=== PATIENT | female | born 1935 | race Caucasian/White ===

== ENCOUNTER → 2016-06-10 | Outpatient (CLI) | payer OTHER ==
[~2016-06-10] MED LIST: ACET-1256 PO; GLYB5TAB8 PO; IBUP-103 PO; LPR25 PO; METF750T PO; SIMV40TA2 PO; SITA100T3 PO; SULF800T23 PO
[2016-06-10 12:32] LABS: ESTIMATED AVERAGE GLUCOSE 154 mg/dl; HA1C FLAG Normal (Normal)
[2016-06-10 12:34] LABS: ALT/SGPT 39 U/L (12-78); BLOOD UREA NITROGEN 10 mg/dl (7-18); BUN/CREATININE RATIO 15.5 (10-20); CALCIUM 9.3 mg/dl (8.5-10.1); CARBON DIOXIDE 27 mmol/L (21-32); CHLORIDE 107 mmol/L (98-107); CHOLESTEROL 152 mg/dl (0-200); CREATININE 0.62 mg/dl (0.60-1.20); GLUCOSE 131 mg/dl (70-99); POTASSIUM 3.9 mmol/L (3.5-5.1); SODIUM 143 mmol/L (136-145)
[2016-06-10 12:37] LABS: ALB/GLOB RATIO 0.9 (0.9-2); ALKALINE PHOSPHATASE 131 U/L (45-117); AST/SGOT 46 U/L (15-37); HDL CHOLESTEROL 51 mg/dl; LDL CHOLESTEROL CALCULATED 71 mg/dl; TRIGLYCERIDES 150 mg/dl (0-150); VERY LOW DENSITY LIPOPROT CALC 30 mg/dl
== END | disposition home or self-care (01) ==
LOC: C.LABPVFM 10:14
PROVIDERS: ATTEND Family Medicine
DX: E11.9 Type 2 diabetes mellitus without complications (principal); E78.5 Hyperlipidemia, unspecified; I48.92 Unspecified atrial flutter; Z79.01 Long term (current) use of anticoagulants

== ENCOUNTER → 2016-06-12 | Outpatient (CLI) | payer OTHER ==
[2016-06-12 19:07] LABS: RATIO 12.3 mcg/mg (0-30.0)
== END | disposition home or self-care (01) ==
LOC: C.LABPVFM 11:45
PROVIDERS: ATTEND Family Medicine
DX: E11.9 Type 2 diabetes mellitus without complications (principal); E78.5 Hyperlipidemia, unspecified; I48.92 Unspecified atrial flutter; Z79.01 Long term (current) use of anticoagulants

== ENCOUNTER 2016-10-27 20:54 | Emergency (ER) | payer OTHER ==
[~2016-10-27] VITALS: Ht 162.6 cm; Wt 83.9 kg
[~2016-10-27 20:54] MED LIST changes: -SULF800T23 PO
[2016-10-27 21:02] VITALS: Ht 162.6 cm; Wt 83.9 kg
--- NOTE | 2016-10-27 21:47 | EMERGENCY ROOM VISIT NOTE ---
History Report prepared by Keshawn: Jean Jj Under the Supervision of: Dr. Daren Bui D.O. First contact with patient: 21:31 Chief Complaint: URINARY SYMPTOMS Stated Complaint: POOSIBLE UTI - FREQUENT URGE TO PEE & SOME PAIN History of Present Illness The patient is an 80 year old female who presents to the Emergency Room with complaints of persistent "burning" with urination that began this morning, several hours prior to arrival. The patient states that she has also been experiencing increased frequency today as well. She noted that after going voiding today she immediately felt the need to urinate again. She denies any associated back pain, fever, or hematuria. Source of History: patient Onset: Several hours EMERGENCY MEDICAL DISPATCHER Position: other (Genitourinary) Quality: burning (with urination) Timing: other (Persistent) Associated Symptoms: No back pain, No fevers Review of Systems See HPI for pertinent positives and negatives. A total of ten systems were reviewed and were otherwise negative. Past Medical & Surgical Medical Problems: (1) Atrial Fibrillation (2) Hyperlipidemia Nec/Nos (3) Hypertension Nos (4) Obesity, Nos Family History Diabetes mellitus FH: heart disease Social History Smoking Status: Never Smoker Marital Status: Housing Status: lives with family Occupation Status: retired Current/Historical Medications Scheduled Glyburide (Micronase), 5 MG PO BID Metformin Hcl (Glucophage Er), 750 MG PO BID Metoprolol Tartrate (Lopressor), 25 MG PO BID Simvastatin (Zocor), 40 MG PO QPM Sitagliptin Phosphate (Januvia), 100 MG PO DAILY Scheduled PRN Acetaminophen (Tylenol), 500 MG PO Q8 PRN Ibuprofen Tab (Advil), 200 MG PO Q8 PRN Allergies Uncoded Allergies: BEE STINGS (Allergy, Severe, TONGUE SWELLED, 02/10/13) Physical Exam Vital Signs Date Time Temp Pulse Resp B/P Pulse Ox O2 Delivery O2 Flow Rate FiO2 10/27/16 21:02 36.5 60 16 122/63 93 Room Air Physical Exam GENERAL: Awake, alert, well-appearing, in no distress HENT: Normocephalic, atraumatic. Oropharynx unremarkable. EYES: Normal conjunctiva. Sclera non-icteric. NECK: Supple. No nuchal rigidity. FROM. No JVD. RESPIRATORY: Clear to auscultation. CARDIAC: Regular rate, normal rhythm. Extremities warm and well perfused. Pulses equal. ABDOMEN: Soft, non-distended. No tenderness to palpation. No rebound or guarding. No masses. RECTAL: Deferred. MUSCULOSKELETAL: Chest examination reveals no tenderness. The back is symmetrical on inspection without obvious abnormality. There is no CVA tenderness to palpation. No joint edema. LOWER EXTREMITIES: Calves are equal size bilaterally and non-tender. No edema. No discoloration. NEURO: Normal sensorium. No sensory or motor deficits noted. SKIN: No rash or jaundice noted. Medical Decision & Procedures Laboratory Results Test 10/27/16 21:30 Urine Color DK YELLOW Urine Appearance CLEAR (CLEAR) Urine pH 5.0 (4.5-7.5) Urine Specific Mcgrady 1.033 (1.000-1.030) Urine Protein NEG (NEG) Urine Glucose (UA) NEG (NEG) Urine Ketones TRACE (NEG) Urine Occult Blood NEG (NEG) Urine Nitrite NEG (NEG) Urine Bilirubin NEG (NEG) Urine Urobilinogen NEG (NEG) Urine Leukocyte Esterase NEG (NEG) Laboratory results reviewed by me Medications Administered Medications (Trade) Dose Ordered Sig/Edison Route Start Time Stop Time Status Last Admin Dose Admin Trimethoprim/ Sulfamethoxazole (Septra Ds 800/ 160MG Tab) 1 tab NOW STAT PO 10/27/16 22:16 10/27/16 22:17 DC 10/27/16 22:16 1 TAB ED Course 2133: The patient was evaluated in room C5. A complete history and physical exam was performed. 2216: Ordered Trimethoprim 1 tablet PO 9: I reevaluated the patient. She is in no distress on reexamination. I discussed results and discharge instructions: She verbalized understanding and agreement. The patient is ready for discharge. Medical Decision Differential Diagnosis include: Urinary tract infection, Cystitis Impression Primary Impression: Acute cystitis Scribe Attestation The scribe's documentation has been prepared under my direction and personally reviewed by me in its entirety. I confirm that the note above accurately reflects all work, treatment, procedures, and medical decision making performed by me. Departure Information Dispostion Home / Self-Care Prescriptions Sulfa/Trimethoprim (Bactrim Ds 800MG/160MG) Tab 1 TAB PO BID, #6 TAB Prov: Daren Bui, DO 10/27/16 Referrals No Doctor, Assigned (PCP) Patient Instructions ED UTI Cystitis Female, My [facility] [facility] Problem Qualifiers Primary Impression: Acute cystitis Hematuria presence: without hematuria Qualified Codes: N30.00 - Acute cystitis without hematuria
[2016-10-27 22:08] LABS: URINE APPEARANCE CLEAR (CLEAR); URINE BILIRUBIN NEG (NEG); URINE COLOR DK YELLOW; URINE NITRITE NEG (NEG); URINE SPECIFIC GRAVITY 1.033 (1.000-1.030); UROBILINOGEN NEG (NEG)
[2016-10-27 22:12] LABS: MANUAL MICROSCOPIC REQUIRED? NO; REVIEW REQ? NO
[2016-10-27] MEDS ORDERED: SULFAMETHOXAZOLE/TRIMETHOPRIM DS 800/160MG TAB PO STA (22:16)
[2016-10-27] MEDS ORDERED: SULF800T23 PO (22:25)
[2016-10-27 22:36] VITALS: BP 144/78; PULSE 55; TEMP 36.5; O2SAT 95
== END 2016-10-27 22:37 | disposition home or self-care (01) ==
LOC: C.EDB 20:56 → C.EDC 22:37
DX: N30.00 Acute cystitis without hematuria (principal); I48.91 Unspecified atrial fibrillation; E78.5 Hyperlipidemia, unspecified; I10 Essential (primary) hypertension; E66.9 Obesity, unspecified; Z83.3 Family history of diabetes mellitus; Z82.49 Family history of ischemic heart disease and other diseases of the circulatory system; Z79.899 Other long term (current) drug therapy

== ENCOUNTER → 2017-01-09 | Outpatient (CLI) | payer OTHER ==
[~2017-01-09] MED LIST changes: +SULF800T23 PO
[2017-01-09 12:34] LABS: HEMATOCRIT 38.7 % (37-47); MEAN CELL VOLUME 92.6 fL (80-100); MEAN CORPUSCULAR HEMOGLOBIN 29.2 pg (25-34); MEAN CORPUSCULAR HGB CONC 31.5 g/dl (32-36); MEAN PLATELET VOLUME 10.2 fL (7.4-10.4); PLATELET COUNT 228 K/uL (130-400); RED BLOOD COUNT 4.18 M/uL (4.2-5.4); WHITE BLOOD COUNT 5.37 K/uL (4.8-10.8)
[2017-01-09 12:58] LABS: ALT/SGPT 33 U/L (12-78); AST/SGOT 40 U/L (15-37); BLOOD UREA NITROGEN 15 mg/dl (7-18); BUN/CREATININE RATIO 24.2 (10-20); CALCIUM 9.3 mg/dl (8.5-10.1); CARBON DIOXIDE 30 mmol/L (21-32); CHLORIDE 106 mmol/L (98-107); CHOLESTEROL 152 mg/dl (0-200); CREATININE 0.62 mg/dl (0.60-1.20); GLUCOSE 103 mg/dl (70-99); POTASSIUM 3.8 mmol/L (3.5-5.1); SODIUM 141 mmol/L (136-145); TRIGLYCERIDES 118 mg/dl (0-150); VERY LOW DENSITY LIPOPROT CALC 24 mg/dl
[2017-01-09 13:01] LABS: ALKALINE PHOSPHATASE 104 U/L (45-117); CHOLESTEROL/HDL RATIO 3.1; HDL CHOLESTEROL 49 mg/dl; LDL CHOLESTEROL CALCULATED 79 mg/dl
[2017-01-09 13:12] LABS: ESTIMATED AVERAGE GLUCOSE 137 mg/dl; HA1C FLAG Normal (Normal)
== END | disposition home or self-care (01) ==
LOC: C.LABPVFM 08:31
PROVIDERS: ATTEND Family Medicine
DX: Z51.81 Encounter for therapeutic drug level monitoring (principal); Z79.01 Long term (current) use of anticoagulants; I48.92 Unspecified atrial flutter; E11.9 Type 2 diabetes mellitus without complications; E78.5 Hyperlipidemia, unspecified; R42 Dizziness and giddiness; L71.9 Rosacea, unspecified

== ENCOUNTER → 2017-08-28 | Outpatient (CLI) | payer OTHER ==
[~2017-08-28] MED LIST changes: -SULF800T23 PO
[2017-08-28 13:37] LABS: HEMOGLOBIN A1C 6.5 % (4.5-5.6)
[2017-08-28 13:57] LABS: ALBUMIN 3.6 gm/dl (3.4-5.0); ALT/SGPT 26 U/L (12-78); BLOOD UREA NITROGEN 12 mg/dl (7-18); CALCIUM 9.4 mg/dl (8.5-10.1); CARBON DIOXIDE 31 mmol/L (21-32); CHOLESTEROL 137 mg/dl (0-200); CREATININE 0.56 mg/dl (0.60-1.20); GLUCOSE 107 mg/dl (70-99); POTASSIUM 3.9 mmol/L (3.5-5.1); SODIUM 141 mmol/L (136-145)
[2017-08-28 13:59] LABS: ALKALINE PHOSPHATASE 103 U/L (45-117); AST/SGOT 32 U/L (15-37); LDL CHOLESTEROL CALCULATED 58 mg/dl; TOTAL PROTEIN 7.4 gm/dl (6.4-8.2)
== END | disposition home or self-care (01) ==
LOC: C.LABPVFM 09:48
PROVIDERS: ATTEND Family Medicine
DX: E11.9 Type 2 diabetes mellitus without complications (principal); E78.5 Hyperlipidemia, unspecified; R74.8 Abnormal levels of other serum enzymes

== ENCOUNTER → 2017-10-02 | Outpatient (CLI) | payer OTHER ==
--- NOTE | 2017-10-02 16:54 | DIAGNOSTIC IMAGING REPORT ---
R WRIST MIN 3 VIEWS ROUTINE CLINICAL HISTORY: SWELLING OF RT THUMB, RT WRIST PAIN pain. Edema. COMPARISON: None. DISCUSSION: Generalized degenerative change throughout all major structures of the hand and wrist. Osteopenia. Degenerative change of the interphalangeal joints throughout. No evidence for fracture or dislocation. There is no evidence for soft tissue swelling. IMPRESSION: Significant degenerative change throughout all major osseous structures. No acute process. The above report was generated using voice recognition software. It may contain grammatical, syntax or spelling errors. Electronically signed by: Joaquin Clay M.D. 10/02/2017 4:52 PM Dictated Date/Time: 10/02/2017 4:52 PM
--- NOTE | 2017-10-02 16:55 | DIAGNOSTIC IMAGING REPORT ---
R FINGER(S) MIN 2 VIEWS ROUTINE CLINICAL HISTORY: SWELLING OF RT THUMB, RT WRIST PAIN pain. Edema. COMPARISON: None DISCUSSION: Considerable degenerative change of the first carpometacarpal joint. Moderate degenerative change of the metacarpal phalangeal and interphalangeal joint. Osteopenia. No acute bony abnormality. No evidence for fracture or dislocation. There is no evidence for soft tissue swelling. IMPRESSION: Generalized degenerative change. Osteopenia. No acute bony abnormality The above report was generated using voice recognition software. It may contain grammatical, syntax or spelling errors. Electronically signed by: Joaquin Clay M.D. 10/02/2017 4:53 PM Dictated Date/Time: 10/02/2017 4:53 PM
== END | disposition home or self-care (01) ==
LOC: C.RADPV 16:16
PROVIDERS: ATTEND Family Medicine
DX: R22.31 Localized swelling, mass and lump, right upper limb (principal); M25.531 Pain in right wrist

== ENCOUNTER 2020-01-19 07:27 | Observation (INO) ==
--- NOTE | 2020-01-10 10:20 | PAT Medication Instructions ---
Medication Instructions Date of Service January 10, 2020 Home Medications Medication Instructions Recorded apixaban 5 mg tablet 5 mg PO BID #180 tab 11/18/19 blood sugar diagnostic See Rx Instructions .ROUTE 11/18/19 .COMPLEX #150 strip metformin 750 mg tablet,extended 750 mg PO BID #180 tab 11/18/19 release 24 hr metoprolol tartrate 25 mg tablet 25 mg PO BID #180 tab 11/18/19 diclofenac sodium 1 % topical gel See Rx Instructions TOP ONCE vitamins A,C,S-gdix-oaospa 1 tab PO BID ferrous sulfate 1 dose PO QAM apixaban 5 mg tablet 5 mg PO BID metformin 750 mg tablet,extended release 24 hr 750 mg PO BID metoprolol tartrate 25 mg tablet 25 mg PO BID mirabegron [Myrbetriq] 25 mg PO QAM simvastatin 40 mg PO QPM sitagliptin 50 mg PO QAM ASK your prescriber and surgeon apixaban 5 mg tablet 5 mg PO BID (in order for spinal anesthesia, Apixaban/Eliquis needs to be stopped 72 hours/3 days before surgery. Please check if okay with doctor that prescribes this to you) STOP taking 2 weeks before surgery (or as soon as possible if surgery is within 2 weeks) vitamins A,C,Z-bnpn-xvtkpo 1 tab PO BID STOP taking 24 hours before surgery diclofenac sodium 1 % topical gel See Rx Instructions TOP ONCE DO NOT take the morning of surgery ferrous sulfate 1 dose PO QAM metformin 750 mg tablet,extended release 24 hr 750 mg PO BID mirabegron [Myrbetriq] 25 mg PO QAM sitagliptin 50 mg PO QAM Take morning of surgery With a small sip of water, OTHERWISE NOTHING TO EAT OR DRINK AFTER MIDNIGHT: metoprolol tartrate 25 mg tablet 25 mg PO BID Take evening before surgery metformin 750 mg tablet,extended release 24 hr 750 mg PO BID metoprolol tartrate 25 mg tablet 25 mg PO BID simvastatin 40 mg PO QPM Other Notes If you have any questions please call us at [phone] or [phone] or [phone] or [phone]
--- NOTE | 2020-01-11 08:14 | Anesthesiology Consultation ---
Date of Service January 11, 2020 Assessment & Plan (1) Encounter for pre-operative examination: - Awaiting surgeon-ordered PCP clearance scheduled 01/11 ([facility]). - Awaiting tracings from 01/06 EKG (done at [facility] cardiology office visit). - Cardiology office visit: 01/07/20: "Based on her functional status without limiting cardiopulmonary symptoms, normal EKG tracing, and that her cardiac risk factors are very well controlled -- patient is an acceptable surgical risk to proceed with bilateral mastectomy as scheduled - provided she take her usual dose of Lopressor 25 mg the morning of surgery with sips of water. Patient was advised to hold Eliquis x 48 hours leading up to surgery. There is no need for further cardiac workup at this time. Resume Eliquis postoperatively when hemostasis allows" *Per PAT assessment on 01/10: Travel screen negative. No known COVID-19 positive contacts. No current COVID-19 related symptoms. Surgeon arranging preop COVID testing 01/13 ([place]). Awaiting results. - Eliquis instructions per surgeon/prescriber. - Check [facility] AM DOS Chart Review Chart Review: Patient seen in Pre Admission Testing Teaching & Discussion Pre-Anesthesia Teaching/Discussion Notes: Instructed NPO after midnight before surgery,except medications with 15 cc of water. Medication instructions provided according to the PAT guidelines. History Surgery Operation Date: 01/19/20 09:40 Proposed Procedures p Bilateral Breast Mastectomy with Right [place] Lymph Node Biopsy - Daren Limon DO, FACS Height/Weight Height: 5 ft 4 in Weight: 65.7 kg Allergies Allergy/AdvReac Type Severity Reaction Status Date / Time BEE STINGS Allergy Severe TONGUE Uncoded 01/10/20 10:13 SWELLING Medications Home Medications Medication Instructions Recorded Confirmed Last Taken diclofenac sodium 1 % topical gel See Rx Instructions TOP ONCE gm 12/28/18 01/07/20 Unknown vitamins A,C,Z-vfjz-bthwtd 1 tab PO BID 12/28/18 01/07/20 Unknown ferrous sulfate 1 dose PO QAM 01/07/19 01/07/20 Unknown lancets 28 gauge #25 ea 01/14/19 01/07/20 Unknown apixaban 5 mg tablet 5 mg PO BID #180 tab 11/18/19 01/07/20 Unknown blood sugar diagnostic See Rx Instructions .ROUTE 11/18/19 01/07/20 Unknown .COMPLEX #150 strip metformin 750 mg tablet,extended 750 mg PO BID #180 tab 11/18/19 01/07/20 Unknown release 24 hr metoprolol tartrate 25 mg tablet 25 mg PO BID #180 tab 11/18/19 01/07/20 Unknown mirabegron [Myrbetriq] 25 mg PO QAM 01/07/20 01/07/20 Unknown simvastatin 40 mg PO QPM 01/07/20 01/07/20 Unknown sitagliptin 50 mg PO QAM 01/07/20 01/07/20 Unknown Past Medical History Medical History (Updated 01/11/20 @ 10:56 by Estfeania Barroso) Anemia chronic, baseline hgb 10-11 range per chart review Atrial fibrillation dx 2012 - w/ kelsey - on eliquis Atypical ductal hyperplasia of left breast Bilateral breast cancer DM type 2 (diabetes mellitus, type 2) NIDDM CIRCLE (hard of hearing) Hyperlipidemia Osteoarthritis Paroxysmal atrial flutter Rosacea Vertigo Exercise / Class Metabolic Activity III < 4 Walking/Shop/Light housework Past Family History Family History Sister Cancer Other No family history of adverse response to anesthesia Denies family history of Ovarian cancer Prostate cancer Myocardial infarction Breast cancer Lung cancer Colorectal cancer Past Surgical History Surgical History History of appendectomy History of breast biopsy History of cataract surgery History of hysterectomy Past Anesthesia History No Hx of Anesthesia Complications and No Family Hx of Anesthesia Complications History of PONV No Hx of PONV and Hx of Motion Sickness (occasional) Social History Smoking Status: Never smoker Do You Dip or Chew Tobacco: No Hx Alcohol Use: No Hx Substance Use: No Review of Systems Patient denies chest pain, shortness of breath, fever, chills, cough, wheezing, palpitations. Physical Exam Vital Signs VITALS BP 102/52 P 58 TEMP 98.2 SP02 95%RA RESP 18 PHYSICAL Full neck and c-spine range of motion. Full TMJ range of motion. TMD 2.5 finger breaths Mallampati Score 2 Dentition: upper partial Lungs: clear throughout to auscultation Cardiac: regular rate and rhythm, no murmurs noted Spine: normal Carotid arteries: negative bruit Extremities: no edema Testing Laboratory Results 01/11/20 08:26 01/11/20 08:26 11/11/19 HGBA1C 6.0% Electrocardiogram Date: 01/07/20 "Sinus bradycardia at 57 bpm, normal electrical intervals, normal R wave progression" per 01/07/20 [facility] cardiology office visit note. Attempting to obtain official tracings. Chest X-Ray Date: 01/11/20 Findings: + NAD
--- NOTE | 2020-01-11 08:58 | XRay Report ---
XR chest Pre-admission PA/Lat CLINICAL HISTORY: pat preoperative COMPARISON STUDY: 02/08/2016 FINDINGS: The bones soft tissues and hemidiaphragms are normal. The cardiomediastinal silhouette is n ormal. The lungs are clear. The pulmonary vasculature is normal. IMPRESSION: Negative chest. ACT 112: Negative or not required by law. The above report was generated using voice recognition software. It may contain grammatical, syntax or spelling errors. Electronically signed by: Joaquin Clay M.D. 01/11/2020 8:56 AM
[2020-01-11 10:10] LABS: Basophils # (auto) 0.02 K/uL (0-0.2); Basophils % (auto) 0.4 %; Eosinophils # (auto) 0.21 K/uL (0-0.5); Eosinophils % (auto) 4.4 %; Hematocrit (blood only) 32.7 % (37-47); Hemoglobin 10.2 g/dL (12.0-16.0); Lymphocytes # (auto) 0.84 K/uL (1.2-3.4); Lymphocytes % (auto) 17.5 %; Mean Corpuscular Hemoglobin 29.1 pg (25-34); Mean Corpuscular Hgb Conc 31.2 g/dL (32-36); Mean Corpuscular Volume 93.4 fL (80-100); Monocytes # (auto) 0.51 K/uL (0.11-0.59); Monocytes % (auto) 10.6 %; Neutrophils # (auto) 3.21 K/uL (1.4-6.5); Neutrophils % (auto) 67.1 %; Platelet Count 277 K/uL (130-400); RDW Coefficient of Variation 15.5 % (11.5-14.5); RDW Standard Deviation 52.5 fL (36.4-46.3); White Blood Count 4.79 K/uL (4.8-10.8)
[2020-01-11 10:21] LABS: Albumin Level 3.2 gm/dl (3.4-5.0); BUN Creatinine Ratio 23.8 (10-20); Bilirubin Direct 0.2 mg/dl (0-0.2); Est GFR (African American) 96.3; Est GFR (Non-African American) 83.1; Potassium 3.8 mmol/L (3.5-5.1)
[2020-01-11 10:24] LABS: Bilirubin,Total 0.7 mg/dl (0.2-1); Total Protein 6.7 gm/dl (6.4-8.2)
[~2020-01-19 07:27] MED LIST changes: -ACET-1256 PO; +CEFAZOLIN 2000MG 2,000 MG/15 ML SYR IV SCH; -GLYB5TAB8 PO; -IBUP-103 PO; -LPR25 PO; +LR 15ML/HR IV SCH; -METF750T PO; -SIMV40TA2 PO; -SITA100T3 PO
--- NOTE | 2020-01-19 09:58 | Nuclear Medicine Report ---
LYMPHOSCINTIGRAPHY HISTORY: Right breast cancer. RADIOTRACER: 0.5-5 mCi of lymphoseek. Study/Images: static anterior and lateral. PROCEDURE: Using standard sterile technique, four intradermal and one deep injections of radiotracer were placed in the right periareolar breast. The patient tolerated the procedure well without any complications. FINDINGS: Tracer localization was demonstrated at the injection site. In addition, focal tracer uptake in the r ight axilla was demonstrated and marked cutaneously. IMPRESSION: Lymphoscintigraphy was performed and a right axillary sentinel lymph node localized and marked for bi opsy. ACT 112: Negative or not required by law. Electronically signed by: Hermelindo Nguyen M.D. 01/19/2020 9:57 AM
--- NOTE | 2020-01-19 11:24 | History & Physical Bridge Note ---
Date of Service January 19, 2020 History & Physical Bridge Note I have examined the patient, reviewed the History & Physical and in the interval since the performance of the History & Physical I have noted the following changes of clinical significance: [place] lymph node injection performed, lymphoscintigraphy confirms uptake into axilla. No other changes noted
[2020-01-19] MEDS ORDERED: ONDANSETRON INJ 2 MG/ML 2 ML VIAL IV PRN ×2 (12:06→17:15)
[2020-01-19] MEDS ORDERED: HYDROmorphone INJ 1 MG/ML SYRINGE IV PRN (12:06)
[2020-01-19] MEDS ORDERED: fentaNYL citrate 100 MCG/2 ML VIAL IV PRN (12:06)
[2020-01-19] MEDS ORDERED: ePHEDrine sulfate 50 MG/ML AMP IV PRN (12:06)
[2020-01-19] MEDS ORDERED: ATROPINE SULFATE 0.1 MG/ML 10ML SYR IV PRN (12:06)
[2020-01-19] MEDS ORDERED: BUPIVACAINE 0.5 % 5 MG/1 ML MPF 30ML VIAL ONE (12:24)
[2020-01-19] MEDS ORDERED: ISOSULFAN BLUE 10 MG/ML VIAL 5 ML ONE (12:24)
[2020-01-19] MEDS ORDERED: LIDOCAINE HCL 2% 2 ML VIAL/AMP(20MG/ML) INFIL ONE (12:25)
[2020-01-19] MEDS ORDERED: ONDANSETRON INJ 2 MG/ML 2 ML VIAL ONE (12:25)
[2020-01-19] MEDS ORDERED: PROPOFOL IV EMULSION 10 MG/ML 20 ML VIAL IV ONE (12:25)
[2020-01-19] MEDS ORDERED: ROCURONIUM BROMIDE 10 MG/ML 5 ML VIAL IV ONE (12:25)
[2020-01-19] MEDS ORDERED: fentaNYL citrate 100 MCG/2 ML VIAL ONE ×2 (12:25→13:31)
[2020-01-19] MEDS ORDERED: BUPIVACAINE LIPOSOME 1.3% 266 MG/20 ML VIAL ONE (13:04)
[2020-01-19] MEDS ORDERED: GLYCOPYRROLATE 0.2 MG/ML VIAL ONE ×2 (13:41→13:57)
[2020-01-19] MEDS ORDERED: NEOSTIGMINE METHYLSULFATE 5 MG/5 ML SYR ONE (13:56)
[2020-01-19] MEDS ORDERED: PHENYLEPHRINE 100MCG/ML 5ML SYR ONE (14:10)
[2020-01-19] MEDS ORDERED: ePHEDrine sulfate 50 MG/ML SYR ONE (14:11)
[2020-01-19] MEDS ORDERED: MoRPHine SULFATE 2 MG/ML CARP ONE (14:36)
--- NOTE | 2020-01-19 15:01 | Operative Report ---
PG Post Operative Report Pre & Post Diagnosis Operation Date: 01/19/20 11:30 Pre-Op Diagnosis: Invasive ductal carcinoma of right breast Post-Op Diagnosis: Invasive ductal carcinoma of right breast I identified the patient and participated in the time-out.: Yes Procedure Operation Date: 01/19/20 11:30 Actual Procedures p Bilateral Breast Mastectomy with Right [place] Lymph Node Biopsy(Bilateral) - Daren Limon DO, CAROL Surgeon Daren Limon DO, CAROL Polyethylene Bag Machine Operator Flakita John; Francesca Caballero Estimated Blood Loss 40 Findings Consistent with Post-Op Diagnosis Left simple mastectomy performed. Right sentinel lymph node biopsy performed, packet of 2-3 lymph nodes excised. Right simple mastectomy performed, 10 mm GARY drains placed bilaterally, Exparel mixed with Marcaine injected both sides. Specimens Left mastectomy Left excess tissue Right axillary sentinel lymph node Right mastectomy Drains 10 mm GARY drains in bilateral mastectomy beds Anesthesia Type General Complications none Disposition Accompanied Patient To Recovery: No Disposition: Recovery Room Indications 84-year-old female with invasive ductal carcinoma of the right breast and atypical ductal proliferation of the left breast. We discussed options to include left breast biopsy and right breast lumpectomy with sentinel lymph node biopsy versus mastectomies. The patient elects for bilateral mastectomies and right axillary sentinel lymph node biopsy. The risks of the procedure were discussed, all questions were answered, and the patient agreed to proceed with surgery as planned. Description of Procedure The patient had a sentinel lymph node injection performed prior to the procedure and lymphoscintigraphy showed uptake into the right axilla. The axilla was examined in the OR with a gamma probe and confirmed uptake into the axilla. The patient was properly identified, consented, and taken to the operating room where she was placed in the supine position. General endotracheal anesthesia was induced. SCDs and a safety belt were placed. Preoperative antibiotics were administered. The patient's bilateral chest was prepped and draped in the standard sterile fashion. Surgical timeout was performed and all parties were in agreement that this was the correct patient and procedure to be performed and we continued as planned. A transversely oriented elliptical incision was made that encompassed the nipple-arreolar complex on the left. Flaps were raised to the clavicle superiorly, the sternum medially, and the rectus sheath inferiorly. The breast was then taken off the chest wall including the pectoralis fascia from medial to lateral. We then continued the dissection along the lateral border of the pectoralis muscle and included the axillary tail of Lai. We completed the dissection and the specimen was removed. The specimen was oriented. The wound was irrigated and hemostasis was confirmed. A 10 mm GARY drain was placed underneath the mastectomy flap. This was secured into place with 2-0 nylon suture. The skin was closed with interrupted 3-0 Vicryl deep dermal sutures, followed by 4-0 Monocryl running subcuticular suture. We now turned our attention to the right axillary sentinel lymph node biopsy. An incision was made in the right axilla in a natural skin crease and deepened down to subcutaneous tissue with electrocautery. The gamma probe was used to localize the sentinel lymph node which read 130 ex vivo. This appeared to be a packet of 2-3 lymph nodes, the second of which measured approximately 30 with a gamma probe. The lymphovascular stalks entering and exiting this packet of lymph nodes were ligated with 3-0 silk ties. The axilla was reexamined with the gamma probe and was silent. The wound was packed and attention turned to the breast lesion. The skin was closed with interrupted 3-0 Vicryl deep dermal sutures followed by 4-0 Monocryl running subcuticular sutures. Attention was then turned to the right mastectomy. A transversely oriented elliptical incision was made that encompassed the nipple-arreolar complex on the right. Flaps were raised to the clavicle superiorly, the sternum medially, and the rectus sheath inferiorly. The breast was then taken off the chest wall including the pectoralis fascia from medial to lateral. We then continued the dissection along the lateral border of the pectoralis muscle and included the axillary tail of Lai. We completed the dissection and the specimen was re moved. The specimen was oriented. The wound was irrigated and hemostasis was confirmed. A 10 mm GARY drain was placed underneath the mastectomy flap. This was secured into place with 2-0 nylon suture. The skin was closed with interrupted 3-0 Vicryl deep dermal sutures, followed by 4-0 Monocryl running subcuticular suture. Dermabond was then placed over all the incisions. The patient was extubated in the operating room and taken to the PACU where she recovered without apparent incident. All sponge, instrument and needle counts were correct at the conclusion of the procedure. The patient tolerated the procedure well. The physician's assistants were present for the entirety of the case and were critical in positioning the patient, prepping and draping, retraction and exposure, excision of the specimens, closure of the incisions, and placement of the dressings. I attest to the content of the Intraoperative Record and any orders documented therein. Any exceptions are noted below.
--- NOTE | 2020-01-19 16:33 | Anesthesiology Progress Note ---
Date of Service January 19, 2020 Anesthesia Post Procedure Vital Signs Vital Signs: Temp Pulse Pulse Resp BP Pulse Ox 01/19/20 16:20 36.5 C 50 L 17 158/50 H 98 01/19/20 16:10 53 L 14 155/57 H 100 01/19/20 16:00 49 L 15 162/65 H 100 01/19/20 15:50 48 L 15 145/64 H 100 01/19/20 15:46 36.2 C L 53 L 16 148/64 H 100 01/19/20 10:11 36.7 C 53 L 16 141/53 H 97 Pain Intensity Right Axilla: Pain Intensity: 2 Transfer of Care Handoff Completed per policy Notes Mental Status: alert / awake / arousable and participated in evaluation Patient Amnestic to Procedure: Yes Nausea / Vomiting: adequately controlled Pain: adequately controlled Airway Patency, RR, SpO2: stable & adequate BP & HR: stable & adequate Hydration State: stable & adequate Anesthetic Complications: no major complications apparent and Pt Satisfied with anesthetic care
[2020-01-19] MEDS ORDERED: GLUCOSE 10 TABS/TUBE PO PRN (17:15)
[2020-01-19] MEDS ORDERED: GLUCOSE 40% GEL 15 GM TUBE PO PRN (17:15)
[2020-01-19] MEDS ORDERED: MoRPHine SULFATE 4 MG/ML 1 ML CARP\\VIAL IV PRN (17:15)
[2020-01-19] MEDS ORDERED: INSULIN ASPART 100 UNITS/ML 3 ML PEN SC PRN (17:15)
[2020-01-19] MEDS ORDERED: CARBOHYDRATES FOR HYPOGLYCEMIA PO PRN (17:15)
[2020-01-19] MEDS ORDERED: MoRPHine SULFATE 10 MG/ML CARP/VIAL IV PRN (17:15)
[2020-01-19] MEDS ORDERED: OXYCODONE/ACETAMINOPHEN 5mg/325mg TAB PO PRN ×2 (17:15)
[2020-01-19] MEDS ORDERED: DEXTROSE 50% 50 ML SYRINGE IV PRN (17:15)
[2020-01-19] MEDS ORDERED: GLUCAGON FOR INJ 1 MG VIAL SQ PRN (17:15)
[2020-01-19] MEDS: LACTATED RINGER'S 1,000 ML IV SCH (17:30)
[2020-01-19] MEDS: ACETAMINOPHEN 325 MG TAB PO PRN (17:56)
[2020-01-19] MEDS ORDERED: CEFAZOLIN 2000MG 2,000 MG/15 ML SYR IV ONE (20:00)
[2020-01-19] MEDS: METOPROLOL TARTRATE 25 MG TAB PO SCH (20:55)
[2020-01-19] MEDS: INSULIN ASPART 100 UNITS/ML 3 ML PEN SC SCH (20:56)
[2020-01-19] MEDS ORDERED: SIMVASTATIN 40 MG TAB PO SCH (21:00)
[2020-01-20 06:20] LABS: Hematocrit (blood only) 27.9 % (37-47); Mean Corpuscular Hemoglobin 29.2 pg (25-34); Mean Corpuscular Hgb Conc 32.3 g/dL (32-36); Mean Corpuscular Volume 90.6 fL (80-100); Mean Platelet Volume 9.8 fL (7.4-10.4); Platelet Count 203 K/uL (130-400); RDW Coefficient of Variation 15.3 % (11.5-14.5); RDW Standard Deviation 50.6 fL (36.4-46.3); Red Blood Count 3.08 M/uL (4.2-5.4); White Blood Count 6.32 K/uL (4.8-10.8)
[2020-01-20] MEDS: LACTATED RINGER'S 1,000 ML IV SCH (06:27)
[2020-01-20 06:50] LABS: BUN Creatinine Ratio 13.8 (10-20); Calcium 8.6 mg/dl (8.5-10.1); Creatinine Clr Calc Pharmacy 44.4 ml/min; Est GFR (African American) 77.9; Est GFR (Non-African American) 67.2; Potassium 3.6 mmol/L (3.5-5.1)
[2020-01-20] MEDS: METOPROLOL TARTRATE 25 MG TAB PO SCH (09:00)
[2020-01-20] MEDS ORDERED: MIRABEGRON ER 25 MG TAB PO SCH (09:00)
[2020-01-20] MEDS: INSULIN ASPART 100 UNITS/ML 3 ML PEN SC SCH ×2 (09:06→12:29)
--- NOTE | 2020-01-20 14:19 | Surgery Progress Note ---
Date of Service January 20, 2020 Assessment & Plan (1) Invasive ductal carcinoma of right breast: POD #2 bilateral mastectomy and right axillary sentinel lymph node biopsy, doing well. Five-point drop in hematocrit not unexpected. Patient could potentially be discharged this afternoon. Possible discharge this afternoon versus tomorrow Wound care instructions and activity restrictions reviewed Follow-up in general surgery clinic next week for drain removal Return precautions given, call with questions or concerns Admission and Anticipated Discharge Date Admission Date: January 19, 2020 Subjective 84-year-old female POD #1 bilateral mastectomy with right axillary lymph node biopsy. Overall doing well, minimal pain. She tolerated lunch and was up in a chair for a long time today. She has ambulated. Still feeling tired. Physical Exam Constitutional: WD/WN, vitals as above Chest (Breasts): Additional Comments: Bilateral mastectomy flaps healing well without any evidence of necrosis or infection. Incisions healing well with Dermabond in place. Some ecchymosis to right axillary incision. GARY drains with serosanguineous output. Results & Data ([facility]) Vital Signs (Past 12 Hours) Vital Signs Temp Pulse Resp BP Pulse Ox 01/20/20 13:01 103/58 L 01/20/20 12:20 36.9 C 69 16 95/55 L 97 01/20/20 09:00 59 L 104/60 01/20/20 07:46 36.8 C 57 L 14 110/57 L 98 01/20/20 03:57 36.5 C 56 L 16 98/60 L 98 Laboratory Results Laboratory Results - last 24 hr 01/19/20 01/19/20 01/19/20 15:53 17:05 20:27 WBC RBC Hgb Hct MCV MCH MCHC RDW Std Deviation RDW Coeff of [place] Plt Count MPV Sodium Potassium Chloride Carbon Dioxide Anion Gap BUN Creatinine Est Cr Clr Drug Dosing Est GFR ( Amer) Est GFR (Non-Af Amer) BUN/Creatinine Ratio Glucose POC Glucose 130 H 137 H 148 H Calcium 01/20/20 01/20/20 01/20/20 05:49 05:49 08:02 WBC 6.32 RBC 3.08 L Hgb 9.0 L Hct 27.9 L MCV 90.6 MCH 29.2 MCHC 32.3 RDW Std Deviation 50.6 H RDW Coeff of [place] 15.3 H Plt Count 203 MPV 9.8 Sodium 143 Potassium 3.6 Chloride 107 Carbon Dioxide 29 Anion Gap 7.0 BUN 11 Creatinine 0.80 Est Cr Clr Drug Dosing 44.4 Est GFR ( Amer) 77.9 Est GFR (Non-Af Amer) 67.2 BUN/Creatinine Ratio 13.8 Glucose 107 H POC Glucose 108 H Calcium 8.6 01/20/20 11:49 WBC RBC Hgb Hct MCV MCH MCHC RDW Std Deviation RDW Coeff of [place] Plt Count MPV Sodium Potassium Chloride Carbon Dioxide Anion Gap BUN Creatinine Est Cr Clr Drug Dosing Est GFR ( Amer) Est GFR (Non-Af Amer) BUN/Creatinine Ratio Glucose POC Glucose 144 H Calcium PG Care Time/CCT Total # of Minutes Spent Total Time Spent with Patient: Total time spent is greater than 50% in coordination of care (as documented) at patient's floor/unit and/or counseling patient: Coding Level of Care Code 09092 Subseq Obs Care Lvl 1 Diagnoses Invasive ductal carcinoma of right breast C50.911
[2020-01-20] MEDS: ACETAMINOPHEN 325 MG TAB PO PRN (18:50)
--- NOTE | 2020-01-24 10:38 | Discharge Summary ---
Date of Service January 24, 2020 Principal Diagnosis Invasive ductal carcinoma of right breast Discharge Exam awake Gastrointestinal (Abdomen) Inspection/Auscultation: + abdominal surgical incision (incisions healing well with dermabond over top) and + abdominal surgical drain present (GARY x2 with serosangenious drainage) Discharge Data Allergies Allergy/AdvReac Type Severity Reaction Status Date / Time BEE STINGS Allergy Severe TONGUE Uncoded 01/19/20 10:04 SWELLING Procedures Performed Operation Date: 01/19/20 11:30 Actual Procedures p Bilateral Breast Mastectomy with Right [place] Lymph Node Biopsy(Bilateral) - Daren Limon DO, FACS Hospital Course (1) Invasive ductal carcinoma of right breast: This is an 84y F with a PMH of right breast cancer who presented to the [facility] on 01/19/20 for a scheduled bilateral mastectomy with right axillary sentinel lymph node biopsy. The patient tolerated the procedure well, see op note for full details. Post operatively the patient was transferred to the med/surg floor in stable condition with a regular diet, prn pain medication, and with GARY drain x2. On POD#1 patient was tolerating a regular diet and pain remained well controlled. Her vital signs were stable and GARY drains were with serosanguineous output. Patient's surgical sites intact, with Dermabond over incisions. On POD#1 the patient felt comfortable for discharge to home with her daughter's assistance. Home health was set up as well and GARY drain teaching was performed. On 01/19 patient was discharged with instructions to follow up in surgery clinic within 1 week for a post operative check up. Total Time Total Time Spent Total Time Spent (In Minutes): 10 Discharge Plan Discharge Items Patient Disposition: Home - Self-Care Reason For Visit: Right Breast Cancer; Diabetes Discharge Diagnosis: bilateral breast mastectomy with right sentinel lymph node biopsy Activity: Per Instructions section Lifting Comment: no more than 20lbs Bathing Comment: may shower; no soaking in tubs/pools Exercise/Sports: Wait until after follow-up appointment Driving/Machine Use: 1 week off from driving, do not resume driving while taking narcotics Non-emergency contact: Surgeon Call non-emergency contact if: you have any medication questions, your symptoms worsen, your pain is not controlled, your pain is worsening, your pain is unusual for you, your pain is concerning for you, you have a fever, your temperature is above 101.5, your wound has increased redness, your wound has increased drainage and your wound pain has increased Follow-up/Referrals: Daren Limon DO, CAROL [Physician] - 01/27/20 11:45 am (Please call the office to schedule follow up in clinic within 1-2 weeks) Jose Keen DO [Primary Care Provider] - Diet: Carb Consistent or DM2 Addtl Attending Provider Instructions: Please care for your surgical GARY drains as you have been instructed to prior discharge from the hospital. Empty drain 2-3 times per day and record your output. Do not take Tylenol and Percocet concurrently for pain, they both contain Acetaminophen and you should not exceed more than 3grams of Acetaminophen within a 24 hour time period. If you do not require the narcotic for pain you may just take plain Tylenol, 650mg orally every 6 hours as needed. You may resume your Eliquis starting tomorrow, 01/21/20. Pending Studies at Discharge: Yes Studies:: surgical pathology Stand-Alone Forms: [facility], Opioid Pain Management Medications and DC Order Prescriptions: New oxycodone-acetaminophen [Percocet] 5-325 mg tablet 1 - 2 tab PO .q4-6h PRN (Reason: pain, for initial therapy, max 6 tabs per day) Qty: 15 RF: 0 Continued Eliquis 5 mg tablet 5 mg PO BID Qty: 180 RF: 1 blood sugar diagnostic [OneTouch Ultra Blue Test Strip] Strip See Rx Instructions .ROUTE .COMPLEX Qty: 150 RF: 5 metformin 750 mg tablet extended release 24 hr 750 mg PO BID Qty: 180 RF: 1 metoprolol tartrate 25 mg tablet 25 mg PO BID Qty: 180 RF: 1 vitamins A,C,W-mzfk-jwgisp 1 tab PO BID RF: 0 ferrous sulfate 1 dose PO QAM RF: 0 (DME) lancets [Lite Touch Lancets] 28 gauge misc See Dose Instructions .ROUTE .MEDSUPPLY Qty: 25 RF: 0 simvastatin 40 mg tablet 40 mg PO QPM RF: 0 sitagliptin 50 mg tablet 50 mg PO QAM RF: 0 Myrbetriq 25 mg tablet extended release 24 hr 25 mg PO QAM RF: 0 Discharge Orders: Discharge Order (Routine); Ordered 01/20/20 Ordered By: Francesca Caballero Admission Data Admit Date/Time: 01/19/20 15:57 Attending Provider: Daren Limon Admit Provider: Daren Limon Primary Care Provider: Jose Keen Other Interventions: Discharge Summary Assessment (RN) Last Done: 01/20/20 18:33 Coding Level of Care Code D/C Day Management <30 mins Diagnoses Invasive ductal carcinoma of right breast C50.911
== END 2020-01-20 20:11 | disposition home or self-care (01) ==
LOC: ASU 07:27 → 3N 15:57 → INTOOBSV 15:57

== ENCOUNTER 2022-06-21 06:40 | Inpatient (IN) ==
[2022-06-21] MEDS ORDERED: ONDANSETRON INJ 2 MG/ML 2 ML VIAL ONE ×2 (06:48→11:32)
[2022-06-21] MEDS ORDERED: SODIUM CHLORIDE 0.9% 500 ML IV STA (06:52)
[2022-06-21] MEDS ORDERED: ACETAMINOPHEN 1,000 MG/100 ML VIAL IV STA (06:52)
[2022-06-21] MEDS ORDERED: PANTOprazole 80 MG in DEXTROSE 5% 100 ML IV STA (06:56)
--- NOTE | 2022-06-21 06:56 | Emergency Department Note ---
Impression & Plan Acute cholecystitis, Hematemesis, Elevated liver enzymes, Fever, Atrial fibrillation with rapid ventricular response, Coagulopathy ED Provider Note NAME: VERO STANTON AGE: 86 SEX: F : 1935 ARRIVES VIA: Ambulance INFORMANT: [Patient][ems, nursing] ED PROVIDER(S): [Kirby Mcwilliams MD] CHIEF COMPLAINT: Abdominal pain, vomiting HISTORY OF PRESENT ILLNESS: The patient is an 86-year-old female who presents to the ER with abdominal pain that began last evening. She has been vomiting and some of the vomitus has been coffee-ground in appearance. The patient is on Eliquis. In route, she was given IV Zofran. Currently, she denies abdominal pain but of note, she is a poor historian. No further history obtainable given the mental state. Of note, a low-grade fever was detected by nursing staff upon the patient's arrival. PMHx/PSHx: See Below SOCIAL HISTORY: See Below. PHYSICAL EXAM: GENERAL: Patient is in no acute distress. Coffee-ground emesis dried on a few areas of her face. HEENT: No acute trauma, normocephalic atraumatic, mucous membranes moist, no nasal congestion. NECK: No stridor, no adenopathy, no meningismus, trachea is midline. LUNGS: Clear to auscultation bilaterally when listening anterior, no respiratory distress, no wheeze. HEART: Subtle systolic murmur, regular rate and rhythm. ABDOMEN: Soft, nontender, bowel sounds positive, no peritonitis. EXTREMITIES: No cyanosis, mild bilateral pedal edema, full range of motion of all the joints without pain or difficulty, no signs for acute trauma. NEUROLOGIC: Awake and alert, no acute motor or sensory deficits, no focal weakness. SKIN: No rash, no jaundice, no diaphoresis. DIFFERENTIAL DIAGNOSIS: Diverticulosis, AVM, coagulopathy, colitis, diverticulitis, malignancy, Flakita- Tripp tear, esophagitis, peptic ulcer disease, variceal bleed, gastritis, viral or foodborne illness, RSV, COVID-19, influenza, as well as other pathologies. EMERGENCY DEPARTMENT COURSE/PROCEDURES: Prior/Outside records reviewed: Recent surgical notes, EMS sheets, assisted documentation ECG per my interpretation: Indication was possible GI bleed. The ECG shows a normal sinus rhythm with some baseline artifact. The rate is 82. There is some T wave flattening in the lateral leads. There is some poor R wave progression. No ST elevation. The QTc is 457. No PVCs. Compared to an ECG from 28 May 2022, the T wave changes. Repeat ECG: Indication was tachycardia. As per my review, the patient appears to have a rapid A. fib with a rate of 140. There is an old septal infarct. There are inverted T waves noted in the lateral leads. There is no ST elevation. The QTc is 412. Compared to an ECG from earlier today, the A. fib is now present, the T wave inversions are now present. Continuous Cardiac Monitoring per my interpretation: An order was placed for continuous cardiac monitoring. The monitor shows a rate of 84 with normal sinus rhythm. Critical Care Note: I have personally spent 52 minutes of critical care time in the direct management of this patient. This includes bedside care, interpretation of diagnostic studies, and testing, discussion with consultants, patient, and family members, and other required patient management activities. This 52 minutes is in excess of all separately billable procedures. MEDICAL DECISION MAKING: There is no leukocytosis. The patient is anemic but her hemoglobin is baseline looking back at previous testing. There is a normal platelet count. No coagulopathy by our testing. No renal failure. Magnesium was low at 1.5. Lactic acid level was elevated at 2.7, this elevation could be from infection or dehydration. Liver enzyme testing did show elevations. The AST was over one thousand. No evidence for pancreatitis. Patient appeared to be in euthyroid state. Urinalysis does not show evidence for infection. COVID, influenza and RSV test were negative. Chest film did not show free air, pneumonia or mediastinal widening. ECG initially showed a normal sinus rhythm without obvious ST elevation. Cardiac enzyme testing x1 did not show any evidence of acute cardiac injury. Repeat ECG showed a rapid A. fib with some T wave inversions. No ST elevation. Abdominal and pelvis CT shows potential colitis as well as possibly acute cholecystitis. The patient was given 1.5 L of IV saline. She initially received IV ceftriaxone but then was given IV Zosyn when the cholecystitis was seen. She received IV Protonix for the presumed hematemesis/upper GI bleed. She was given IV Zofran for nausea, she received IV magnesium. Patient was given IV Tylenol for fever. She was ordered for an IV diltiazem bolus and placed on a diltiazem drip. The diltiazem was ordered to help control the rapid A. fib. I did speak with general surgery, they will see the patient in consult but recommended a medical admission. I did speak with case management, I spoke with the on-call hospitalist. I did speak with the patient's family at bedside, I spoke with the patient. Everyone is now aware of the findings and the reason for the hospital stay. The patient is doing well despite the findings on imaging. Her blood pressure is normal. Her pulse was initially normally until she developed a rapid A. fib, she does carry history of A. fib/a flutter. Certainly, upper GI bleeding is a concern as well, she is on Eliquis and appears to have some coffee-ground material on her face from an earlier episode of vomiting. I think the vomiting is a result of the acute cholecystitis. With the potential hematemesis, the hemoglobin will need to be followed closely. DISPOSITION: Patient's findings and presentation warrant a hospital stay. Past Med/Surg History Medical History Anemia chronic, baseline hgb 10-11 range per chart review Atypical ductal hyperplasia of left breast Bilateral breast cancer DM type 2 (diabetes mellitus, type 2) NIDDM [place] (hard of hearing) Hyperlipidemia assisted resident [facility] resident, in [place] Osteoarthritis Paroxysmal atrial flutter Recurrent UTI Rosacea Squamous cell carcinoma in situ Vertigo occasional Surgical History History of appendectomy History of bilateral mastectomy History of breast biopsy History of cataract surgery History of hysterectomy History of surgery (06/11/22) Wide Local Excision Left Upper Extremity Squamous Cell Carcinoma(Left) - Santiago Gong, Hx of bilateral mastectomy Family History Sister Cancer Other No family history of adverse response to anesthesia Denies family history of Ovarian cancer Prostate cancer Myocardial infarction Breast cancer Lung cancer Colorectal cancer Social History Smoking Status: Unknown if ever smoked Second Hand Exposure: No; Preferred Language: Togolese Communication Ability: Effective Visual Impairment: No 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 Beliefs That Will Affect Care: None marital status: / Current Living Situation: Personal Care Facility Current Living Situation Comment: [facility] current occupational status: retired How many Children do You have: 2 Feels Safe at Home: Yes Childhood Exposure to Second-Hand Smoke: Yes caffeine: No Dental Care, Regularly: Yes Physical Activity Frequency: Does not Exercise Seatbelt Use: always Sunscreen Use: No Assistive Devices: Walker Allergies Allergies Allergy/AdvReac Type Severity Reaction Status Date / Time bee venom protein (honey bee) Allergy Severe Swelling Verified 06/11/22 09:45 of Lip/Tongue/Throat Home Meds Home Medications Medication Instructions Recorded Confirmed vitamins A,C,Q-bsvm-azeomv 1 tab PO BID 12/28/18 06/11/22 [PreserVision AREDS] ferrous sulfate [Iron (ferrous 1 dose PO QAM 01/07/19 06/11/22 sulfate)] lancets 28 gauge (Lite Touch #25 ea 01/14/19 04/11/22 Lancets) anastrozole [Arimidex] See Rx Instructions PO .COMPLEX 02/29/20 06/11/22 acetaminophen 650 mg 650 mg PO Q6H PRN Pain 05/30/22 06/11/22 tablet,extended release calcium carbonate 1,000 2 tab PO DAILY PRN Acid Reflux 05/30/22 06/11/22 mg-magnesium hydroxide 200 mg chewable tablet (Antacid (calcium carb-magnesium hyd)) calcium carbonate 500 mg-vitamin 1 tab PO DAILY 05/30/22 06/11/22 D3 3.125 mcg (125 unit) tablet cranberry 500 mg capsule 500 mg PO DAILY 05/30/22 06/11/22 cyanocobalamin (vitamin B-12) 1,000 mcg IM MONTHLY 05/30/22 06/11/22 1,000 mcg/mL injection solution menthol 0.44 %-zinc oxide 20.6 % 1 applic topical DIRECTED PRN 05/30/22 06/11/22 topical ointment in packet Rash (Calmoseptine) Previous Rx's Medication Instructions Recorded sitagliptin phosphate 50 mg tablet 50 mg PO QAM #90 tabs 12/25/20 blood sugar diagnostic See Rx Instructions .Route 02/13/21 .COMPLEX #150 strips escitalopram oxalate 5 mg tablet 5 mg PO DAILY #90 tabs 03/07/21 (Lexapro) metoprolol tartrate 25 mg tablet 25 mg PO BID #180 tabs 07/11/21 metformin 750 mg tablet,extended 750 mg PO BID #180 tabs 07/26/21 release 24 hr simvastatin 40 mg tablet 40 mg PO QPM #90 tabs 08/13/21 furosemide 20 mg tablet 20 mg PO DAILY PRN edema #30 tabs 11/20/21 nitrofurantoin macrocrystal 100 mg 100 mg PO DAILY #90 caps 01/03/22 capsule Results & Data (ED) Vital Signs Vital Signs - 24 hr 06/21/22 06:51 06/21/22 08:50 06/21/22 11:46 Temperature 38.2 C H 38.8 C H 36.6 C Temperature Source Oral Rectal Oral Pulse Rate 84 Pulse Rate [Apical] Pulse Rate [Right Finger] 141 H Pulse Rhythm Regular Pulse Rhythm [Apical] Pulse Rhythm [Right Finger] Regular Pulse Strength Normal Pulse Strength [Right Finger] Normal Respiratory Rate 20 26 H Respiratory Effort / Characteristics Non-Labored Spontaneous Non-Labored Spontaneous Respiratory Depth Normal Shallow Respiratory Pattern Regular Regular Blood Pressure 137/56 L Blood Pressure [Right Arm] 93/50 L Blood Pressure Mean 83 Blood Pressure Mean [Right Arm] 64 Blood Pressure Position Sitting Blood Pressure Position [Right Arm] Sitting Pulse Oximetry 91 93 Oxygen Delivery Method Room Air Room Air Oxygen Flow Rate Sepsis Recent Fever Within 48 Hours Yes Sepsis New/Unexplained Change in Mental Status N/A Sepsis Action Taken by Nursing No Action Required 06/21/22 12:42 06/21/22 13:10 06/21/22 12:50 Temperature 36.5 C Temperature Source Temporal Artery Scan Pulse Rate Pulse Rate [Apical] 121 H 129 H 112 H Pulse Rate [Right Finger] Pulse Rhythm Pulse Rhythm [Apical] Irregular Irregular Irregular Pulse Rhythm [Right Finger] Pulse Strength Pulse Strength [Right Finger] Respiratory Rate 15 21 21 Respiratory Effort / Characteristics Non-Labored Non-Labored Non-Labored Respiratory Depth Normal Normal Normal Respiratory Pattern Blood Pressure Blood Pressure [Right Arm] 98/59 L 99/57 L 94/51 L Blood Pressure Mean Blood Pressure Mean [Right Arm] 72 71 65 Blood Pressure Position Blood Pressure Position [Right Arm] Pulse Oximetry 95 96 100 Oxygen Delivery Method Oxymask Nasal Cannula Oxymask Oxygen Flow Rate 14 2 14 Sepsis Recent Fever Within 48 Hours Sepsis New/Unexplained Change in Mental Status Sepsis Action Taken by Nursing 06/21/22 13:00 Temperature Temperature Source Pulse Rate Pulse Rate [Apical] 131 H Pulse Rate [Right Finger] Pulse Rhythm Pulse Rhythm [Apical] Irregular Pulse Rhythm [Right Finger] Pulse Strength Pulse Strength [Right Finger] Respiratory Rate 20 Respiratory Effort / Characteristics Non-Labored Respiratory Depth Normal Respiratory Pattern Blood Pressure Blood Pressure [Right Arm] 100/54 L Blood Pressure Mean Blood Pressure Mean [Right Arm] 69 Blood Pressure Position Blood Pressure Position [Right Arm] Pulse Oximetry 100 Oxygen Delivery Method Oxymask Oxygen Flow Rate 4 Sepsis Recent Fever Within 48 Hours Sepsis New/Unexplained Change in Mental Status Sepsis Action Taken by Longterm Medications Current Medication List: was personally reviewed by me Laboratory Data Attestation: I reviewed the patient's lab results. 06/21/22 06:45 06/21/22 06:45 Lab Results 06/21/22 06/21/22 06/21/22 Range/Units 06:45 06:45 06:45 WBC 5.15 (4.8-10.8) K/ul RBC 3.53 L (3.93-5.22) M/uL Hgb 10.7 L (12.0-16.0) g/dl Hct 33.7 L (34.1-44.9) % MCV 95.5 (80.0-100.0) fL MCH 30.3 (25.0-34.0) pg MCHC 31.8 L (32.0-36.0) g/dL RDW Std Deviation 49.4 H (36.4-46.3) fL RDW Coeff of [place] 14.3 (11.5-14.5) % Plt Count 176 (130-400) K/uL MPV 9.9 (9.4-12.3) fL Immature Gran % (Auto) 0.4 % Neut % (Auto) 89.9 % Lymph % (Auto) 6.2 % [place] % (Auto) 2.7 % Eos % (Auto) 0.6 % Baso % (Auto) 0.2 % Neut # (Auto) 4.63 (1.4-6.5) K/uL Lymph # (Auto) 0.32 L (1.2-3.4) K/uL [place] # (Auto) 0.14 L (0.24-0.82) K/uL Eos # (Auto) 0.03 (0-0.50) K/uL Baso # (Auto) 0.01 (0-0.2) K/uL Immature Gran # (Auto) 0.02 (0.00-0.02) K/uL PT 10.8 (9.0-12.0) Seconds INR 1.0 (0.9-1.1) APTT 22.1 (21.0-31.0) Seconds PTT Ratio 0.8 Sodium 141 (136-145) mmol/L Potassium 3.9 (3.5-5.1) mmol/L Chloride 101 (98-107) mmol/L Carbon Dioxide 31 (21-32) mmol/L Anion Gap 9 (3-11) BUN 16 (6-23) mg/dl Creatinine 0.61 (0.6-1.2) mg/dl Est Cr Clr Drug Dosing Not Reportable Est GFR ( Amer) 94.5 ml/min Est GFR (Non-Af Amer) 81.5 ml/min BUN/Creatinine Ratio 26.2 H (10-20) Glucose 157 H (70-99(Fasting)) mg/dl POC Glucose (70-99) mg/dl Lactate (0.4-2.0) mmol/L Calcium 9.9 (8.5-10.1) mg/dl Magnesium 1.5 L (1.7-2.4) mg/dl Total Bilirubin 1.3 H (0.2-1.0) mg/dl AST 1095 H (13-39) U/L ALT 462 H (7-52) U/L Alkaline Phosphatase 159 H (34-104) U/L Troponin I High Sens 7.3 (0-14) pg/ml Total Protein 7.1 (6.0-8.3) gm/dl Albumin 4.1 (3.4-5.0) gm/dl Globulin 3.0 (2.5-4.0) gm/dl Albumin/Globulin Ratio 1.4 (0.9-2) Lipase 67 (11-82) U/L TSH (0.300-4.500) uIu/ml Urine Color Urine Appearance (Clear) Urine pH (4.5-7.5) Ur Specific Rebecca (1.000-1.030) Urine Protein (Negative) Urine Glucose (UA) (Negative) Urine Ketones (Negative) Urine Blood (Negative) Urine Nitrite (Negative) Urine Bilirubin (Negative) Urine Urobilinogen (Negative) Ur Leukocyte Esterase (Negative) Urine WBC (Auto) (0-5) /hpf Urine RBC (Auto) (0-4) /hpf U Hyaline Cast (Auto) (0-5) /lpf U Epithel Cells (Auto) (0-5) /lpf Urine Bacteria (Auto) (Negative) SARS-CoV-2 (PCR) (Negative) Influenza Type A (PCR) (Neg) Influenza Type B (PCR) (Neg) RSV (RT-PCR) (Neg) Blood Type Antibody Screen 06/21/22 06/21/22 06/21/22 Range/Units 06:45 07:36 07:46 WBC (4.8-10.8) K/ul RBC (3.93-5.22) M/uL Hgb (12.0-16.0) g/dl Hct (34.1-44.9) % MCV (80.0-100.0) fL MCH (25.0-34.0) pg MCHC (32.0-36.0) g/dL RDW Std Deviation (36.4-46.3) fL RDW Coeff of [place] (11.5-14.5) % Plt Count (130-400) K/uL MPV (9.4-12.3) fL Immature Gran % (Auto) % Neut % (Auto) % Lymph % (Auto) % [place] % (Auto) % Eos % (Auto) % Baso % (Auto) % Neut # (Auto) (1.4-6.5) K/uL Lymph # (Auto) (1.2-3.4) K/uL [place] # (Auto) (0.24-0.82) K/uL Eos # (Auto) (0-0.50) K/uL Baso # (Auto) (0-0.2) K/uL Immature Gran # (Auto) (0.00-0.02) K/uL PT (9.0-12.0) Seconds INR (0.9-1.1) APTT (21.0-31.0) Seconds PTT Ratio Sodium (136-145) mmol/L Potassium (3.5-5.1) mmol/L Chloride (98-107) mmol/L Carbon Dioxide (21-32) mmol/L Anion Gap (3-11) BUN (6-23) mg/dl Creatinine (0.6-1.2) mg/dl Est Cr Clr Drug Dosing Est GFR ( Amer) ml/min Est GFR (Non-Af Amer) ml/min BUN/Creatinine Ratio (10-20) Glucose (70-99(Fasting)) mg/dl POC Glucose (70-99) mg/dl Lactate 2.7 H* (0.4-2.0) mmol/L Calcium (8.5-10.1) mg/dl Magnesium (1.7-2.4) mg/dl Total Bilirubin (0.2-1.0) mg/dl AST (13-39) U/L ALT (7-52) U/L Alkaline Phosphatase (34-104) U/L Troponin I High Sens (0-14) pg/ml Total Protein (6.0-8.3) gm/dl Albumin (3.4-5.0) gm/dl Globulin (2.5-4.0) gm/dl Albumin/Globulin Ratio (0.9-2) Lipase (11-82) U/L TSH 3.466 (0.300-4.500) uIu/ml Urine Color Urine Appearance (Clear) Urine pH (4.5-7.5) Ur Specific Rebecca (1.000-1.030) Urine Protein (Negative) Urine Glucose (UA) (Negative) Urine Ketones (Negative) Urine Blood (Negative) Urine Nitrite (Negative) Urine Bilirubin (Negative) Urine Urobilinogen (Negative) Ur Leukocyte Esterase (Negative) Urine WBC (Auto) (0-5) /hpf Urine RBC (Auto) (0-4) /hpf U Hyaline Cast (Auto) (0-5) /lpf U Epithel Cells (Auto) (0-5) /lpf Urine Bacteria (Auto) (Negative) SARS-CoV-2 (PCR) (Negative) Influenza Type A (PCR) (Neg) Influenza Type B (PCR) (Neg) RSV (RT-PCR) (Neg) Blood Type A Positive Antibody Screen NEGATIVE 06/21/22 06/21/22 06/21/22 Range/Units 08:45 08:45 10:35 WBC (4.8-10.8) K/ul RBC (3.93-5.22) M/uL Hgb (12.0-16.0) g/dl Hct (34.1-44.9) % MCV (80.0-100.0) fL MCH (25.0-34.0) pg MCHC (32.0-36.0) g/dL RDW Std Deviation (36.4-46.3) fL RDW Coeff of [place] (11.5-14.5) % Plt Count (130-400) K/uL MPV (9.4-12.3) fL Immature Gran % (Auto) % Neut % (Auto) % Lymph % (Auto) % [place] % (Auto) % Eos % (Auto) % Baso % (Auto) % Neut # (Auto) (1.4-6.5) K/uL Lymph # (Auto) (1.2-3.4) K/uL [place] # (Auto) (0.24-0.82) K/uL Eos # (Auto) (0-0.50) K/uL Baso # (Auto) (0-0.2) K/uL Immature Gran # (Auto) (0.00-0.02) K/uL PT (9.0-12.0) Seconds INR (0.9-1.1) APTT (21.0-31.0) Seconds PTT Ratio Sodium (136-145) mmol/L Potassium (3.5-5.1) mmol/L Chloride (98-107) mmol/L Carbon Dioxide (21-32) mmol/L Anion Gap (3-11) BUN (6-23) mg/dl Creatinine (0.6-1.2) mg/dl Est Cr Clr Drug Dosing Est GFR ( Amer) ml/min Est GFR (Non-Af Amer) ml/min BUN/Creatinine Ratio (10-20) Glucose (70-99(Fasting)) mg/dl POC Glucose (70-99) mg/dl Lactate 2.1 H* (0.4-2.0) mmol/L Calcium (8.5-10.1) mg/dl Magnesium (1.7-2.4) mg/dl Total Bilirubin (0.2-1.0) mg/dl AST (13-39) U/L ALT (7-52) U/L Alkaline Phosphatase (34-104) U/L Troponin I High Sens (0-14) pg/ml Total Protein (6.0-8.3) gm/dl Albumin (3.4-5.0) gm/dl Globulin (2.5-4.0) gm/dl Albumin/Globulin Ratio (0.9-2) Lipase (11-82) U/L TSH (0.300-4.500) uIu/ml Urine Color Yellow Urine Appearance Clear (Clear) Urine pH 8.5 H (4.5-7.5) Ur Specific [place] 1.024 (1.000-1.030) Urine Protein Trace H (Negative) Urine Glucose (UA) Negative (Negative) Urine Ketones Negative (Negative) Urine Blood Negative (Negative) Urine Nitrite Negative (Negative) Urine Bilirubin Negative (Negative) Urine Urobilinogen Negative (Negative) Ur Leukocyte Esterase Negative (Negative) Urine WBC (Auto) 1-5 (0-5) /hpf Urine RBC (Auto) 0-4 (0-4) /hpf U Hyaline Cast (Auto) 1-5 (0-5) /lpf U Epithel Cells (Auto) 5-10 H (0-5) /lpf Urine Bacteria (Auto) Negative (Negative) SARS-CoV-2 (PCR) NEGATIVE (Negative) Influenza Type A (PCR) Negative (Neg) Influenza Type B (PCR) Negative (Neg) RSV (RT-PCR) Negative (Neg) Blood Type Antibody Screen 06/21/22 Range/Units 11:57 WBC (4.8-10.8) K/ul RBC (3.93-5.22) M/uL Hgb (12.0-16.0) g/dl Hct (34.1-44.9) % MCV (80.0-100.0) fL MCH (25.0-34.0) pg MCHC (32.0-36.0) g/dL RDW Std Deviation (36.4-46.3) fL RDW Coeff of [place] (11.5-14.5) % Plt Count (130-400) K/uL MPV (9.4-12.3) fL Immature Gran % (Auto) % Neut % (Auto) % Lymph % (Auto) % [place] % (Auto) % Eos % (Auto) % Baso % (Auto) % Neut # (Auto) (1.4-6.5) K/uL Lymph # (Auto) (1.2-3.4) K/uL [place] # (Auto) (0.24-0.82) K/uL Eos # (Auto) (0-0.50) K/uL Baso # (Auto) (0-0.2) K/uL Immature Gran # (Auto) (0.00-0.02) K/uL PT (9.0-12.0) Seconds INR (0.9-1.1) APTT (21.0-31.0) Seconds PTT Ratio Sodium (136-145) mmol/L Potassium (3.5-5.1) mmol/L Chloride (98-107) mmol/L Carbon Dioxide (21-32) mmol/L Anion Gap (3-11) BUN (6-23) mg/dl Creatinine (0.6-1.2) mg/dl Est Cr Clr Drug Dosing Est GFR ( Amer) ml/min Est GFR (Non-Af Amer) ml/min BUN/Creatinine Ratio (10-20) Glucose (70-99(Fasting)) mg/dl POC Glucose 151 H (70-99) mg/dl Lactate (0.4-2.0) mmol/L Calcium (8.5-10.1) mg/dl Magnesium (1.7-2.4) mg/dl Total Bilirubin (0.2-1.0) mg/dl AST (13-39) U/L ALT (7-52) U/L Alkaline Phosphatase (34-104) U/L Troponin I High Sens (0-14) pg/ml Total Protein (6.0-8.3) gm/dl Albumin (3.4-5.0) gm/dl Globulin (2.5-4.0) gm/dl Albumin/Globulin Ratio (0.9-2) Lipase (11-82) U/L TSH (0.300-4.500) uIu/ml Urine Color Urine Appearance (Clear) Urine pH (4.5-7.5) Ur Specific [place] (1.000-1.030) Urine Protein (Negative) Urine Glucose (UA) (Negative) Urine Ketones (Negative) Urine Blood (Negative) Urine Nitrite (Negative) Urine Bilirubin (Negative) Urine Urobilinogen (Negative) Ur Leukocyte Esterase (Negative) Urine WBC (Auto) (0-5) /hpf Urine RBC (Auto) (0-4) /hpf U Hyaline Cast (Auto) (0-5) /lpf U Epithel Cells (Auto) (0-5) /lpf Urine Bacteria (Auto) (Negative) SARS-CoV-2 (PCR) (Negative) Influenza Type A (PCR) (Neg) Influenza Type B (PCR) (Neg) RSV (RT-PCR) (Neg) Blood Type Antibody Screen Administered Medications Diltiazem HCl 125 mg/ Dextrose 125 mls @ 5 mls/hr IV .Q24H ROSARIO; Protocol Stop: 07/21/22 08:59 Last Admin: 06/21/22 09:48 Dose: 5 mg/hr, 5 mls/hr Documented By: SHAHNAZ Co-signed By: PATTY Discontinued Medications Diltiazem HCl (Diltiazem Hcl 5 Mg/Ml 5 Ml Vial) 10 mg IV NOW STA Stop: 06/21/22 08:57 Last Admin: 06/21/22 09:48 Dose: Not Given Documented By: SHAHNAZ Sodium Chloride (Nss) 500 mls @ 999 mls/hr IV .Q31M STA Stop: 06/21/22 07:22 Last Admin: 06/21/22 08:19 Dose: 999 mls/hr Documented By: PATTY Acetaminophen (Ofirmev) 1,000 mg in 100 mls @ 400 mls/hr IV NOW STA Stop: 06/21/22 07:06 Last Infusion: 06/21/22 08:48 Dose: 0 mls/hr Documented By: Admin: 06/21/22 07:48 Dose: 400 mls/hr Documented By: SHAHNAZ Pantoprazole Sodium 80 mg/ (Dextrose) 100 mls @ 400 mls/hr IV ONE STA Stop: 06/21/22 07:10 Last Admin: 06/21/22 08:19 Dose: 400 mls/hr Documented By: PATTY Ceftriaxone Sodium (Rocephin) 2,000 mg in 70 mls @ 140 mls/hr IV NOW STA Stop: 06/21/22 07:29 Last Admin: 06/21/22 08:19 Dose: 140 mls/hr Documented By: PATTY Sodium Chloride (Nss 1000ml) 1,000 mls @ 999 mls/hr IV .Q1H1M ONE Stop: 06/21/22 09:19 Last Admin: 06/21/22 08:49 Dose: 999 mls/hr Documented By: SHAHNAZ Magnesium Sulfate/Dextrose (Magnesium Sulfate / D5w) 1 gm in 100 mls @ 100 mls/hr IV NOW STA Stop: 06/21/22 09:41 Last Admin: 06/21/22 11:32 Dose: 100 mls/hr Documented By: SHAHNAZ Piperacillin Sod/Tazobactam Sod (Zosyn) 4.5 gm in 120 mls @ 240 mls/hr IV NOW ONE Stop: 06/21/22 09:13 Last Admin: 06/21/22 09:58 Dose: 240 mls/hr Documented By: SHAHNAZ Ioversol (Optiray 350 100ml) 84 ml IV ONCE ONE Stop: 06/21/22 08:11 Last Admin: 06/21/22 08:07 Dose: 84 ml Documented By: VALDEMAR Imaging Data Radiologist's Impression: Abdomen/Pelvis CT 06/21/22 06:52 CT SCAN OF THE ABDOMEN AND PELVIS WITH IV CONTRAST CLINICAL HISTORY: GI bleeding. Vomiting. COMPARISON STUDY: Renal ultrasound dated 02/06/2022 TECHNIQUE: Following the IV administration of 84 cc of Optiray 350, CT scan of the abdomen and pelvis is performed from the lung bases to the proximal femora. Images are reviewed in the axial, sagittal, and coronal planes. IV contrast was administered without complication. A dose lowering technique was utilized adhering to the principles of ALARA. The examination is compromised by motion artifact. CT DOSE: 480.99 mGy.cm FINDINGS: Lung bases: The heart is enlarged and without pericardial effusion. The coronary arteries are densely calcified. The lung bases are clear noting bibasilar scarring/atelectasis. There is a small hiatal hernia. Liver: The contrast-enhanced liver is normal in size and heterogeneous in attenuation. There is mild nodularity of the hepatic surface contour. There is no intrahepatic biliary ductal dilatation. The hepatic veins and portal veins are patent. Gallbladder: The gallbladder is distended and contains numerous calcified gallstones. Several of these are located within the gallbladder neck. The gallbladder wall is mildly thickened and edematous. There is a prominent fold with possible adenomyomatosis in the fundal region. Spleen: Normal in size and attenuation. Pancreas: Unremarkable. Adrenal glands: A 1.0 cm low-attenuation left adrenal nodule likely represents an adenoma but cannot be definitively characterized due to the presence of IV contrast. The right adrenal gland is normal in appearance. Kidneys: The contrast enhanced kidneys demonstrate mild cortical atrophy and are without hydronephrosis. The kidneys enhance symmetrically. Bilateral renal cysts measure up to 2.5 cm. Abdominal vasculature: There is advanced atherosclerotic calcification and mild ectasia of the abdominal aorta. Bowel: There is mild colonic diverticulosis without CT evidence of acute d iverticulitis. No bowel obstruction is seen. A tiny duodenal diverticulum is incidentally noted. The appendix is not visualized. There is mild wall thickening suggested involving the left colon with faint surrounding infiltration. Peritoneum: There is no intraperitoneal free air or abdominal ascites. Lymphadenopathy: None. Pelvic viscera: The bladder is mildly distended but otherwise normal in appearance. The uterus is surgically absent. There is a 2.5 cm fat attenuation lesion containing calcifications involving the left ovary on axial image #363. Skeletal structures: The skeletal structures are osteopenic. No lytic or blastic lesions are seen. There is moderate to advanced cervical spondylosis. There are bilateral pars defects at L5 with advanced disc space narrowing and 10 mm of an terolisthesis of L5-S1. IMPRESSION: 1. Findings suggest a mild nonspecific colitis of the left colon. Clinical correlation will be required. 2. Gallstones within an abnormal appearing gallbladder as detailed above. Correlate with clinical and laboratory findings for evidence of acute cholecystitis. If warranted this could be further assessed with a right upper quadrant ultrasound. 3. The liver shows morphologic change of cirrhosis. 4. There is a 2.5 cm left ovarian dermoid. 5. Cardiomegaly. 6. Additional findings as above. ACT 112: Negative or not required by law. Electronically signed by: Kirby Oropeza M.D. 06/21/2022 8:40 AM Chest X-Ray 06/21/22 06:53 SINGLE VIEW CHEST CLINICAL HISTORY: Generalized abdominal pain FINDINGS: An AP, portable, upright chest radiograph is compared to study dated 01/11/2020. The heart is enlarged noting atherosclerotic calcification of the thoracic aorta. The pulmonary vasculature is noncongested. Chronic interstitial thickening similar to previous. There is bibasilar scarring/atelectasis. No airspace consolidation or large pleural effusion is identified. No pneumothorax is seen. The skeletal structures are osteopenic. There is chronic posttraumatic deformity of the right proximal humerus. IMPRESSION: Cardiomegaly with no active disease in the chest. ACT 112: Negative or not required by law. Electronically signed by: Kirby Oropeza M.D. 06/21/2022 7:41 AM Discharge Plan Visit Data Chief Complaint: Vomiting Stated Complaint: VOMITING/POSSIBLE UPPER GI BLEED ED Provider: Kirby Mcwilliams Discharge Problem: Acute cholecystitis, Hematemesis, Elevated liver enzymes, Fever, Atrial fibrillation with rapid ventricular response, Coagulopathy Patient Disposition: Admitted As Inpatient Condition: Fair Discharge Instructions Interventions: ED Discharge Assessment Last Done: 06/21/22 11:59 : Hematemesis Qualifiers: Nausea presence: unspecified Qualified Code(s): K92.0 - Hematemesis Fever Qualifiers: Fever type: unspecified Qualified Code(s): R50.9 - Fever, unspecified
[2022-06-21] MEDS ORDERED: cefTRIAXone SODIUM 2,000 MG/70 ML BAG IV STA (07:00)
[2022-06-21 07:05] LABS: Basophils # (auto) 0.01 K/uL (0-0.2); Basophils % (auto) 0.2 %; Eosinophils # (auto) 0.03 K/uL (0-0.50); Eosinophils % (auto) 0.6 %; Hematocrit (blood only) 33.7 % (34.1-44.9); Hemoglobin 10.7 g/dl (12.0-16.0); Immature Granulocytes # (auto) 0.02 K/uL (0.00-0.02); Immature Granulocytes % (auto) 0.4 %; Lymphocytes # (auto) 0.32 K/uL (1.2-3.4); Lymphocytes % (auto) 6.2 %; Mean Corpuscular Hemoglobin 30.3 pg (25.0-34.0); Mean Corpuscular Hgb Conc 31.8 g/dL (32.0-36.0); Mean Corpuscular Volume 95.5 fL (80.0-100.0); Mean Platelet Volume 9.9 fL (9.4-12.3); Monocytes # (auto) 0.14 K/uL (0.24-0.82); Monocytes % (auto) 2.7 %; Neutrophils # (auto) 4.63 K/uL (1.4-6.5); Neutrophils % (auto) 89.9 %; Platelet Count 176 K/uL (130-400); RDW Coefficient of Variation 14.3 % (11.5-14.5); RDW Standard Deviation 49.4 fL (36.4-46.3); Red Blood Count 3.53 M/uL (3.93-5.22); White Blood Count 5.15 K/ul (4.8-10.8)
[2022-06-21 07:28] LABS: Anion Gap 9 (3-11); BUN Creatinine Ratio 26.2 (10-20); Blood Urea Nitrogen 16 mg/dl (6-23); Calcium 9.9 mg/dl (8.5-10.1); Carbon Dioxide 31 mmol/L (21-32); Chloride 101 mmol/L (98-107); Est GFR (African American) 94.5 ml/min; Est GFR (Non-African American) 81.5 ml/min; Glucose 157 mg/dl (70-99(Fasting)); Potassium 3.9 mmol/L (3.5-5.1); Sodium 141 mmol/L (136-145)
[2022-06-21 07:29] LABS: Troponin I High Sensitivity 7.3 pg/ml (0-14)
--- NOTE | 2022-06-21 07:42 | XRay Report ---
SINGLE VIEW CHEST CLINICAL HISTORY: Generalized abdominal pain FINDINGS: An AP, portable, upright chest radiograph is compared to study dated 01/11/2020. The heart is enlarged noting atherosclerotic calcification of the thoracic aorta. The pulmonary vasculature is no ncongested. Chronic interstitial thickening similar to previous. There is bibasilar scarring/atelecta sis. No airspace consolidation or large pleural effusion is identified. No pneumothorax is seen. The skeletal structures are osteopenic. There is chronic posttraumatic deformity of the right proximal hu merus. IMPRESSION: Cardiomegaly with no active disease in the chest. ACT 112: Negative or not required by law. Electronically signed by: Kirby Oropeza M.D. 06/21/2022 7:41 AM
[2022-06-21 07:45] LABS: Partial Thromboplastin Ratio 0.8; Partial Thromboplastin Time 22.1 Seconds (21.0-31.0); Prothrombin Time 10.8 Seconds (9.0-12.0)
[2022-06-21 07:48] LABS: Alanine Aminotransferase 462 U/L (7-52); Albumin Globulin Ratio 1.4 (0.9-2); Albumin Level 4.1 gm/dl (3.4-5.0); Alkaline Phosphatase 159 U/L (34-104); Aspartate Aminotransferase 1095 U/L (13-39); Bilirubin,Total 1.3 mg/dl (0.2-1.0); Lipase 67 U/L (11-82); Magnesium 1.5 mg/dl (1.7-2.4); Total Protein 7.1 gm/dl (6.0-8.3)
[2022-06-21] MEDS ORDERED: OPTIRAY 350 100ml IV ONE (08:10)
[2022-06-21] MEDS ORDERED: SODIUM CHLORIDE 0.9% 1000ML 1,000 ML IV ONE (08:19)
--- NOTE | 2022-06-21 08:41 | CT Scan Report ---
CT SCAN OF THE ABDOMEN AND PELVIS WITH IV CONTRAST CLINICAL HISTORY: GI bleeding. Vomiting. COMPARISON STUDY: Renal ultrasound dated 02/06/2022 TECHNIQUE: Following the IV administration of 84 cc of Optiray 350, CT scan of the abdomen and pelvi s is performed from the lung bases to the proximal femora. Images are reviewed in the axial, sagittal , and coronal planes. IV contrast was administered without complication. A dose lowering technique wa s utilized adhering to the principles of ALARA. The examination is compromised by motion artifact. CT DOSE: 480.99 mGy.cm FINDINGS: Lung bases: The heart is enlarged and without pericardial effusion. The coronary arteries are densely calcified. The lung bases are clear noting bibasilar scarring/atelectasis. There is a small hiatal h ernia. Liver: The contrast-enhanced liver is normal in size and heterogeneous in attenuation. There is mild nodularity of the hepatic surface contour. There is no intrahepatic biliary ductal dilatation. The he patic veins and portal veins are patent. Gallbladder: The gallbladder is distended and contains numerous calcified gallstones. Several of thes e are located within the gallbladder neck. The gallbladder wall is mildly thickened and edematous. Th ere is a prominent fold with possible adenomyomatosis in the fundal region. Spleen: Normal in size and attenuation. Pancreas: Unremarkable. Adrenal glands: A 1.0 cm low-attenuation left adrenal nodule likely represents an adenoma but cannot be definitively characterized due to the presence of IV contrast. The right adrenal gland is normal i n appearance. Kidneys: The contrast enhanced kidneys demonstrate mild cortical atrophy and are without hydronephros is. The kidneys enhance symmetrically. Bilateral renal cysts measure up to 2.5 cm. Abdominal vasculature: There is advanced atherosclerotic calcification and mild ectasia of the abdomi nal aorta. Bowel: There is mild colonic diverticulosis without CT evidence of acute diverticulitis. No bowel obs truction is seen. A tiny duodenal diverticulum is incidentally noted. The appendix is not visualized . There is mild wall thickening suggested involving the left colon with faint surrounding infiltratio n. Peritoneum: There is no intraperitoneal free air or abdominal ascites. Lymphadenopathy: None. Pelvic viscera: The bladder is mildly distended but otherwise normal in appearance. The uterus is beth gically absent. There is a 2.5 cm fat attenuation lesion containing calcifications involving the left ovary on axial image #363. Skeletal structures: The skeletal structures are osteopenic. No lytic or blastic lesions are seen. Th ere is moderate to advanced cervical spondylosis. There are bilateral pars defects at L5 with advance d disc space narrowing and 10 mm of anterolisthesis of L5-S1. IMPRESSION: 1. Findings suggest a mild nonspecific colitis of the left colon. Clinical correlation will be requir ed. 2. Gallstones within an abnormal appearing gallbladder as detailed above. Correlate with clinical and laboratory findings for evidence of acute cholecystitis. If warranted this could be further assessed with a right upper quadrant ultrasound. 3. The liver shows morphologic change of cirrhosis. 4. There is a 2.5 cm left ovarian dermoid. 5. Cardiomegaly. 6. Additional findings as above. ACT 112: Negative or not required by law. Electronically signed by: Kirby Oropeza M.D. 06/21/2022 8:40 AM
[2022-06-21] MEDS ORDERED: MAGNESIUM SULFATE / D5W 1 GM/100 ML BAG IV STA (08:42)
[2022-06-21] MEDS ORDERED: PIPERACILLIN/TAZOBACTAM 4.5 GM/120 ML BAG IV ONE (08:44)
[2022-06-21] MEDS ORDERED: dilTIAZem HCl 5 MG/ML 5 ML VIAL IV STA (08:56)
[2022-06-21] MEDS ORDERED: STAT IV Infusion **Titration per Protocol STA ×2 (08:56→15:53)
[2022-06-21] MEDS ORDERED: dilTIAZem HCL 125 MG in DEXTROSE 5% 100 ML IV SCH (09:00)
[2022-06-21 09:09] LABS: Appearance Urine Clear (Clear); Bacteria Urine Automated Negative (Negative); Bilirubin Urine Negative (Negative); Blood Urine Negative (Negative); Color Urine Yellow; Glucose Urine UA Negative (Negative); Ketones Urine Negative (Negative); Leukocyte Esterase Urine Negative (Negative); Nitrite Urine Negative (Negative); RBC Urine Automated 0-4 /hpf (0-4); Specific Gravity Urine 1.024 (1.000-1.030); Urobilinogen Urine Negative (Negative); pH Urine 8.5 (4.5-7.5)
[2022-06-21 09:10] LABS: Protein Urine Trace (Negative)
--- NOTE | 2022-06-21 09:11 | Surgery Consultation ---
Date of Consultation June 21, 2022 Assessment & Plan (1) Abdominal pain: This is an 86y F poor historian from [facility] with a PMH of DM2, aflutter on eliquis, HLD who presents to the [facility] ED on 06/21/22 with complaints of abdominal pain associated with nausea/vomiting that started this AM. A CT a/p was performed that revealed a mild nonspecific colitis of the left colon, + gallstones within an abnormal appearing gallbladder, and a liver with morphologic change of cirrhosis. Labs in the ER show 5.1, Lactate 2.7, Cr 0.6, Tb: 1.3, AST: 1095, ALT: 462, AlkP: 155. Vitals show patient is tachycardic and febrile 38.8C. On examination patient's abdomen is soft, with non specific discomfort to palpation (reported some epigastric and L sided pain), was non tender in the RUQ on my exam. Appreciate hospitalist admit given multiple medical issues. Per ER may start dilt gtt for afib. Would hold eliquis for now for any impending procedures. Recommend GI consult for possible MRCP/ERCP given elevated liver enzymes. No plans for acute surgical intervention today. Will await further recommendations from GI and follow along her clinical course closely. (2) Elevated transaminase level: Supervising Physician Co-Signing Physician Notes Dr. Maganapatient presenting the emergency room with nausea vomiting and dehydration. She has elevated liver function studies on her labs with a normal white count. Her CT does show a distended gallbladder somewhat edematous with gallstones and stones near the neck of the gallbladder. She does have a history of atrial flutter and is on Eliquis currently held and being treated with IV medication. She is awake in her ER bed and responsive . She does have dry mucous membranes and appears to be dehydrated Her daughter Brenda is at the bedside Patient with evidence of acute inflammation of the gallbladder and my concern may be common duct obstruction with her elevated transaminases For nowhold Eliquis, IV medication for arrhythmia, IV fluids and antibiotics- likely a good idea to have GI see the patient for possible ERCP/MRCP I suspect she will require laparoscopic cholecystectomy at some point although likely not today secondary to her Eliquis I have also discussed this with the patient's granddaughter who is the nurse manager labor delivery of the endoscopic suite-Ali History of Present Illness History of Present Illness This is an 86y F poor historian from [facility] with a PMH of DM2, aflutter on eliquis, HLD who presents to the [facility] ED on 06/21/22 with complaints of abdominal pain associated with nausea/vomiting that started this AM. The home called patient's daughter to make her aware and she was brought into the ER for further evaluation. A CT a/p was performed that revealed a mild nonspecific colitis of the left colon, + gallstones within an abnormal appearing gallbladder, and a liver with morphologic change of cirrhosis. Patient denies any chest pain/SOB, change in bowel habits, or chills. Per usp it sounds like her emesis this AM was dark/gritty in nauture. Ate some chocolate yesterday, but otherwise nothing out of the ordinary. Past surgical history includes hysterectomy, appendectomy, bilateral mastectomy, and recent squamous cell excision. No alcohol or drug history. Allergies Allergy/AdvReac Type Severity Reaction Status Date / Time bee venom protein (honey bee) Allergy Severe Swelling Verified 06/11/22 09:45 of Lip/Tongue/Throat Home Medications Medication Instructions Recorded Confirmed Type vitamins A,C,W-[id number] 1 tab PO BID 12/28/18 06/11/22 History [PreserVision AREDS] ferrous sulfate [Iron (ferrous 1 dose PO QAM 01/07/19 06/11/22 History sulfate)] lancets 28 gauge (Lite Touch #25 ea 01/14/19 04/11/22 History Lancets) anastrozole [Arimidex] See Rx Instructions PO .COMPLEX 02/29/20 06/11/22 History sitagliptin phosphate 50 mg tablet 50 mg PO QAM #90 tabs 12/25/20 06/11/22 Rx blood sugar diagnostic See Rx Instructions .Route 02/13/21 06/11/22 Rx .COMPLEX #150 strips escitalopram oxalate 5 mg tablet 5 mg PO DAILY #90 tabs 03/07/21 06/11/22 Rx (Lexapro) metoprolol tartrate 25 mg tablet 25 mg PO BID #180 tabs 07/11/21 06/11/22 Rx metformin 750 mg tablet,extended 750 mg PO BID #180 tabs 07/26/21 06/11/22 Rx release 24 hr simvastatin 40 mg tablet 40 mg PO QPM #90 tabs 08/13/21 06/11/22 Rx furosemide 20 mg tablet 20 mg PO DAILY PRN edema #30 tabs 11/20/21 06/11/22 Rx nitrofurantoin macrocrystal 100 mg 100 mg PO DAILY #90 caps 01/03/22 06/11/22 Rx capsule acetaminophen 650 mg 650 mg PO Q6H PRN Pain 05/30/22 06/11/22 History tablet,extended release calcium carbonate 1,000 2 tab PO DAILY PRN Acid Reflux 05/30/22 06/11/22 History mg-magnesium hydroxide 200 mg chewable tablet (Antacid (calcium carb-magnesium hyd)) calcium carbonate 500 mg-vitamin 1 tab PO DAILY 05/30/22 06/11/22 History D3 3.125 mcg (125 unit) tablet cranberry 500 mg capsule 500 mg PO DAILY 05/30/22 06/11/22 History cyanocobalamin (vitamin B-12) 1,000 mcg IM MONTHLY 05/30/22 06/11/22 History 1,000 mcg/mL injection solution menthol 0.44 %-zinc oxide 20.6 % 1 applic topical DIRECTED PRN 05/30/22 06/11/22 History topical ointment in packet Rash (Calmoseptine) Patient History Medical History Anemia chronic, baseline hgb 10-11 range per chart review Atypical ductal hyperplasia of left breast Bilateral breast cancer DM type 2 (diabetes mellitus, type 2) NIDDM [place] (hard of hearing) Hyperlipidemia [facility], in [facility] [place] Osteoarthritis Paroxysmal atrial flutter Recurrent UTI Rosacea Squamous cell carcinoma in situ Vertigo occasional Surgical History History of appendectomy History of bilateral mastectomy History of breast biopsy History of cataract surgery History of hysterectomy History of surgery (06/11/22) Wide Local Excision Left Upper Extremity Squamous Cell Carcinoma(Left) - Santiago Gong, Hx of bilateral mastectomy Family History Sister Cancer Other No family history of adverse response to anesthesia Denies family history of Ovarian cancer Prostate cancer Myocardial infarction Breast cancer Lung cancer Colorectal cancer Social History Smoking Status: Unknown if ever smoked Second Hand Exposure: No; Preferred Language: Afghan Communication Ability: Effective Visual Impairment: No Limitations Civil Design Specialist Required: No Beliefs That Will Affect Care: None marital status: / Current Living Situation: Personal Care Facility Current Living Situation Comment: [facility] current occupational status: retired How many Children do You have: 2 Feels Safe at Home: Yes Childhood Exposure to Second-Hand Smoke: Yes caffeine: No Dental Care, Regularly: Yes Physical Activity Frequency: Does not Exercise Seatbelt Use: always Sunscreen Use: No Assistive Devices: Walker Review of Systems Constitutional: + fever and + anorexia; no chills Respiratory: no cough and no dyspnea Cardiovascular: no chest pain Gastrointestinal: + abdominal pain (non specific), + nausea, + vomiting and + coffee ground emesis; no change in bowel habits Physical Exam Physical Exam: awake, appears in no distress Respiratory: normal respiratory effort Cardiovascular: Rate/Rhythm: + tachycardic Gastrointestinal (Abdomen): Inspection/Auscultation: + abdomen distended (mild) Percussion/Palpation: + abdomen tender (discomfort across left side of abdomen and epigastric regions) and abdomen soft Results & Data ([facility]) Vital Signs (Past 12 Hours) Vital Signs Temp Pulse Resp BP Pulse Ox O2 Del Method 06/21/22 08:50 38.8 C H 06/21/22 06:51 38.2 C H 84 20 137/56 L 91 Room Air Diagnostic Findings CT SCAN OF THE ABDOMEN AND PELVIS WITH IV CONTRAST CLINICAL HISTORY: GI bleeding. Vomiting. COMPARISON STUDY: Renal ultrasound dated 02/06/2022 TECHNIQUE: Following the IV administration of 84 cc of Optiray 350, CT scan of the abdomen and pelvis is performed from the lung bases to the proximal femora. Images are reviewed in the axial, sagittal, and coronal planes. IV contrast was administered without complication. A dose lowering technique was utilized adhering to the principles of ALARA. The examination is compromised by motion artifact. CT DOSE: 480.99 mGy.cm FINDINGS: Lung bases: The heart is enlarged and without pericardial effusion. The coronary arteries are densely calcified. The lung bases are clear noting bibasilar scarring/atelectasis. There is a small hiatal hernia. Liver: The contrast-enhanced liver is normal in size and heterogeneous in attenuation. There is mild nodularity of the hepatic surface contour. There is no intrahepatic biliary ductal dilatation. The hepatic veins and portal veins are patent. Gallbladder: The gallbladder is distended and contains numerous calcified gallstones. Several of these are located within the gallbladder neck. The gallbladder wall is mildly thickened and edematous. There is a prominent fold with possible adenomyomatosis in the fundal region. Spleen: Normal in size and attenuation. Pancreas: Unremarkable. Adrenal glands: A 1.0 cm low-attenuation left adrenal nodule likely represents an adenoma but cannot be definitively characterized due to the presence of IV contrast. The right adrenal gland is normal in appearance. Kidneys: The contrast enhanced kidneys demonstrate mild cortical atrophy and are without hydronephrosis. The kidneys enhance symmetrically. Bilateral renal cysts measure up to 2.5 cm. Abdominal vasculature: There is advanced atherosclerotic calcification and mild ectasia of the abdominal aorta. Bowel: There is mild colonic diverticulosis without CT evidence of acute diverticulitis. No bowel obstruction is seen. A tiny duodenal diverticulum is incidentally noted. The appendix is not visualized. There is mild wall thickening suggested involving the left colon with faint surrounding infiltration. Peritoneum: There is no intraperitoneal free air or abdominal ascites. Lymphadenopathy: None. Pelvic viscera: The bladder is mildly distended but otherwise normal in appearance. The uterus is surgically absent. There is a 2.5 cm fat attenuation lesion containing calcifications involving the left ovary on axial image #363. Skeletal structures: The skeletal structures are osteopenic. No lytic or blastic lesions are seen. There is moderate to advanced cervical spondylosis. There are bilateral pars defects at L5 with advanced disc space narrowing and 10 mm of anterolisthesis of L5-S1. IMPRESSION: 1. Findings suggest a mild nonspecific colitis of the left colon. Clinical correlation will be required. 2. Gallstones within an abnormal appearing gallbladder as detailed above. Correlate with clinical and laboratory findings for evidence of acute cholecystitis. If warranted this could be further assessed with a right upper quadrant ultrasound. 3. The liver shows morphologic change of cirrhosis. 4. There is a 2.5 cm left ovarian dermoid. 5. Cardiomegaly. 6. Additional findings as above. ACT 112: Negative or not required by law. PG Care Time/CCT Total # of Minutes Spent Total Time Spent with Patient: Total time spent is greater than 50% in coordination of care (as documented) at patient's floor/unit and/or counseling patient: Coding Level of Care Code 94238 INT INP/OBS CARE 140MIN Diagnoses Abdominal pain R10.9 Elevated transaminase level R74.01
[2022-06-21 09:41] LABS: Influenza A virus by PCR Negative (Neg); Influenza B virus by PCR Negative (Neg); RSV by PCR Negative (Neg); SARS CoV2 RNA(COVID-19) Ceph NEGATIVE (Negative)
--- NOTE | 2022-06-21 10:48 | Gastrointestinal Consultation ---
Date of Consultation June 21, 2022 Assessment & Plan (1) Elevated liver enzymes: 86 year old female with history of afib, DM, dyslipidemia, Vit-D deficiency, breast CA, recurrent UTI presenting with pain, nausea/vomiting and report of coffee ground emesis prior to arrival. She is febrile, elevated transaminases with CT imaging concerning for cirrhosis, gallstones and question of cholecystitis. DDX with family: CBD stone, esophagitis, PUD, MWT, cholangitis etc Strict NPO Plan for EGD/EUS/ERCP today given clinical concern for cholangitis. Risks discussed including bleeding, infection, perforation, inability to cannulate, pancreatitis Hold AC Trend H&H Monitor GI output Transfuse PRN per primary team IV PPI bolus and drip Appreciate general surgery consultation Agree with IV ABX Thank you for allowing us to participate in the care of this patient. Please call with any acute changes, questions or concerns. Please see addendum below with additional recommendation from my supervising physician. (2) Fever: (3) Acute cholecystitis: Supervising Physician Co-Signing Physician Notes I saw and evaluated patient. She presented with discomfort and was found to have evidence of cholelithiasis on CT scan. The patient has a significant elevation of her liver enzymes and appears to have clinical evidence of sepsis. Based on the presentation we wonder about underlying cholangitis. Physical examination elderly appearing female, moderate distress noted Right upper quadrant tenderness noted Impression: Patient presenting with signs and symptoms most consistent with cholangitis. Given the presentation I think it would be prudent to proceed with urgent ERCP for biliary decompression. I discussed risks and benefits of the procedure with the patient's daughter to include bleeding infection perforation failed biliary cannulation and need for follow-up studies. History of Present Illness Reason for Consultation: hematemesis, gallstones, elevated LFTs Requesting Physician: hCino Attending Physician: Chino History of Present Illness 86 year old female with history of afib, DM, dyslipidemia, Vit-D deficiency, breast CA, recurrent UTI and others below admitted through the ED for evacuation of coffee ground emesis. GI was asked to evaluate for elevated, LFTs, gallstones and coffee ground emesis. Pt was seen and evaluated, chart reviewed. Daughter and granddaughter at bedside to aid in history. Notes that she was referred to the ED from her facility for evaluation of coffee ground emesis. She is a poor historian this AM. Denies abd pain. Does have some nausea, feels tired. In the ED, she is tachycardic and febrile, WBC 5, lacitc acid 2.7 PLT 176 INR 1. Tbili 1.3, AST 1095, ALT 462, ALKP 159, lipase 67. Her HGB remains close to baseline at 10.7 w/o BUN elevation. CT questions nodularity to liver, sigmoid colitis and gallstones w/ concern for acute cholecystitis. She is anticoagulated on eliquis. Last dose thought to be yesterday. CTAP 2022: Findings suggest a mild nonspecific colitis of the left colon. Clinical correlation will be required. Gallstones within an abnormal appearing gallbladder as detailed above. Correlate with clinical and laboratory findings for evidence of acute cholecystitis. If warranted this could be further assessed with a right upper quadrant ultrasound. liver shows morphologic change of cirrhosis. There is a 2.5 cm left ovarian dermoid. Cardiomegaly. Allergies Allergy/AdvReac Type Severity Reaction Status Date / Time bee venom protein (honey bee) Allergy Severe Swelling Verified 06/11/22 09:45 of Lip/Tongue/Throat Home Medications Medication Instructions Recorded Confirmed Type vitamins A,C,W-ymuj-kvgrjb 1 tab PO BID 12/28/18 06/11/22 History [PreserVision AREDS] ferrous sulfate [Iron (ferrous 1 dose PO QAM 01/07/19 06/11/22 History sulfate)] lancets 28 gauge (Lite Touch #25 ea 01/14/19 04/11/22 History Lancets) anastrozole [Arimidex] See Rx Instructions PO .COMPLEX 02/29/20 06/11/22 History sitagliptin phosphate 50 mg tablet 50 mg PO QAM #90 tabs 12/25/20 06/11/22 Rx blood sugar diagnostic See Rx Instructions .Route 02/13/21 06/11/22 Rx .COMPLEX #150 strips escitalopram oxalate 5 mg tablet 5 mg PO DAILY #90 tabs 03/07/21 06/11/22 Rx (Lexapro) metoprolol tartrate 25 mg tablet 25 mg PO BID #180 tabs 07/11/21 06/11/22 Rx metformin 750 mg tablet,extended 750 mg PO BID #180 tabs 07/26/21 06/11/22 Rx release 24 hr simvastatin 40 mg tablet 40 mg PO QPM #90 tabs 08/13/21 06/11/22 Rx furosemide 20 mg tablet 20 mg PO DAILY PRN edema #30 tabs 11/20/21 06/11/22 Rx nitrofurantoin macrocrystal 100 mg 100 mg PO DAILY #90 caps 01/03/22 06/11/22 Rx capsule acetaminophen 650 mg 650 mg PO Q6H PRN Pain 05/30/22 06/11/22 History tablet,extended release calcium carbonate 1,000 2 tab PO DAILY PRN Acid Reflux 05/30/22 06/11/22 History mg-magnesium hydroxide 200 mg chewable tablet (Antacid (calcium carb-magnesium hyd)) calcium carbonate 500 mg-vitamin 1 tab PO DAILY 05/30/22 06/11/22 History D3 3.125 mcg (125 unit) tablet cranberry 500 mg capsule 500 mg PO DAILY 05/30/22 06/11/22 History cyanocobalamin (vitamin B-12) 1,000 mcg IM MONTHLY 05/30/22 06/11/22 History 1,000 mcg/mL injection solution menthol 0.44 %-zinc oxide 20.6 % 1 applic topical DIRECTED PRN 05/30/22 06/11/22 History topical ointment in packet Rash (Calmoseptine) Patient History Medical History Anemia chronic, baseline hgb 10-11 range per chart review Atypical ductal hyperplasia of left breast Bilateral breast cancer DM type 2 (diabetes mellitus, type 2) NIDDM [place] (hard of hearing) Hyperlipidemia residential resident [facility] resident, in [place] Osteoarthritis Paroxysmal atrial flutter Recurrent UTI Rosacea Squamous cell carcinoma in situ Vertigo occasional Surgical History History of appendectomy History of bilateral mastectomy History of breast biopsy History of cataract surgery History of hysterectomy History of surgery (06/11/22) Wide Local Excision Left Upper Extremity Squamous Cell Carcinoma(Left) - Santiago Gong, Hx of bilateral mastectomy Family History Sister Cancer Other No family history of adverse response to anesthesia Denies family history of Ovarian cancer Prostate cancer Myocardial infarction Breast cancer Lung cancer Colorectal cancer Social History Smoking Status: Unknown if ever smoked Second Hand Exposure: No; Preferred Language: Cook Islander Communication Ability: Effective Visual Impairment: No Limitations Chaser Helper Required: No Beliefs That Will Affect Care: None marital status: / Current Living Situation: Personal Care Facility Current Living Situation Comment: [facility] current occupational status: retired How many Children do You have: 2 Feels Safe at Home: Yes Childhood Exposure to Second-Hand Smoke: Yes caffeine: No Dental Care, Regularly: Yes Physical Activity Frequency: Does not Exercise Seatbelt Use: always Sunscreen Use: No Assistive Devices: Walker Review of Systems Review of Systems: All systems reviewed & are unremarkable except as noted in HPI & below Physical Exam Constitutional: Elderly appearing female, acutely ill but in no distress. Family is at bedside. Eyes: PERRL Respiratory: normal respiratory effort; no respiratory distress and no labored breathing Cardiovascular: Rate/Rhythm: + tachycardic Gastrointestinal (Abdomen): Inspection/Auscultation: abdomen normal to inspection; abdomen not distended Percussion/Palpation: + abdomen tender and abdomen soft; no guarding, abdomen not rigid, no abdominal mass and no ascites Skin: no rashes, warm and dry Psychiatric: A+Ox3, euthymic affect Results & Data ([facility]) Vital Signs (Past 12 Hours) Vital Signs Temp Pulse Resp BP Pulse Ox O2 Del Method 06/21/22 08:50 38.8 C H 06/21/22 06:51 38.2 C H 84 20 137/56 L 91 Room Air Laboratory Results 06/21/22 06/21/22 06/21/22 Range/Units 08:45 08:45 07:46 WBC (4.8-10.8) K/ul RBC (3.93-5.22) M/uL Hgb (12.0-16.0) g/dl Hct (34.1-44.9) % MCV (80.0-100.0) fL MCH (25.0-34.0) pg MCHC (32.0-36.0) g/dL RDW Std Deviation (36.4-46.3) fL RDW Coeff of [place] (11.5-14.5) % Plt Count (130-400) K/uL MPV (9.4-12.3) fL Immature Gran % (Auto) % Neut % (Auto) % Lymph % (Auto) % [place] % (Auto) % Eos % (Auto) % Baso % (Auto) % Neut # (Auto) (1.4-6.5) K/uL Lymph # (Auto) (1.2-3.4) K/uL [place] # (Auto) (0.24-0.82) K/uL Eos # (Auto) (0-0.50) K/uL Baso # (Auto) (0-0.2) K/uL Immature Gran # (Auto) (0.00-0.02) K/uL PT (9.0-12.0) Seconds INR (0.9-1.1) APTT (21.0-31.0) Seconds PTT Ratio Sodium (136-145) mmol/L Potassium (3.5-5.1) mmol/L Chloride (98-107) mmol/L Carbon Dioxide (21-32) mmol/L Anion Gap (3-11) BUN (6-23) mg/dl Creatinine (0.6-1.2) mg/dl Est Cr Clr Drug Dosing Est GFR ( Amer) ml/min Est GFR (Non-Af Amer) ml/min BUN/Creatinine Ratio (10-20) Glucose (70-99(Fasting)) mg/dl Lactate 2.7 H* (0.4-2.0) mmol/L Calcium (8.5-10.1) mg/dl Magnesium (1.7-2.4) mg/dl Total Bilirubin (0.2-1.0) mg/dl AST (13-39) U/L ALT (7-52) U/L Alkaline Phosphatase (34-104) U/L Troponin I High Sens (0-14) pg/ml Total Protein (6.0-8.3) gm/dl Albumin (3.4-5.0) gm/dl Globulin (2.5-4.0) gm/dl Albumin/Globulin Ratio (0.9-2) Lipase (11-82) U/L TSH (0.300-4.500) uIu/ml Urine Color Yellow Urine Appearance Clear (Clear) Urine pH 8.5 H (4.5-7.5) Ur Specific [place] 1.024 (1.000-1.030) Urine Protein Trace H (Negative) Urine Glucose (UA) Negative (Negative) Urine Ketones Negative (Negative) Urine Blood Negative (Negative) Urine Nitrite Negative (Negative) Urine Bilirubin Negative (Negative) Urine Urobilinogen Negative (Negative) Ur Leukocyte Esterase Negative (Negative) Urine WBC (Auto) 1-5 (0-5) /hpf Urine RBC (Auto) 0-4 (0-4) /hpf U Hyaline Cast (Auto) 1-5 (0-5) /lpf U Epithel Cells (Auto) 5-10 H (0-5) /lpf Urine Bacteria (Auto) Negative (Negative) SARS-CoV-2 (PCR) NEGATIVE (Negative) Influenza Type A (PCR) Negative (Neg) Influenza Type B (PCR) Negative (Neg) RSV (RT-PCR) Negative (Neg) Blood Type Antibody Screen 06/21/22 06/21/22 06/21/22 Range/Units 07:36 06:45 06:45 WBC (4.8-10.8) K/ul RBC (3.93-5.22) M/uL Hgb (12.0-16.0) g/dl Hct (34.1-44.9) % MCV (80.0-100.0) fL MCH (25.0-34.0) pg MCHC (32.0-36.0) g/dL RDW Std Deviation (36.4-46.3) fL RDW Coeff of [place] (11.5-14.5) % Plt Count (130-400) K/uL MPV (9.4-12.3) fL Immature Gran % (Auto) % Neut % (Auto) % Lymph % (Auto) % [place] % (Auto) % Eos % (Auto) % Baso % (Auto) % Neut # (Auto) (1.4-6.5) K/uL Lymph # (Auto) (1.2-3.4) K/uL [place] # (Auto) (0.24-0.82) K/uL Eos # (Auto) (0-0.50) K/uL Baso # (Auto) (0-0.2) K/uL Immature Gran # (Auto) (0.00-0.02) K/uL PT (9.0-12.0) Seconds INR (0.9-1.1) APTT (21.0-31.0) Seconds PTT Ratio Sodium 141 (136-145) mmol/L Potassium 3.9 (3.5-5.1) mmol/L Chloride 101 (98-107) mmol/L Carbon Dioxide 31 (21-32) mmol/L Anion Gap 9 (3-11) BUN 16 (6-23) mg/dl Creatinine 0.61 (0.6-1.2) mg/dl Est Cr Clr Drug Dosing Not Reportable Est GFR ( Amer) 94.5 ml/min Est GFR (Non-Af Amer) 81.5 ml/min BUN/Creatinine Ratio 26.2 H (10-20) Glucose 157 H (70-99(Fasting)) mg/dl Lactate (0.4-2.0) mmol/L Calcium 9.9 (8.5-10.1) mg/dl Magnesium 1.5 L (1.7-2.4) mg/dl Total Bilirubin 1.3 H (0.2-1.0) mg/dl AST 1095 H (13-39) U/L ALT 462 H (7-52) U/L Alkaline Phosphatase 159 H (34-104) U/L Troponin I High Sens 7.3 (0-14) pg/ml Total Protein 7.1 (6.0-8.3) gm/dl Albumin 4.1 (3.4-5.0) gm/dl Globulin 3.0 (2.5-4.0) gm/dl Albumin/Globulin Ratio 1.4 (0.9-2) Lipase 67 (11-82) U/L TSH 3.466 (0.300-4.500) uIu/ml Urine Color Urine Appearance (Clear) Urine pH (4.5-7.5) Ur Specific [place] (1.000-1.030) Urine Protein (Negative) Urine Glucose (UA) (Negative) Urine Ketones (Negative) Urine Blood (Negative) Urine Nitrite (Negative) Urine Bilirubin (Negative) Urine Urobilinogen (Negative) Ur Leukocyte Esterase (Negative) Urine WBC (Auto) (0-5) /hpf Urine RBC (Auto) (0-4) /hpf U Hyaline Cast (Auto) (0-5) /lpf U Epithel Cells (Auto) (0-5) /lpf Urine Bacteria (Auto) (Negative) SARS-CoV-2 (PCR) (Negative) Influenza Type A (PCR) (Neg) Influenza Type B (PCR) (Neg) RSV (RT-PCR) (Neg) Blood Type A Positive Antibody Screen NEGATIVE 06/21/22 06/21/22 Range/Units 06:45 06:45 WBC 5.15 (4.8-10.8) K/ul RBC 3.53 L (3.93-5.22) M/uL Hgb 10.7 L (12.0-16.0) g/dl Hct 33.7 L (34.1-44.9) % MCV 95.5 (80.0-100.0) fL MCH 30.3 (25.0-34.0) pg MCHC 31.8 L (32.0-36.0) g/dL RDW Std Deviation 49.4 H (36.4-46.3) fL RDW Coeff of [place] 14.3 (11.5-14.5) % Plt Count 176 (130-400) K/uL MPV 9.9 (9.4-12.3) fL Immature Gran % (Auto) 0.4 % Neut % (Auto) 89.9 % Lymph % (Auto) 6.2 % [place] % (Auto) 2.7 % Eos % (Auto) 0.6 % Baso % (Auto) 0.2 % Neut # (Auto) 4.63 (1.4-6.5) K/uL Lymph # (Auto) 0.32 L (1.2-3.4) K/uL [place] # (Auto) 0.14 L (0.24-0.82) K/uL Eos # (Auto) 0.03 (0-0.50) K/uL Baso # (Auto) 0.01 (0-0.2) K/uL Immature Gran # (Auto) 0.02 (0.00-0.02) K/uL PT 10.8 (9.0-12.0) Seconds INR 1.0 (0.9-1.1) APTT 22.1 (21.0-31.0) Seconds PTT Ratio 0.8 Sodium (136-145) mmol/L Potassium (3.5-5.1) mmol/L Chloride (98-107) mmol/L Carbon Dioxide (21-32) mmol/L Anion Gap (3-11) BUN (6-23) mg/dl Creatinine (0.6-1.2) mg/dl Est Cr Clr Drug Dosing Est GFR ( Amer) ml/min Est GFR (Non-Af Amer) ml/min BUN/Creatinine Ratio (10-20) Glucose (70-99(Fasting)) mg/dl Lactate (0.4-2.0) mmol/L Calcium (8.5-10.1) mg/dl Magnesium (1.7-2.4) mg/dl Total Bilirubin (0.2-1.0) mg/dl AST (13-39) U/L ALT (7-52) U/L Alkaline Phosphatase (34-104) U/L Troponin I High Sens (0-14) pg/ml Total Protein (6.0-8.3) gm/dl Albumin (3.4-5.0) gm/dl Globulin (2.5-4.0) gm/dl Albumin/Globulin Ratio (0.9-2) Lipase (11-82) U/L TSH (0.300-4.500) uIu/ml Urine Color Urine Appearance (Clear) Urine pH (4.5-7.5) Ur Specific [place] (1.000-1.030) Urine Protein (Negative) Urine Glucose (UA) (Negative) Urine Ketones (Negative) Urine Blood (Negative) Urine Nitrite (Negative) Urine Bilirubin (Negative) Urine Urobilinogen (Negative) Ur Leukocyte Esterase (Negative) Urine WBC (Auto) (0-5) /hpf Urine RBC (Auto) (0-4) /hpf U Hyaline Cast (Auto) (0-5) /lpf U Epithel Cells (Auto) (0-5) /lpf Urine Bacteria (Auto) (Negative) SARS-CoV-2 (PCR) (Negative) Influenza Type A (PCR) (Neg) Influenza Type B (PCR) (Neg) RSV (RT-PCR) (Neg) Blood Type Antibody Screen (1) Fever Fever type: unspecified Qualified Code(s): R50.9 - Fever, unspecified
[2022-06-21] MEDS ORDERED: PANTOPRAZOLE BOLUS/DRIP 1 EACH IV STA (10:50)
[2022-06-21] MEDS ORDERED: PANTOprazole 80 MG in DEXTROSE 5% 100 ML IV ONE (10:55)
[2022-06-21] MEDS ORDERED: PANTOprazole 40 MG in DEXTROSE 5% 100 ML IV SCH (11:15)
[2022-06-21] MEDS ORDERED: DEXAMETHASONE SOD INJ 4 MG/ML VIAL ONE (11:32)
[2022-06-21] MEDS ORDERED: SUCCINYLCHOLINE CHLORIDE 20 MG/ML 10 ML VIAL IV ONE (11:32)
[2022-06-21] MEDS ORDERED: PROPOFOL IV EMULSION 10 MG/ML 20 ML VIAL IV ONE (11:32)
[2022-06-21] MEDS ORDERED: fentaNYL citrate 100 MCG/2 ML VIAL ONE ×2 (11:32→14:33)
--- NOTE | 2022-06-21 11:34 | Anesthesiology Consultation ---
Date of Service June 21, 2022 Assessment & Plan Chart Review Chart Review: Acceptable Risk for Surgery and Patient NOT seen in Pre Admission Testing Consults Requested none ASA [id number] Proposed Anesthesia Anesthesia Type: General History Surgery Operation Date: 06/21/22 08:35 Proposed Procedures p Endoscopic Retrograde Cholangiopancreatogram - Zoltan Andino DO s Endoscopic Ultrasonography Upper - Zoltan Andino DO Height/Weight Weight: 73.1 kg Allergies Allergy/AdvReac Type Severity Reaction Status Date / Time bee venom protein (honey bee) Allergy Severe Swelling Verified 06/11/22 09:45 of Lip/Tongue/Throat Medications Home Medications Medication Instructions Recorded Confirmed Last Taken vitamins A,C,Q-eadj-kchzvx 1 tab PO BID 12/28/18 06/11/22 06/10/22 16:00 [PreserVision AREDS] ferrous sulfate [Iron (ferrous 1 dose PO QAM 01/07/19 06/11/22 06/10/22 08:00 sulfate)] lancets 28 gauge (Lite Touch #25 ea 01/14/19 04/11/22 Unknown Lancets) anastrozole [Arimidex] See Rx Instructions PO .COMPLEX 02/29/20 06/11/22 06/10/22 16:00 sitagliptin phosphate 50 mg tablet 50 mg PO QAM #90 tabs 12/25/20 06/11/22 06/10/22 08:00 blood sugar diagnostic See Rx Instructions .Route 02/13/21 06/11/22 Unknown .COMPLEX #150 strips escitalopram oxalate 5 mg tablet 5 mg PO DAILY #90 tabs 03/07/21 06/11/22 06/11/22 08:00 (Lexapro) metoprolol tartrate 25 mg tablet 25 mg PO BID #180 tabs 07/11/21 06/11/22 06/11/22 08:00 metformin 750 mg tablet,extended 750 mg PO BID #180 tabs 07/26/21 06/11/22 06/07/22 release 24 hr simvastatin 40 mg tablet 40 mg PO QPM #90 tabs 08/13/21 06/11/22 06/10/22 16:00 furosemide 20 mg tablet 20 mg PO DAILY PRN edema #30 tabs 11/20/21 06/11/22 Unknown nitrofurantoin macrocrystal 100 mg 100 mg PO DAILY #90 caps 01/03/22 06/11/22 06/11/22 08:00 capsule acetaminophen 650 mg 650 mg PO Q6H PRN Pain 05/30/22 06/11/22 06/07/22 tablet,extended release calcium carbonate 1,000 2 tab PO DAILY PRN Acid Reflux 05/30/22 06/11/22 05/16/22 mg-magnesium hydroxide 200 mg chewable tablet (Antacid (calcium carb-magnesium hyd)) calcium carbonate 500 mg-vitamin 1 tab PO DAILY 05/30/22 06/11/22 06/10/22 08:00 D3 3.125 mcg (125 unit) tablet cranberry 500 mg capsule 500 mg PO DAILY 05/30/22 06/11/22 05/31/22 cyanocobalamin (vitamin B-12) 1,000 mcg IM MONTHLY 05/30/22 06/11/22 06/01/22 1,000 mcg/mL injection solution menthol 0.44 %-zinc oxide 20.6 % 1 applic topical DIRECTED PRN 05/30/22 06/11/22 Unknown topical ointment in packet Rash (Calmoseptine) Active Medications Generic Name Dose Route Start Last Admin Trade Name Freq PRN Reason Stop Dose Admin Diltiazem HCl 125 mg/ Dextrose 125 mls @ 5 mls/hr 06/21/22 09:00 06/21/22 09:48 IV 07/21/22 08:59 5 mg/hr .Q24H ROSARIO 5 mls/hr Administration Protocol 5 MG/HR Past Medical History Medical History Anemia chronic, baseline hgb 10-11 range per chart review Atypical ductal hyperplasia of left breast Bilateral breast cancer DM type 2 (diabetes mellitus, type 2) NIDDM [place] (hard of hearing) Hyperlipidemia [place] resident [place] resident, in [place] Osteoarthritis Paroxysmal atrial flutter Recurrent UTI Rosacea Squamous cell carcinoma in situ Vertigo occasional Exercise / Class Metabolic Activity III < 4 Walking/Shop/Light housework Past Family History Family History Sister Cancer Other No family history of adverse response to anesthesia Denies family history of Ovarian cancer Prostate cancer Myocardial infarction Breast cancer Lung cancer Colorectal cancer Past Surgical History Surgical History History of appendectomy History of bilateral mastectomy History of breast biopsy History of cataract surgery History of hysterectomy History of surgery (06/11/22) Wide Local Excision Left Upper Extremity Squamous Cell Carcinoma(Left) - Santiago Gong, Hx of bilateral mastectomy Past Anesthesia History No Hx of Anesthesia Complications and No Family Hx of Anesthesia Complications History of PONV No Hx of PONV and No Hx of Motion Sickness Social History Smoking Status: Unknown if ever smoked Physical Exam Vital Signs Last Vital Signs Temp 38.8 C H 06/21/22 08:50 Pulse 84 06/21/22 06:51 Resp 20 06/21/22 06:51 BP 137/56 L 06/21/22 06:51 Pulse Ox 91 06/21/22 06:51 O2 Del Method 06/21/22 06:51 Testing Laboratory Results 06/21/22 06:45 06/21/22 06:45 PT 10.8 Seconds (9.0-12.0) 06/21/22 06:45 INR 1.0 (0.9-1.1) 06/21/22 06:45 APTT 22.1 Seconds (21.0-31.0) 06/21/22 06:45 Urine Color Yellow 06/21/22 08:45 Urine Appearance Clear (Clear) 06/21/22 08:45 Urine pH 8.5 (4.5-7.5) H 06/21/22 08:45 Ur Specific [place] 1.024 (1.000-1.030) 06/21/22 08:45 Urine Protein Trace (Negative) H 06/21/22 08:45 Urine Glucose (UA) Negative (Negative) 06/21/22 08:45 Urine Ketones Negative (Negative) 06/21/22 08:45 Urine Nitrite Negative (Negative) 06/21/22 08:45 Ur Leukocyte Esterase Negative (Negative) 06/21/22 08:45 Urine WBC (Auto) 1-5 /hpf (0-5) 06/21/22 08:45 Urine RBC (Auto) 0-4 /hpf (0-4) 06/21/22 08:45 U Hyaline Cast (Auto) 1-5 /lpf (0-5) 06/21/22 08:45 U Epithel Cells (Auto) 5-10 /lpf (0-5) H 06/21/22 08:45 Urine Bacteria (Auto) Negative (Negative) 06/21/22 08:45 Blood Type A Positive 06/21/22 07:36 Antibody Screen NEGATIVE 06/21/22 07:36 Electrocardiogram Date: 06/21/22 Findings: + AFIB @ (@ 140 w/ RVR) Chest X-Ray Date: 06/21/22 Findings: + NAD and + cardiomegaly
--- NOTE | 2022-06-21 11:48 | History & Physical Report ---
Date of Service June 21, 2022 Assessment & Plan (1) Acute cholecystitis: Plan: Patient presents with abdominal pain Found to have suggestions of acute cholecystitis on CT Empirically started on IV Zosyn no immediate plans for surgery in view of patient being on anticoagulant Appreciate gen surg recs (2) Hematemesis: Plan: Complaints of coffee ground emesis Could be due to eosophageal tear and given her hx of cirrhosis, will need to r/o variceal bleed GI on consult, plan for EGD Hb currently stable On Protonix (3) Elevated liver enzymes: Plan: Likely due to gall stones and acute cholecystitis GI on consult, plan for ERCP (4) Atrial fibrillation with rapid ventricular response: Plan: Found to be in rapid ventricular rate Currently on Diltiazem drip continuee to monitor (5) Diabetes mellitus: Plan: Blood glucose under good control patient currently NPO will institute insulin sliding scale (6) Squamous cell carcinoma of left upper extremity: Plan: s/p recent resection Plan Full Code DVT SCD History of Present Illness Chief Complaint: coffee ground emesis, abdominal pain Primary Care Provider: [employer] [facility] This is an 86 YO [place] resident with a hx of Squamous cell ca of the skin, s/p resection, Afib on anticoagulant who was brought from her facilty after she had a coffee round emesis and abdominal pain. She is a poor historian and most of the history was obtained from her daughter at bedside and also from the ED Doctor. Upon further evaluation at the ED, her Liver enzymes were elevated, T cristopher, CT abdomen and pelvis also showed evidence of gall stones, colitis. Blood cultures were obtained and she was empirically started on IV Zosyn. General surgery and Gastroenterology have been consulted. She will be admitted to the hospital for further mgt Allergies Allergy/AdvReac Type Severity Reaction Status Date / Time bee venom protein (honey bee) Allergy Severe Swelling Verified 06/11/22 09:45 of Lip/Tongue/Throat Home Medications Medication Instructions Recorded Confirmed Type vitamins A,C,G-picb-vyphwx 1 tab PO BID 12/28/18 06/11/22 History [PreserVision AREDS] ferrous sulfate [Iron (ferrous 1 dose PO QAM 01/07/19 06/11/22 History sulfate)] lancets 28 gauge (Lite Touch #25 ea 01/14/19 04/11/22 History Lancets) anastrozole [Arimidex] See Rx Instructions PO .COMPLEX 02/29/20 06/11/22 History sitagliptin phosphate 50 mg tablet 50 mg PO QAM #90 tabs 12/25/20 06/11/22 Rx blood sugar diagnostic See Rx Instructions .Route 02/13/21 06/11/22 Rx .COMPLEX #150 strips escitalopram oxalate 5 mg tablet 5 mg PO DAILY #90 tabs 03/07/21 06/11/22 Rx (Lexapro) metoprolol tartrate 25 mg tablet 25 mg PO BID #180 tabs 07/11/21 06/11/22 Rx metformin 750 mg tablet,extended 750 mg PO BID #180 tabs 07/26/21 06/11/22 Rx release 24 hr simvastatin 40 mg tablet 40 mg PO QPM #90 tabs 08/13/21 06/11/22 Rx furosemide 20 mg tablet 20 mg PO DAILY PRN edema #30 tabs 11/20/21 06/11/22 Rx nitrofurantoin macrocrystal 100 mg 100 mg PO DAILY #90 caps 01/03/22 06/11/22 Rx capsule acetaminophen 650 mg 650 mg PO Q6H PRN Pain 05/30/22 06/11/22 History tablet,extended release calcium carbonate 1,000 2 tab PO DAILY PRN Acid Reflux 05/30/22 06/11/22 History mg-magnesium hydroxide 200 mg chewable tablet (Antacid (calcium carb-magnesium hyd)) calcium carbonate 500 mg-vitamin 1 tab PO DAILY 05/30/22 06/11/22 History D3 3.125 mcg (125 unit) tablet cranberry 500 mg capsule 500 mg PO DAILY 05/30/22 06/11/22 History cyanocobalamin (vitamin B-12) 1,000 mcg IM MONTHLY 05/30/22 06/11/22 History 1,000 mcg/mL injection solution menthol 0.44 %-zinc oxide 20.6 % 1 applic topical DIRECTED PRN 05/30/22 06/11/22 History topical ointment in packet Rash (Calmoseptine) Past Med/Surg History Medical History Anemia chronic, baseline hgb 10-11 range per chart review Atypical ductal hyperplasia of left breast Bilateral breast cancer DM type 2 (diabetes mellitus, type 2) NIDDM [place] (hard of hearing) Hyperlipidemia [facility] resident, in [place] Osteoarthritis Paroxysmal atrial flutter Recurrent UTI Rosacea Squamous cell carcinoma in situ Vertigo occasional Surgical History History of appendectomy History of bilateral mastectomy History of breast biopsy History of cataract surgery History of hysterectomy History of surgery (06/11/22) Wide Local Excision Left Upper Extremity Squamous Cell Carcinoma(Left) - Santiago Gong DO Hx of bilateral mastectomy Family History Sister Cancer Other No family history of adverse response to anesthesia Denies family history of Ovarian cancer Prostate cancer Myocardial infarction Breast cancer Lung cancer Colorectal cancer Social History Smoking Status: Unknown if ever smoked Second Hand Exposure: No; Preferred Language: Lao Communication Ability: Effective Visual Impairment: No Limitations Ambulance Dispatcher Required: No Beliefs That Will Affect Care: None marital status: / Current Living Situation: Personal Care Facility Current Living Situation Comment: [facility] current occupational status: retired How many Children do You have: 2 Feels Safe at Home: Yes Childhood Exposure to Second-Hand Smoke: Yes caffeine: No Dental Care, Regularly: Yes Physical Activity Frequency: Does not Exercise Seatbelt Use: always Sunscreen Use: No Assistive Devices: Walker Review of Systems Review of Systems: All systems reviewed are negative, apart from the ones contained in the history. Physical Exam Physical Exam: The patient is awake, alert and oriented 3, well developed and well nourished, normocephalic and atraumatic, lying in bed and in no acute distress. HEENT--PERRL, EOMI, mucous membranes and oropharynx mildly dry Neck--supple. No JVD. No bruits. Thyroid normal, trachea midline, no andie nopathy. Heart--normal S1 and S2. No murmurs, rubs or gallops. Lungs--clear bilaterally, no respiratory distress, no accessory muscle use. Abdomen--normal bowel sounds and soft. Mild epigastric and left sided abdominal pain Extremities--no cyanosis or clubbing. No edema. Dermatologic--normal skin turgor, normal color, no abnormal lymph nodes, no rash. Neurologic--cranial nerves II through XII grossly intact. Rheumatologic--normal range of motion. Psychiatric--normal affect. Results & Data Results & Data ([facility]) Vital Signs (Past 12 Hours) Vital Signs Temp Pulse Resp BP Pulse Ox O2 Del Method 06/21/22 08:50 101.8 F H 06/21/22 06:51 100.8 F H 84 20 137/56 L 91 Room Air PG Care Time/CCT Total # of Minutes Spent Total Time Spent with Patient: Total time spent is greater than 50% in coordination of care (as documented) at patient's floor/unit and/or counseling patient: Coding Level of Care Code 21456 INT INP/OBS CARE 375MIN Diagnoses Acute cholecystitis K81.0 Hematemesis K92.0 Nausea presence: unspecified Elevated liver enzymes R74.8 Atrial fibrillation with rapid ventricular response I48.91 Diabetes mellitus E11.9 Squamous cell carcinoma of left upper extremity C44.629 Time Spent (min) 35 (1) Hematemesis Nausea presence: unspecified Qualified Code(s): K92.0 - Hematemesis
[2022-06-21] MEDS ORDERED: METOPROLOL TARTRATE 1 MG/ML VIAL IV ONE ×2 (12:23→14:43)
[2022-06-21] MEDS ORDERED: PHENYLEPHRINE HCL 10 MG/ML VIAL ONE (12:26)
--- NOTE | 2022-06-21 12:36 | Post Operative Brief Note ---
Immediate Post Op Note v1 Date of Surgery June 21, 2022 Pre & Post Diagnosis Operation Date: 06/21/22 08:35 Pre-Op Diagnosis: VOMITING/POSSIBLE UPPER GI BLEED Post-Op Diagnosis: Cholangitis. I identified the patient and participated in the time-out.: Yes Procedure Operation Date: 06/21/22 08:35 Actual Procedures p Endoscopic Retrograde Cholangiopancreato with stent placement. - Zoltan Andino DO Surgeon Zoltan Andino DO Central Sterile Technician none Estimated Blood Loss 0 Findings Consistent with Post-Op Diagnosis
--- NOTE | 2022-06-21 12:37 | Communication Note ---
Date of Service: June 21, 2022 Patient underwent urgent ERCP today for suspected cholangitis. We identified the ampulla evidence of choledocholithiasis with pus in the duct. A short b iliary sphincterotomy was made and several stones extracted. A biliary stent was placed. Recommendations Continue IV hydration Cardiology consultation Hold anticoagulation for 5 days please Broad-spectrum antibiotics for 2 weeks Cholecystectomy per general surgery Repeat ERCP for stent removal in 8 to 12 weeks
--- NOTE | 2022-06-21 12:42 | GI REPORT ---
Patient Name: Rylee Wells Procedure Date: 06/21/2022 12:23 PM Date of : 1935 Admit Type: Emergency Department Age: 86 Gender: Female Attending MD: Zoltan Andino DO, Procedure: ERCP Providers: Zoltan Andino DO Referring MD: [employer], Jonatan Garcia Indications: Suspected ascending cholangitis Medicines: General Anesthesia Complications: No immediate complications. Estimated blood loss: Minimal. Estimated Blood Loss: Estimated blood loss was minimal. Procedure: Pre-Anesthesia Assessment: - Prior to the procedure, a History and Physical was performed, and patient medications, allergies and sensitivities were reviewed. The patient's tolerance of previous anesthesia was reviewed. - The risks and benefits of the procedure and the sedation options and risks were discussed with the patient. All questions were answered and informed consent was obtained. - Patient identification and proposed procedure were verified prior to the procedure by the physician, the nurse and the juvenile court liaison. The procedure was verified in the procedure room. - Pre-procedure physical examination revealed no contraindications to sedation. - ASA Grade Assessment: IV - A patient with severe systemic disease that is a constant threat to life. - After reviewing the risks and benefits, the patient was deemed in satisfactory condition to undergo the procedure. - The anesthesia plan was to use general anesthesia. - Immediately prior to administration of medications, the patient was re-assessed for adequacy to receive sedatives. - The heart rate, respiratory rate, oxygen saturations, blood pressure, adequacy of pulmonary ventilation, and response to care were monitored throughout the procedure. - The physical status of the patient was re-assessed after the procedure. After obtaining informed consent, the scope was passed under direct vision. Throughout the procedure, the patient's blood pressure, pulse, and oxygen saturations were monitored continuously. The Duodenoscope was introduced through the mouth, and advanced to the duodenum and used to inject contrast into the bile duct. The ERCP was accomplished without difficulty. The patient tolerated the procedure well. Findings: The genetic technologist film was normal. The esophagus was successfully intubated under direct vision without detailed examination of the pharynx, larynx, and associated structures, and upper GI tract. The upper GI tract was grossly normal. The major papilla was edematous. The major papilla was on the rim of a diverticulum. The bile duct was deeply cannulated with the short-nosed traction sphincterotome and guidewire. Contrast was injected. I personally interpreted the bile duct images. Contrast extended to the hepatic ducts. The main bile duct was moderately dilated. The largest diameter was 10 mm. The lower third of the main bile duct contained filling defect(s). Biliary sphincterotomy was made with a Fusion OMNI sphincterotome using ERBE electrocautery. There was no post-sphincterotomy bleeding. To discover objects, the biliary tree was swept with an 11.5 mm balloon starting at the bifurcation. Sludge was swept from the duct. A few stones were removed. No stones remained. Pus was swept from the duct. One 10 Fr by 9 cm biliary stent with a single external flap and a single internal flap was placed 9 cm into the common bile duct. Bile flowed through the stent. The stent was in good position. The endoscope was withdrawn from the patient. Impression: - The major papilla appeared edematous. - A filling defect was seen on the cholangiogram. - The entire main bile duct was moderately dilated. - Choledocholithiasis was found. Complete removal was accomplished by biliary sphincterotomy and balloon extraction. - A biliary sphincterotomy was performed. - The biliary tree was swept and pus was found. - One biliary stent was placed into the common bile duct. Recommendation: - Avoid aspirin and nonsteroidal anti-inflammatory medicines for 5 days. - Use broad spectrum antibiotics for 2 weeks. - Repeat ERCP in 8 weeks to remove stent. Zoltan Andino D.O. Zoltan Andino, 06/21/2022 12:42:15 PM This report has been signed electronically. Note Initiated On: 06/21/2022 12:23 PM Number of Addenda: 0 I attest to the content of the Intraoperative Record and orders documented therein, exceptions below {[id number]}
[2022-06-21] MEDS ORDERED: GLUCAGON FOR INJ 1 MG VIAL ONE (12:48)
--- NOTE | 2022-06-21 13:49 | Anesthesiology Progress Note ---
Date of Service June 21, 2022 Anesthesia Post Procedure Vital Signs Vital Signs: Temp Pulse Pulse Pulse Resp BP BP 06/21/22 13:00 131 H 20 100/54 L 06/21/22 12:50 112 H 21 94/51 L 06/21/22 13:20 112 H 18 97/55 L 06/21/22 13:10 129 H 21 99/57 L 06/21/22 12:42 36.5 C 121 H 15 98/59 L 06/21/22 11:46 36.6 C 141 H 26 H 93/50 L 06/21/22 08:50 38.8 C H 06/21/22 06:51 38.2 C H 84 20 137/56 L Pulse Ox O2 Del Method O2 Flow Rate 06/21/22 13:00 100 Oxymask 4 06/21/22 12:50 100 Oxymask 14 06/21/22 13:20 97 Nasal Cannula 2 06/21/22 13:10 96 Nasal Cannula 2 06/21/22 12:42 95 Oxymask 14 06/21/22 11:46 93 Room Air 06/21/22 08:50 06/21/22 06:51 91 Room Air Transfer of Care Handoff Completed per policy Notes Mental Status: alert / awake / arousable Patient Amnestic to Procedure: Yes Nausea / Vomiting: adequately controlled Pain: adequately controlled Airway Patency, RR, SpO2: stable & adequate BP & HR: see Notes below (Patient went into AFIB w/ RVR in ER this am;patient was started on diltiazem drip in ER;Pt started having pauses on EKG preop ,intraop and postop;Diltiazem stopped in ER;) Hydration State: stable & adequate Anesthetic Complications: no major complications apparent Notes: Dr Mayberry hospitalist notified; Cook Soup Dr Nunn notified; pt to be transferred to ICU.
--- NOTE | 2022-06-21 14:02 | Critical Care Consultation ---
Date of Consultation June 21, 2022 Assessment & Plan (1) Acute cholecystitis: (2) Elevated liver enzymes: (3) Atrial fibrillation with rapid ventricular response: (4) Anticoagulant long-term use: (5) Diabetes mellitus: (6) Septic shock: Plan Impression: 86-year-old female presenting with acute cholangitis status post ERCP with sphincterotomy and stent placement. Case is complicated by use of anticoagulants for chronic atrial fibrillation as well as what appears to be tac hybradycardia syndrome with sinus pauses. Recommendations: 1. Neurologic: Continue to follow at this point time. Pain management as needed. 2. Cardiovascular: Septic shock due to cholangitis. Lactate appears to be downtrending. We will continue to follow. Judicious fluids with Normosol at 100 cc an hour. The patient has possibility of clinical deterioration over the next 12 to 24 hours. Her case is also complicated by what appears to be tachybradycardia syndrome. Cardiology consultation will be requested. If the patient continues to have significant pauses, temporary pacing wire or permanent pacemaker might be required. Given her significant pauses, and reluctant to use any AV robert blocking agents at this point time. Will discuss with cardiology additional pharmacologic intervention such as digoxin. Amiodarone may not be a great choice given her LFT abnormalities and the fact that her atrial fibrillation appears to be chronic in nature. Hold additional anticoagulation given sphincterotomy and questionable GI bleed 3. Pulmonary: Chest x-ray was clear. Continue oxygen as needed for saturations greater than or equal to 90%. 4. Renal: No acute issues. Continue to follow urine output. Teixeira catheter will be placed. ICU electrolyte replacement protocol. 5. Endocrine: Glycemic control per protocol. 6. GI: Cholangitis. N.p.o. for now. General surgery consult reviewed and appreciated as well as GI consult. Trend LFTs. Antibiotics as noted below. Will require cholecystectomy at some point time. 7. ID: Cholangitis: Zosyn at this point time will be initiated. We will follow fever curve, white blood cell count, and procalcitonin. 8. Heme-onc: Mild anemia which is stable. Continue to trend at this point time. No indication for transfusion or additional blood products. Holding Eliquis. Should have adequate DVT prophylaxis in place from residual Eliquis for the next 12 to 24 hours then will need to readdress chemical DVT prophylaxis. SCDs will be placed. Patient's overall condition is guarded. We will see how she responds. Possible she could experience clinical worsening with need for escalation of care over the next 24 to 48 hours. She is critically ill with significant possibility of clinical decline in function. A total of 40 minutes of critical care time was spent evaluation management stabilization this patient History of Present Illness Attending Physician: Jonatan Magana MD, [facility] History of Present Illness Asked by hospitalist anesthesia and general surgery to assist in evaluation management this patient admitted with cholangitis and A. fib with RVR. History is obtained from review of electronic medical record and discussion with other providers. The patient is an 86-year-old female with a history of chronic atrial fibrillation who resides at a facility. She was brought in early this morning due to abdominal pain with questionable hematemesis. She had a evaluation in the emergency room revealing anemia which is at her baseline as well as elevated liver function tests. CT of the abdomen showed evidence of gallstones with early colitis. General surgery was consulted who recommended holding anticoagulation and obtaining GI consultation. She was taken to the OR urgently for ERCP. Pus and stones were found in the ampulla. A sphincterotomy was performed and stent was placed. The patient was having pauses as well as A. fib with RVR. Cardiology consultation has been requested. Patient was brought to the ICU postprocedure. She is currently awake and conversant. She denies abdominal pain. She states she feels "lousy". Allergies Allergy/AdvReac Type Severity Reaction Status Date / Time bee venom protein (honey bee) Allergy Severe Swelling Verified 06/11/22 09:45 of Lip/Tongue/Throat Home Medications Medication Instructions Recorded Confirmed Type vitamins A,C,F-ghxa-jonnsn 1 tab PO BID 12/28/18 06/11/22 History [PreserVision AREDS] ferrous sulfate [Iron (ferrous 1 dose PO QAM 01/07/19 06/11/22 History sulfate)] lancets 28 gauge (Lite Touch #25 ea 01/14/19 04/11/22 History Lancets) anastrozole [Arimidex] See Rx Instructions PO .COMPLEX 02/29/20 06/11/22 History sitagliptin phosphate 50 mg tablet 50 mg PO QAM #90 tabs 12/25/20 06/11/22 Rx blood sugar diagnostic See Rx Instructions .Route 02/13/21 06/11/22 Rx .COMPLEX #150 strips escitalopram oxalate 5 mg tablet 5 mg PO DAILY #90 tabs 03/07/21 06/11/22 Rx (Lexapro) metoprolol tartrate 25 mg tablet 25 mg PO BID #180 tabs 07/11/21 06/11/22 Rx metformin 750 mg tablet,extended 750 mg PO BID #180 tabs 07/26/21 06/11/22 Rx release 24 hr simvastatin 40 mg tablet 40 mg PO QPM #90 tabs 08/13/21 06/11/22 Rx furosemide 20 mg tablet 20 mg PO DAILY PRN edema #30 tabs 11/20/21 06/11/22 Rx nitrofurantoin macrocrystal 100 mg 100 mg PO DAILY #90 caps 01/03/22 06/11/22 Rx capsule acetaminophen 650 mg 650 mg PO Q6H PRN Pain 05/30/22 06/11/22 History tablet,extended release calcium carbonate 1,000 2 tab PO DAILY PRN Acid Reflux 05/30/22 06/11/22 History mg-magnesium hydroxide 200 mg chewable tablet (Antacid (calcium carb-magnesium hyd)) calcium carbonate 500 mg-vitamin 1 tab PO DAILY 05/30/22 06/11/22 History D3 3.125 mcg (125 unit) tablet cranberry 500 mg capsule 500 mg PO DAILY 05/30/22 06/11/22 History cyanocobalamin (vitamin B-12) 1,000 mcg IM MONTHLY 05/30/22 06/11/22 History 1,000 mcg/mL injection solution menthol 0.44 %-zinc oxide 20.6 % 1 applic topical DIRECTED PRN 05/30/22 06/11/22 History topical ointment in packet Rash (Calmoseptine) Patient History Medical History Anemia chronic, baseline hgb 10-11 range per chart review Atypical ductal hyperplasia of left breast Bilateral breast cancer DM type 2 (diabetes mellitus, type 2) NIDDM [place] (hard of hearing) Hyperlipidemia halfway resident [facility] resident, in [place] Osteoarthritis Paroxysmal atrial flutter Recurrent UTI Rosacea Squamous cell carcinoma in situ Vertigo occasional Surgical History History of appendectomy History of bilateral mastectomy History of breast biopsy History of cataract surgery History of hysterectomy History of surgery (06/11/22) Wide Local Excision Left Upper Extremity Squamous Cell Carcinoma(Left) - Santiago Gong DO Hx of bilateral mastectomy Family History Sister Cancer Other No family history of adverse response to anesthesia Denies family history of Ovarian cancer Prostate cancer Myocardial infarction Breast cancer Lung cancer Colorectal cancer Social History Smoking Status: Unknown if ever smoked Second Hand Exposure: No; Preferred Language: Estonian Communication Ability: Effective Visual Impairment: No Limitations Supervisor Purification Required: No Beliefs That Will Affect Care: None marital status: / Current Living Situation: Personal Care Facility Current Living Situation Comment: [facility] current occupational status: retired How many Children do You have: 2 Feels Safe at Home: Yes Childhood Exposure to Second-Hand Smoke: Yes caffeine: No Dental Care, Regularly: Yes Physical Activity Frequency: Does not Exercise Seatbelt Use: always Sunscreen Use: No Assistive Devices: Walker Review of Systems Review of Systems: Please refer to admission H&P. No additions or deletions Physical Exam Constitutional: Elderly appearing female, no acute distress Eyes: PERRL Respiratory: normal respiratory effort; no respiratory distress and no labored breathing Cardiovascular: Rate/Rhythm: + tachycardic Occasional pauses up to 3-5 seconds on the monitor Gastrointestinal (Abdomen): Inspection/Auscultation: abdomen normal to inspection; abdomen not distended Percussion/Palpation: + abdomen tender and abdomen soft; no guarding, abdomen not rigid, no abdominal mass and no ascites Skin: no rashes, warm and dry Psychiatric: A+Ox3, euthymic affect Results & Data Results & Data ([facility]) Vital Signs (Past 12 Hours) Vital Signs Temp Pulse Pulse Pulse Resp BP BP 06/21/22 13:00 131 H 20 100/54 L 06/21/22 12:50 112 H 21 94/51 L 06/21/22 13:20 112 H 18 97/55 L 06/21/22 13:10 129 H 21 99/57 L 06/21/22 12:42 36.5 C 121 H 15 98/59 L 06/21/22 11:46 36.6 C 141 H 26 H 93/50 L 06/21/22 08:50 38.8 C H 06/21/22 06:51 38.2 C H 84 20 137/56 L Pulse Ox O2 Del Method O2 Flow Rate 06/21/22 13:00 100 Oxymask 4 06/21/22 12:50 100 Oxymask 14 06/21/22 13:20 97 Nasal Cannula 2 06/21/22 13:10 96 Nasal Cannula 2 06/21/22 12:42 95 Oxymask 14 06/21/22 11:46 93 Room Air 06/21/22 08:50 06/21/22 06:51 91 Room Air Critical Care Results & Data Vital Signs (Past 12 Hours) Vital Signs Temp Pulse Pulse Pulse Resp BP BP 06/21/22 13:40 122 H 15 94/51 L 06/21/22 13:30 36.7 C 125 H 18 99/52 L 06/21/22 13:00 131 H 20 100/54 L 06/21/22 12:50 112 H 21 94/51 L 06/21/22 13:20 112 H 18 97/55 L 06/21/22 13:10 129 H 21 99/57 L 06/21/22 12:42 36.5 C 121 H 15 98/59 L 06/21/22 11:46 36.6 C 141 H 26 H 93/50 L 06/21/22 08:50 38.8 C H 06/21/22 06:51 38.2 C H 84 20 137/56 L Pulse Ox O2 Del Method O2 Flow Rate 06/21/22 13:40 98 Nasal Cannula 2 06/21/22 13:30 98 Nasal Cannula 2 06/21/22 13:00 100 Oxymask 4 06/21/22 12:50 100 Oxymask 14 06/21/22 13:20 97 Nasal Cannula 2 06/21/22 13:10 96 Nasal Cannula 2 06/21/22 12:42 95 Oxymask 14 06/21/22 11:46 93 Room Air 06/21/22 08:50 06/21/22 06:51 91 Room Air Lab & Micro Results (Past 24 Hours) RBC 3.53 M/uL (3.93-5.22) L 06/21/22 WBC 5.15 K/ul (4.8-10.8) 06/21/22 Hgb 10.7 g/dl (12.0-16.0) L 06/21/22 Hct 33.7 % (34.1-44.9) L 06/21/22 MCV 95.5 fL (80.0-100.0) 06/21/22 MCH 30.3 pg (25.0-34.0) 06/21/22 MCHC 31.8 g/dL (32.0-36.0) L 06/21/22 RDW Standard Deviation 49.4 fL (36.4-46.3) H 06/21/22 RDW Coefficient of Variation 14.3 % (11.5-14.5) 06/21/22 Plt Count 176 K/uL (130-400) 06/21/22 MPV 9.9 fL (9.4-12.3) 06/21/22 Neutrophils (%) (Auto) 89.9 % 06/21/22 Lymphocytes (%) (Auto) 6.2 % 06/21/22 Monocytes # (Auto) 0.14 K/uL (0.24-0.82) L 06/21/22 Eosinophils # (Auto) 0.03 K/uL (0-0.50) 06/21/22 Immature Granulocyte % (Auto) 0.4 % 06/21/22 Neutrophils # (Auto) 4.63 K/uL (1.4-6.5) 06/21/22 Lymphocytes # (Auto) 0.32 K/uL (1.2-3.4) L 06/21/22 Monocytes # (Auto) 0.14 K/uL (0.24-0.82) L 06/21/22 Eosinophils # (Auto) 0.03 K/uL (0-0.50) 06/21/22 Basophils # (Auto) 0.01 K/uL (0-0.2) 06/21/22 Immature Granulocyte # (Auto) 0.02 K/uL (0.00-0.02) 3 Na 141 mmol/L (136-145) 06/21/22 K 3.9 mmol/L (3.5-5.1) 06/21/22 Cl 101 mmol/L (98-107) 06/21/22 CO2 31 mmol/L (21-32) 06/21/22 Anion Gap 9 (3-11) 06/21/22 BUN 16 mg/dl (6-23) 06/21/22 Creatinine 0.61 mg/dl (0.6-1.2) 06/21/22 Estimated GFR ( Amer) 94.5 ml/min 06/21/22 Estimated GFR (Non-Af Amer) 81.5 ml/min 06/21/22 BUN/Creatinine Ratio 26.2 (10-20) H 06/21/22 Glu 157 mg/dl (70-99(Fasting)) H 06/21/22 Ca 9.9 mg/dl (8.5-10.1) 06/21/22 Total Bilirubin 1.3 mg/dl (0.2-1.0) H 06/21/22 AST 1095 U/L (13-39) H 06/21/22 ALT 462 U/L (7-52) H 06/21/22 Alkaline Phosphatase 159 U/L (34-104) H 06/21/22 TP 7.1 gm/dl (6.0-8.3) 06/21/22 Albumin 4.1 gm/dl (3.4-5.0) 06/21/22 Globulin 3.0 gm/dl (2.5-4.0) 06/21/22 Albumin/Globulin Ratio 1.4 (0.9-2) 06/21/22 Mg 1.5 mg/dl (1.7-2.4) L 06/21/22 06:45 Calcium Level 9.9 mg/dl (8.5-10.1) 06/21/22 06:45 Prothromb Time International Ratio 1.0 (0.9-1.1) 06/21/22 06:4 5 Diagnostic Findings (Past 24 Hours) Abdomen/Pelvis CT 06/21/22 06:52 CT SCAN OF THE ABDOMEN AND PELVIS WITH IV CONTRAST CLINICAL HISTORY: GI bleeding. Vomiting. COMPARISON STUDY: Renal ultrasound dated 02/06/2022 TECHNIQUE: Following the IV administration of 84 cc of Optiray 350, CT scan of the abdomen and pelvis is performed from the lung bases to the proximal femora. Images are reviewed in the axial, sagittal, and coronal planes. IV contrast was administered without complication. A dose lowering technique was utilized adhering to the principles of ALARA. The examination is compromised by motion artifact. CT DOSE: 480.99 mGy.cm FINDINGS: Lung bases: The heart is enlarged and without pericardial effusion. The coronary arteries are densely calcified. The lung bases are clear noting bibasilar scarring/atelectasis. There is a small hiatal hernia. Liver: The contrast-enhanced liver is normal in size and heterogeneous in attenuation. There is mild nodularity of the hepatic surface contour. There is no intrahepatic biliary ductal dilatation. The hepatic veins and portal veins are patent. Gallbladder: The gallbladder is distended and contains numerous calcified gallstones. Several of these are located within the gallbladder neck. The gallbladder wall is mildly thickened and edematous. There is a prominent fold with possible adenomyomatosis in the fundal region. Spleen: Normal in size and attenuation. Pancreas: Unremarkable. Adrenal glands: A 1.0 cm low-attenuation left adrenal nodule likely represents an adenoma but cannot be definitively characterized due to the presence of IV contrast. The right adrenal gland is normal in appearance. Kidneys: The contrast enhanced kidneys demonstrate mild cortical atrophy and are without hydronephrosis. The kidneys enhance symmetrically. Bilateral renal cysts measure up to 2.5 cm. Abdominal vasculature: There is advanced atherosclerotic calcification and mild ectasia of the abdominal aorta. Bowel: There is mild colonic diverticulosis without CT evidence of acute diverticulitis. No bowel obstruction is seen. A tiny duodenal diverticulum is incidentally noted. The appendix is not visualized. There is mild wall thickening suggested involving the left colon with faint surrounding infiltration. Peritoneum: There is no intraperitoneal free air or abdominal ascites. Lymphadenopathy: None. Pelvic viscera: The bladder is mildly distended but otherwise normal in appear ance. The uterus is surgically absent. There is a 2.5 cm fat attenuation lesion containing calcifications involving the left ovary on axial image #[id number]. Skeletal structures: The skeletal structures are osteopenic. No lytic or blastic lesions are seen. There is moderate to advanced cervical spondylosis. There are bilateral pars defects at L5 with advanced disc space narrowing and 10 mm of anterolisthesis of L5-S1. IMPRESSION: 1. Findings suggest a mild nonspecific colitis of the left colon. Clinical corre lation will be required. 2. Gallstones within an abnormal appearing gallbladder as detailed above. Correlate with clinical and laboratory findings for evidence of acute nahomy cystitis. If warranted this could be further assessed with a right upper quadrant ultrasound. 3. The liver shows morphologic change of cirrhosis. 4. There is a 2.5 cm left ovarian dermoid. 5. Cardiomegaly. 6. Additional findings as above. ACT 112: Negative or not required by law. Electronically signed by: Kirby Oropeza M.D. 06/21/2022 8:40 AM Chest X-Ray 06/21/22 06:53 SINGLE VIEW CHEST CLINICAL HISTORY: Generalized abdominal pain FINDINGS: An AP, portable, upright chest radiograph is compared to study dated 01/11/2020. The heart is enlarged noting atherosclerotic calcification of the thoracic aorta. The pulmonary vasculature is noncongested. Chronic interstitial thickening similar to previous. There is bibasilar scarring/atelectasis. No airspace consolidation or large pleural effusion is identified. No pneumothorax is seen. The skeletal structures are osteopenic. There is chronic posttraumatic deformity of the right proximal humerus. IMPRESSION: Cardiomegaly with no active disease in the chest. ACT 112: Negative or not required by law. Electronically signed by: Kirby Oropeza M.D. 06/21/2022 7:41 AM I & O Totals 24 Hours 06/20/22 06/21/22 06/22/22 06:59 06:59 06:59 Intake Total 400 / 400 Balance 400 / 400 Cumulative 06/21/22 06:34 thru 06/21/22 14:01 Intake Total 400 Balance 400 RT Ventilator Mngmt (Last Documented) Ventilator Ordered Settings Respiratory Rate 15 06/21/22 13:40 Ventilator - PT Measurements Respiratory Rate 15 Coding Level of Care Code Critical Care 1st 30-74 mins Diagnoses Acute cholecystitis K81.0 Elevated liver enzymes R74.8 Atrial fibrillation with rapid ventricular response I48.91 Anticoagulant long-term use Z79.01 Diabetes mellitus E11.9 Septic shock A41.9; R65.21
[2022-06-21] MEDS ORDERED: LIDOCAINE 1% LOCAL 20 ML VIAL ONE (14:10)
--- NOTE | 2022-06-21 14:10 | Electrocardiogram Report ---
Test Reason : Blood Pressure : / mmHG Vent. Rate : 082 BPM Atrial Rate : 082 BPM P-R Int : 166 ms QRS Dur : 082 ms QT Int : 392 ms P-R-T Axes : 047 000 091 degrees QTc Int : 457 ms Poor data quality, interpretation may be adversely affected Normal sinus rhythm Septal infarct , age undetermined Abnormal ECG When compared with ECG of 05-JUN-2022 14:49, Nonspecific T wave abnormality now evident in Lateral leads Confirmed by Jorge Diaz ([id number]) on 06/21/2022 2:09:58 PM Referred By: Robert Newby Confirmed By:Jorge Diaz
[2022-06-21] MEDS ORDERED: PIPERACILLIN/TAZOBACTAM 3.375 GM in DEXTROSE 5% 100 ML IV SCH (14:15)
--- NOTE | 2022-06-21 14:16 | Electrocardiogram Report ---
Test Reason : Blood Pressure : / mmHG Vent. Rate : 140 BPM Atrial Rate : 156 BPM P-R Int : 000 ms QRS Dur : 076 ms QT Int : 270 ms P-R-T Axes : 000 -13 186 degrees QTc Int : 412 ms Atrial fibrillation with rapid ventricular response Septal infarct (cited on or before 21-JUN-2022) Abnormal ECG When compared with ECG of 21-JUN-2022 06:48, (unconfirmed) Atrial fibrillation has replaced Sinus rhythm Vent. rate has increased BY 58 BPM Confirmed by Jorge Diaz ([id number]) on 06/21/2022 2:15:25 PM Referred By: Robert [facility] Confirmed By:Jorge Diaz
[2022-06-21] MEDS ORDERED: ONDANSETRON INJ 2 MG/ML 2 ML VIAL IV PRN (14:20)
[2022-06-21] MEDS ORDERED: MIDAZOLAM HCL 1 MG/ML 2ML VIAL ONE (14:33)
--- NOTE | 2022-06-21 14:44 | Cardiology Consultation ---
Date of Consultation June 21, 2022 Assessment & Plan (1) Atrial fibrillation with rapid ventricular response: (2) Anticoagulant long-term use: (3) Acute cholecystitis: (4) Septic shock: Plan 1. Atrial fibrillation: She has a history of atrial fibrillation with rapid heart rate however the identified episodes have been very infrequent, the only episode prior to her current admission that I am aware of being documented was a decade ago. She was however not very symptomatic so she may have more frequent episodes than we realize. The degree of heart rate control as an outpatient is unknown. She presented here in sinus rhythm but quickly reverted to atrial fibrillation with a rapid heart rate. She will need medications to control the heart rate and possibly the rhythm. I would consider the use of amiodarone to control her rhythm, although she does have significant LFT elevations which may be a contraindication. It would considerably simplify her management if we can maintain sinus rhythm. 2. Anticoagulation: She had been on Eliquis on a long-term basis, at least as of April 2022 it remains on her medication list although I do not believe she was taking it on presentation. For the long run we will need to continue anticoagulation although for the short-term we we will need to hold Eliquis. If she remains in atrial fibrillation and her clinical status allows it we can add heparin until she recovers sufficiently to use Eliquis. I would not worry about anticoagulation today since we know she was in sinus rhythm this morning when she presented, although we do not really know her burden. 3. Acute cholecystitis: Her presentation appears to be acute cholecystitis and she has been treated with stent placement. 4. Septic shock: She presented and continues to have signs of septic shock. 5. Bradycardia: She had severe bradycardia and required a temporary pacemaker which is now in place. On review of the rhythm strips this appears to be an abnormal sinus node recovery time, it appears that the atrial fibrillation terminates and it takes some time for rhythm to restart. Is not clear to me whether she will need a permanent pacemaker or not, certainly she should not have one placed now while there is a risk of her having ongoing sepsis. Maintenance of sinus rhythm (with the use of amiodarone for now) will limit these pauses. 6. Temporary pacemaker: At this point I would leave the temporary pacemaker in place even though she is not using it, if she converts to sinus rhythm she may well need it. I believe cholecystectomy might be planned for later this weekend, it might be prudent to leave the pacemaker in place through surgery even if she does not use it much. History of Present Illness Reason for Consultation: Atrial fibrillation with rapid ventricular response, sinus pauses Attending Physician: Savanah Mayberry MD History of Present Illness This is an 86-year-old woman with a history of diabetes mellitus, dyslipidemia and ductal carcinoma of the right breast for which she has had mastectomy and node biopsy in January 2020. She also has a history of atrial flutter, this was identified October 22, 2012 and spontaneously resolved. Echocardiography in the past has shown normal left ventricular size and function. She has not been aware of recurrence of her arrhythmia, however I believe she was asymptomatic at the time of identification. She has remained on Eliquis 5 mg twice a day as an anticoagulant. She currently resides in [facility] in [place]. Evidently she has been having declining mental status. She developed acute cholecystitis and presented with abdominal discomfort, she was started on intravenous antibiotics. She did have a low-grade fever. She has also had hematemesis associated with vomiting and has elevated liver function tests. When she presented to the emergency room this morning she was in sinus rhythm on her electrocardiogram (82 bpm at 0648). However she developed atrial fibrillation with a rapid heart rate and that 0900 her heart rate was 140 bpm. She had urgent endoscopic retrograde cholangiopancreatography with stent placement performed. She is felt to have septic shock with hypotension and elevated lactate. During or around her ERCP procedure she was having periods of termination of atrial fibrillation with long pauses before resuming either a few sinus beats or atrial fibrillation. This is consistent with a very abnormal sinus node recovery time, which may be intrinsic or related to her current illness. She therefore had a temporary pacemaker in place. At the time of my evaluation in her room she seemed to be comfortable, she is a poor historian but she was awake and talkative. Her daughter was present in the room. Allergies Allergy/AdvReac Type Severity Reaction Status Date / Time bee venom protein (honey bee) Allergy Severe Swelling Verified 06/11/22 09:45 of Lip/Tongue/Throat Home Medications Medication Instructions Recorded Confirmed Type vitamins A,C,Z-gujh-xthfla 1 tab PO BID 12/28/18 06/11/22 History [PreserVision AREDS] ferrous sulfate [Iron (ferrous 1 dose PO QAM 01/07/19 06/11/22 History sulfate)] lancets 28 gauge (Lite Touch #25 ea 01/14/19 04/11/22 History Lancets) anastrozole [Arimidex] See Rx Instructions PO .COMPLEX 02/29/20 06/11/22 History sitagliptin phosphate 50 mg tablet 50 mg PO QAM #90 tabs 12/25/20 06/11/22 Rx blood sugar diagnostic See Rx Instructions .Route 02/13/21 06/11/22 Rx .COMPLEX #150 strips escitalopram oxalate 5 mg tablet 5 mg PO DAILY #90 tabs 03/07/21 06/11/22 Rx (Lexapro) metoprolol tartrate 25 mg tablet 25 mg PO BID #180 tabs 07/11/21 06/11/22 Rx metformin 750 mg tablet,extended 750 mg PO BID #180 tabs 07/26/21 06/11/22 Rx release 24 hr simvastatin 40 mg tablet 40 mg PO QPM #90 tabs 08/13/21 06/11/22 Rx furosemide 20 mg tablet 20 mg PO DAILY PRN edema #30 tabs 11/20/21 06/11/22 Rx nitrofurantoin macrocrystal 100 mg 100 mg PO DAILY #90 caps 01/03/22 06/11/22 Rx capsule acetaminophen 650 mg 650 mg PO Q6H PRN Pain 05/30/22 06/11/22 History tablet,extended release calcium carbonate 1,000 2 tab PO DAILY PRN Acid Reflux 05/30/22 06/11/22 History mg-magnesium hydroxide 200 mg chewable tablet (Antacid (calcium carb-magnesium hyd)) calcium carbonate 500 mg-vitamin 1 tab PO DAILY 05/30/22 06/11/22 History D3 3.125 mcg (125 unit) tablet cranberry 500 mg capsule 500 mg PO DAILY 05/30/22 06/11/22 History cyanocobalamin (vitamin B-12) 1,000 mcg IM MONTHLY 05/30/22 06/11/22 History 1,000 mcg/mL injection solution menthol 0.44 %-zinc oxide 20.6 % 1 applic topical DIRECTED PRN 05/30/22 06/11/22 History topical ointment in packet Rash (Calmoseptine) Patient History Medical History Anemia chronic, baseline hgb 10-11 range per chart review Atypical ductal hyperplasia of left breast Bilateral breast cancer DM type 2 (diabetes mellitus, type 2) NIDDM [place] (hard of hearing) Hyperlipidemia long-term resident [facility], in [place] Osteoarthritis Paroxysmal atrial flutter Recurrent UTI Rosacea Squamous cell carcinoma in situ Vertigo occasional Surgical History History of appendectomy History of bilateral mastectomy History of breast biopsy History of cataract surgery History of hysterectomy History of surgery (06/11/22) Wide Local Excision Left Upper Extremity Squamous Cell Carcinoma(Left) - Santiago Gong, DO Hx of bilateral mastectomy Family History Sister Cancer Other No family history of adverse response to anesthesia Denies family history of Ovarian cancer Prostate cancer Myocardial infarction Breast cancer Lung cancer Colorectal cancer Social History Smoking Status: Never smoker Second Hand Exposure: No; Hx Alcohol Use: No Hx Substance Use: No Preferred Language: Polish Communication Ability: Effective Visual Impairment: No Limitations Water Safety Teacher Required: No Beliefs That Will Affect Care: None marital status: / Current Living Situation: Personal Care Facility Current Living Situation Comment: [facility] current occupational status: retired How many Children do You have: 2 Feels Safe at Home: Yes Childhood Exposure to Second-Hand Smoke: Yes caffeine: No Dental Care, Regularly: Yes Physical Activity Frequency: Does not Exercise Seatbelt Use: always Sunscreen Use: No Assistive Devices: Walker Review of Systems Review of Systems: Unobtainable due to cognitive status Physical Exam Physical Exam: Constitutional: Alert, cooperative and in no distress. HEENT: Unremarkable, she does have a right IJ temporary pacemaker in place. Neck: No jugular venous distention, carotid pulses are irregular but equal bilaterally without bruits. Pulmonary: Clear to auscultation bilaterally. Cardiac: Irregular rapid rhythm with no murmur, gallop or rub. Abdomen: Soft, nontender with normal bowel sounds. Extremities: No edema. Neurologic: No focal findings. Gait cannot be tested. Skin: No rash, ecchymoses or petechiae. Results & Data ([facility]) Vital Signs (Past 12 Hours) Vital Signs Temp Pulse Pulse Pulse Resp BP BP 06/21/22 14:00 35.6 C L 123 H 20 93/72 L 06/21/22 13:40 122 H 15 94/51 L 06/21/22 13:30 36.7 C 125 H 18 99/52 L 06/21/22 13:00 131 H 20 100/54 L 06/21/22 12:50 112 H 21 94/51 L 06/21/22 13:20 112 H 18 97/55 L 06/21/22 13:10 129 H 21 99/57 L 06/21/22 12:42 36.5 C 121 H 15 98/59 L 06/21/22 11:46 36.6 C 141 H 26 H 93/50 L 06/21/22 08:50 38.8 C H 06/21/22 06:51 38.2 C H 84 20 137/56 L Pulse Ox O2 Del Method O2 Flow Rate 06/21/22 14:00 98 Nasal Cannula 2 06/21/22 13:40 98 Nasal Cannula 2 06/21/22 13:30 98 Nasal Cannula 2 06/21/22 13:00 100 Oxymask 4 06/21/22 12:50 100 Oxymask 14 06/21/22 13:20 97 Nasal Cannula 2 06/21/22 13:10 96 Nasal Cannula 2 06/21/22 12:42 95 Oxymask 14 06/21/22 11:46 93 Room Air 06/21/22 08:50 06/21/22 06:51 91 Room Air Laboratory Results Cardiac Enzymes 06/21/22 Range/Units 06:45 AST 1095 H (13-39) U/L Troponin I High Sens 7.3 (0-14) pg/ml Coagulation 06/21/22 Range/Units 06:45 PT 10.8 (9.0-12.0) Seconds APTT 22.1 (21.0-31.0) Seconds CBC 06/21/22 Range/Units 06:45 WBC 5.15 (4.8-10.8) K/ul RBC 3.53 L (3.93-5.22) M/uL Hgb 10.7 L (12.0-16.0) g/dl Hct 33.7 L (34.1-44.9) % Plt Count 176 (130-400) K/uL Neut # (Auto) 4.63 (1.4-6.5) K/uL Lymph # (Auto) 0.32 L (1.2-3.4) K/uL [place] # (Auto) 0.14 L (0.24-0.82) K/uL Eos # (Auto) 0.03 (0-0.50) K/uL Baso # (Auto) 0.01 (0-0.2) K/uL Comprehensive Metabolic Panel 06/21/22 Range/Units 06:45 Sodium 141 (136-145) mmol/L Potassium 3.9 (3.5-5.1) mmol/L Chloride 101 (98-107) mmol/L Carbon Dioxide 31 (21-32) mmol/L BUN 16 (6-23) mg/dl Creatinine 0.61 (0.6-1.2) mg/dl Glucose 157 H (70-99(Fasting)) mg/dl Calcium 9.9 (8.5-10.1) mg/dl AST 1095 H (13-39) U/L ALT 462 H (7-52) U/L Alkaline Phosphatase 159 H (34-104) U/L Total Protein 7.1 (6.0-8.3) gm/dl Albumin 4.1 (3.4-5.0) gm/dl Intake and Output 06/21/22 06/21/22 06/21/22 06:59 14:59 22:59 Intake Total 2313.333 / 2313.333 Balance 2313.333 / 2313.333 Intake: IV / Acetaminophen 1,000 mg In 100 100 / 100 ml @ 400 mls/hr IV NOW STA Rx#: [id number] Magnesium Sulfate / D5w 1 gm In 100 / 100 100 ml @ 100 mls/hr IV NOW STA Rx#:[id number] PANTOprazole 80 mg In Dextrose 100 / 100 5% 100 ml @ 400 mls/hr IV ONE STA Rx#:[id number] Piperacillin/Tazobactam 4.5 gm 120 / 120 In 120 ml @ 240 mls/hr IV NOW ONE Rx#:[id number] Sodium Chloride 0.9% 1000ML 1, 1000 / 1000 000 ml @ 999 mls/hr IV .Q1H1M ONE Rx#:[id number] Sodium Chloride 0.9% 500 ml @ 500 / 500 999 mls/hr IV .Q31M STA Rx#: [id number] cefTRIAXone SODIUM 2,000 mg In 70 / 70 70 ml @ 140 mls/hr IV NOW STA Rx#:[id number] dilTIAZem HCL 125 mg In 23.333 / 23.333 Dextrose 5% 100 ml @ 5 MG/HR 5 mls/hr IV .Q24H ROSARIO Rx#: [id number] IV Perioperative 300 / 300 Other: Weight 73.1 kg 73.1 kg Weight Measurement Method Built in [facility] Patient Weight 06/22/22 06:59 Weight 73.1 kg Diagnostic Findings Telemetry: On our current telemetry system she has been in atrial fibrillation with a rapid heart rate throughout, no slow rates. Review of rhythm strips taken during her procedure show PG Care Time/CCT Total # of Minutes Spent Total Time Spent with Patient: Total time spent is greater than 50% in coordination of care (as documented) at patient's floor/unit and/or counseling patient: Coding Level of Care Code 63449 INT INP/OBS CARE 3/75MIN Diagnoses Atrial fibrillation with rapid ventricular response I48.91 Anticoagulant long-term use Z79.01 Acute cholecystitis K81.0 Septic shock A41.9; R65.21 Time Spent (min) 85
--- NOTE | 2022-06-21 15:09 | Cardiac Catheterization ---
[facility] Data: Face Hardener Cardiac Status Clinical evaluation leading to the procedure CAD Presenation: No Sxs, No angina (A. fib with RVR and greater than 3-second pauses) Diagnostic Physicians Name: Clifford Ortega MD, PhD Closure Device Recommendations: Medical Therapy and/or Counseling Cardiac Cath Procedure Full Procedure Date June 21, 2022 Pre-Procedure Diagnosis Pre-Procedure Diagnosis: Arrhythmia AUC Score AUC Score: NA Post-Procedure Diagnosis Post-Procedure Diagnosis: Cardiothoracic Finding (paced rhythm) Procedure(s) Performed Procedure(s) Performed: Temporary Pacemaker and Ultrasound Guided Vascular Access [employer] Clifford Ortega MD, PhD Estimated Blood Loss Estimated Blood Loss: 2 ml Medication(s) Medication(s): Fentanyl, Lidocaine 1% and Versed Summary of Findings Brief description: Patient was brought to the cardiac catheterization suite where she was shaved and prepped in a sterile fashion. Sedated using IV Versed and fentanyl. Soft tissues of the right neck were anesthetized using 1 mL of 1% Xylocaine. Using the ultrasound for guidance (image saved), the right internal jugular was identified and accessed with a micropuncture kit. The micropuncture sheath was then exchanged over a short 0.035 J-tip wire for a 7 Azeri venous sheath. Then, under fluoroscopic guidance a 5 Azeri temporary pacing lead was advanced through the sheath and the balloon inflated. Under fluoroscopic guidance it was passed across the tricuspid valve and positioned at the septum near the apex. The balloon was deflated and pacing was initiated at 130 bpm (A. fib with RVR Baseline). We had good capture and reduced the current to 5 mA. The pacing rate was then reduced to 80 bpm. The sheath was then sutured in place. The access site was then dressed with a Tegaderm. Patient remained hemodynamically stable, asymptomatic, with intermittent pacing as needed. She was returned to the recovery area. This ended the case. Transvenous pacing lead at the distal interventricular septum. Excellent capture at 5 mA and heart rate of 80 bpm. No evidence of complication. Hemodynamics Rest Ao:: 114/58 mmHg Final Ao: 123/56 mmHg LV: Not performed Recommendations Recommendations: Medical Therapy and/or Counseling Radiation Exposure (mGy) 48 mg, fluoroscopy time 1.35-minute Contrast (mls) None Anesthesia 1 mg IV Versed, 25 mcg IV fentanyl Procedural Complication(s) None Disposition ICU I attest to the content of the Intraoperative Record and any orders documented therein. Any exceptions are noted below. [facility] Card Cath Procedure Codes Therapeutic Services & Ancillary Procedure 1: Cardiovascular Tx and Anc Procedures: 09702 Ultrasonic Guidance Vascular Access Procedure 2: Cardiovascular Tx and Anc Procedures: 24555 Temp Pacer Insert PG Care Time/CCT Total # of Minutes Spent Total Time Spent with Patient: Total time spent is greater than 50% in coordination of care (as documented) at patient's floor/unit and/or counseling patient:
--- NOTE | 2022-06-21 15:21 | Cardiology Consultation ---
Date of Consultation June 21, 2022 Assessment & Plan (1) Atrial fibrillation with rapid ventricular response: A. fib with RVR and low normal blood pressure. Not sure if the pauses are secondary to the IV diltiazem which was provided in the OR or if she has underlying sick sinus syndrome. The diltiazem has washed out yet she continues with long pauses. Given her age and history of atrial flutter I suspect she has sick sinus syndrome. I have asked Dr. Diaz from EP to see her regarding need for permanent pacemaker implantation. She did have successful transvenous pacer implantation and we will now try to control her heart rate and potentially her rhythm using amiodarone versus beta-radha versus calcium channel radha. She had been on Eliquis 5 mg p.o. twice daily but I am not sure when her last dose was. As long as she was compliant then she would be low short term risk of atrial clot formation and therefore use of amiodarone with conversion to sinus rhythm likely poses low risk of cardioembolic stroke. I suspect she will be n.p.o. because of her ERCP and anticoagulation with IV heparin should be considered as soon as risk of bleeding is adequately low. She would then return to Eliquis once she is able to take oral medications. We can begin amiodarone or other AV robert blocking agents now. Will need to reassess for significant pauses tomorrow or the following day. If she continues to have significant pauses then Dr. Diaz may consider permanent pacemaker implantation. History of Present Illness Reason for Consultation: Postoperative A. fib with RVR and pauses greater than 3 seconds. Attending Physician: Savanah Mayberry MD History of Present Illness 86-year-old female with a history of atrial flutter (paroxysmal) who follows with Dr. Steward for her cardiology issues. She underwent urgent ERCP today. She developed A. fib with rapid ventricular response while in the OR and discontinued while in PACU. She was given diltiazem but had significant pauses. The diltiazem was stopped but despite this the patient continued with intermittent pauses of greater than 3 seconds. She was subsequently admitted to the ICU. I saw her while she was in the PACU. However, even an hour later she continued to have pauses of 3 seconds or longer. She also had mild hypotension most likely secondary to the rapid ventricular response. Therefore, I recommended transvenous pacemaker insertion to prevent pauses/asystole/profound bradycardia and allow for initiation of rate control medications for her atrial fibrillation. She underwent transvenous pacer lead insertion without complication. She has not returned to the ICU. The patient herself is somewhat demented and delirious secondary to her acute illness. Her daughter was present to discuss her situation and tells me that she has only mild dementia at baseline. We did obtain full informed consent from her daughter prior to patient undergoing the procedure. Allergies Allergy/AdvReac Type Severity Reaction Status Date / Time bee venom protein (honey bee) Allergy Severe Swelling Verified 06/11/22 09:45 of Lip/Tongue/Throat Home Medications Medication Instructions Recorded Confirmed Type vitamins A,C,L-uzes-qftrui 1 tab PO BID 12/28/18 06/11/22 History [PreserVision AREDS] ferrous sulfate [Iron (ferrous 1 dose PO QAM 01/07/19 06/11/22 History sulfate)] lancets 28 gauge (Lite Touch #25 ea 01/14/19 04/11/22 History Lancets) anastrozole [Arimidex] See Rx Instructions PO .COMPLEX 02/29/20 06/11/22 History sitagliptin phosphate 50 mg tablet 50 mg PO QAM #90 tabs 12/25/20 06/11/22 Rx blood sugar diagnostic See Rx Instructions .Route 02/13/21 06/11/22 Rx .COMPLEX #150 strips escitalopram oxalate 5 mg tablet 5 mg PO DAILY #90 tabs 03/07/21 06/11/22 Rx (Lexapro) metoprolol tartrate 25 mg tablet 25 mg PO BID #180 tabs 07/11/21 06/11/22 Rx metformin 750 mg tablet,extended 750 mg PO BID #180 tabs 07/26/21 06/11/22 Rx release 24 hr simvastatin 40 mg tablet 40 mg PO QPM #90 tabs 08/13/21 06/11/22 Rx furosemide 20 mg tablet 20 mg PO DAILY PRN edema #30 tabs 11/20/21 06/11/22 Rx nitrofurantoin macrocrystal 100 mg 100 mg PO DAILY #90 caps 01/03/22 06/11/22 Rx capsule acetaminophen 650 mg 650 mg PO Q6H PRN Pain 05/30/22 06/11/22 History tablet,extended release calcium carbonate 1,000 2 tab PO DAILY PRN Acid Reflux 05/30/22 06/11/22 History mg-magnesium hydroxide 200 mg chewable tablet (Antacid (calcium carb-magnesium hyd)) calcium carbonate 500 mg-vitamin 1 tab PO DAILY 05/30/22 06/11/22 History D3 3.125 mcg (125 unit) tablet cranberry 500 mg capsule 500 mg PO DAILY 05/30/22 06/11/22 History cyanocobalamin (vitamin B-12) 1,000 mcg IM MONTHLY 05/30/22 06/11/22 History 1,000 mcg/mL injection solution menthol 0.44 %-zinc oxide 20.6 % 1 applic topical DIRECTED PRN 05/30/22 06/11/22 History topical ointment in packet Rash (Calmoseptine) Patient History Medical History Anemia chronic, baseline hgb 10-11 range per chart review Atypical ductal hyperplasia of left breast Bilateral breast cancer DM type 2 (diabetes mellitus, type 2) NIDDM [place] (hard of hearing) Hyperlipidemia care home resident [facility] resident, in [place] Osteoarthritis Paroxysmal atrial flutter Recurrent UTI Rosacea Squamous cell carcinoma in situ Vertigo occasional Surgical History History of appendectomy History of bilateral mastectomy History of breast biopsy History of cataract surgery History of hysterectomy History of surgery (06/11/22) Wide Local Excision Left Upper Extremity Squamous Cell Carcinoma(Left) - Santiago Gong DO Hx of bilateral mastectomy Family History Sister Cancer Other No family history of adverse response to anesthesia Denies family history of Ovarian cancer Prostate cancer Myocardial infarction Breast cancer Lung cancer Colorectal cancer Social History Smoking Status: Unknown if ever smoked Second Hand Exposure: No; Preferred Language: Maltese Communication Ability: Effective Visual Impairment: No Limitations Blind 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 However, she is demented and probably acutely delirious. Therefore, difficult to obtain an accurate review of systems. What I do have was obtained from the chart. Physical Exam Constitutional: Elderly, frail female who appears acutely ill. Eyes: Extraocular muscles intact. ENMT: Oral mucosa is pink and dry Neck: No JVD. Right IJ catheter with transvenous pacer lead is intact. Respiratory: Clear to auscultation bilaterally. No wheezing, rhonchi, or rales. Cardiovascular: Irregular rhythm with a tachycardic rate. Intermittently paced on the monitor. Systolic murmur. Musculoskeletal: No edema Neurologic: Demented plus or minus delirious (mild). Moves all extremities voluntarily. Results & Data ([facility]) Vital Signs (Past 12 Hours) Vital Signs Temp Pulse Pulse Pulse Resp BP BP 06/21/22 14:02 06/21/22 14:00 35.6 C L 123 H 20 93/72 L 06/21/22 13:40 122 H 15 94/51 L 06/21/22 13:30 36.7 C 125 H 18 99/52 L 06/21/22 13:00 131 H 20 100/54 L 06/21/22 12:50 112 H 21 94/51 L 06/21/22 13:20 112 H 18 97/55 L 06/21/22 13:10 129 H 21 99/57 L 06/21/22 12:42 36.5 C 121 H 15 98/59 L 06/21/22 11:46 36.6 C 141 H 26 H 93/50 L 06/21/22 08:50 38.8 C H 06/21/22 06:51 38.2 C H 84 20 137/56 L Pulse Ox O2 Del Method O2 Flow Rate 06/21/22 14:02 Nasal Cannula 2 06/21/22 14:00 98 Nasal Cannula 2 06/21/22 13:40 98 Nasal Cannula 2 06/21/22 13:30 98 Nasal Cannula 2 06/21/22 13:00 100 Oxymask 4 06/21/22 12:50 100 Oxymask 14 06/21/22 13:20 97 Nasal Cannula 2 06/21/22 13:10 96 Nasal Cannula 2 06/21/22 12:42 95 Oxymask 14 06/21/22 11:46 93 Room Air 06/21/22 08:50 06/21/22 06:51 91 Room Air PG Care Time/CCT Total # of Minutes Spent Total Time Spent with Patient: Total time spent is greater than 50% in coordination of care (as documented) at patient's floor/unit and/or counseling patient: Critical Care Time: Yes 75 minutes in initial assessment, examination, review of records, discussion with family, staff, formulation and implementation of a plan of care as well as all associated documentation. This is exclusive of the time spent for the procedure. [place] [address] INT INP/OBS CARE 3/75MIN Patient Type New Diagnoses Atrial fibrillation with rapid ventricular response I48.91 Additional Codes Critical Care Time - Critical Care Time: Yes ([id number])
[2022-06-21] MEDS: NORMOSOL-R 1,000 ML IV SCH (15:39)
[2022-06-21] MEDS ORDERED: AMIODARONE IV BOLUS & DRIP IV STA (15:53)
[2022-06-21] MEDS: PIPERACILLIN/TAZOBACTAM 4.5 GM CI (over 4 hours) IV SCH ×2 (15:58→23:16)
[2022-06-21] MEDS: INSULIN ASPART PER UNIT SC SCH ×2 (15:58→20:22)
[2022-06-21] MEDS ORDERED: METOPROLOL TARTRATE 1 MG/ML VIAL IV SCH (16:00)
[2022-06-21] MEDS ORDERED: AMIODARONE / D5W 150 MG/100 ML BAG IV STA (16:00)
[2022-06-21] MEDS ORDERED: 0.2 MICRON FILTER SET 1 EACH IV STA (16:04)
[2022-06-21] MEDS ORDERED: AMIODARONE / D5W 360 MG/200 ML BAG IV ONE (16:15)
[2022-06-21] MEDS ORDERED: ICU Protocol for HYPERglycemia SCH (16:30)
--- NOTE | 2022-06-21 16:41 | Communication Note ---
Date of Service: June 21, 2022 Patient is POD#10 excision of left upper extremity squamous cell carcinoma by Dr. Gong. Post op visit was scheduled for this AM, however due to admission was unable to make it in. I was able to remove the patient's sutures at the bedside. Incision is clean/dry/intact, some scant blood at distal portion of wound with removal of that suture. No active bleeding. Steri-strips were placed which will fall off on their on or may be removed in about about 1 weeks time.
[2022-06-21] MEDS: ICU ELECTROLYTE REPLACEMENT PROTOCOL SCH (18:25)
[2022-06-21 21:19] LABS: A calco-baum cmplx NotReported Not Detected (NotDetected); Bact fragilis Not Reported Not Detected (NotDetected); C auris Not Reported Not Detected (NotDetected); CTX-M Resistant Gene Not Detected (NotDetected); Calbicans Not Reported Not Detected (NotDetected); Candida glabrata Not Reported Not Detected (NotDetected); Candida krusei Not Reported Not Detected (NotDetected); Cneoformans/gatti Not Reported Not Detected (NotDetected); Cparapsilosis Not Reported Not Detected (NotDetected); Ctropicalis Not Reported Not Detected (NotDetected); E cloacae compx Not Reported Not Detected (NotDetected); Efaecalis Not Reported Not Detected (NotDetected); Efaecium Not Reported Not Detected (NotDetected); Enterobacterales DETECTED (NotDetected); Enterobacterales Not Reported DETECTED (NotDetected); Escherichia coli Not Reported DETECTED (NotDetected); H influenzae Not Reported Not Detected (NotDetected); IMP Resistant Gene Not Detected (NotDetected); K aerogenes Not Reported Not Detected (NotDetected); KPC Resistant Gene Not Detected (NotDetected); Koxytoca Not Reported Not Detected (NotDetected); Kpneumoniae grp Not Reported Not Detected (NotDetected); Lmonocyt Not Reported Not Detected (NotDetected); N meningitidis Not Reported Not Detected (NotDetected); NDM Resistant Gene Not Detected (NotDetected); OXA 48 Like Resistant Gene Not Detected (NotDetected); P aeruginosa Not Reported Not Detected (NotDetected); Proteus spp Not Reported Not Detected (NotDetected); Salmonella spp Not Reported Not Detected (NotDetected); Smarcescens Not Reported Not Detected (NotDetected); Staph lugdunensis Not Reported Not Detected (NotDetected); Staph spp. Not Reported Not Detected (NotDetected); Staphaureus Not Reported Not Detected (NotDetected); Staphepi Not Reported Not Detected (NotDetected); Stenmaltophilia Not Reported Not Detected (NotDetected); Strep agal(GrpB) Not Reported Not Detected (NotDetected); Strep pneum Not Reported Not Detected (NotDetected); Strep pyog (GrpA) Not Reported Not Detected (NotDetected); Strep spp Not Reported Not Detected (NotDetected); VIM Resistant Gene Not Detected (NotDetected); mcr-1 Colistin Resistant Gene Not Detected (NotDetected)
[2022-06-21] MEDS: AMIODARONE / D5W 360 MG/200 ML BAG IV SCH (22:26)
[2022-06-22] MEDS: NORMOSOL-R 1,000 ML IV SCH ×2 (02:02→15:37)
[2022-06-22 05:18] LABS: Hematocrit (blood only) 27.6 % (34.1-44.9); Mean Corpuscular Hemoglobin 30.1 pg (25.0-34.0); Mean Corpuscular Hgb Conc 32.6 g/dL (32.0-36.0); Mean Corpuscular Volume 92.3 fL (80.0-100.0); Mean Platelet Volume 10.3 fL (9.4-12.3); Platelet Count 144 K/uL (130-400); RDW Coefficient of Variation 14.6 % (11.5-14.5); RDW Standard Deviation 49.6 fL (36.4-46.3); Red Blood Count 2.99 M/uL (3.93-5.22); White Blood Count 8.77 K/ul (4.8-10.8)
[2022-06-22 05:42] LABS: Albumin Level 3.2 gm/dl (3.4-5.0); BUN Creatinine Ratio 17.8 (10-20); Bilirubin Direct 0.5 mg/dl (0-0.2); Calcium 8.4 mg/dl (8.5-10.1); Creatinine Clr Calc Pharmacy 53.2 ml/min; Est GFR (African American) 85.8 ml/min; Est GFR (Non-African American) 74.1 ml/min; Magnesium 1.9 mg/dl (1.7-2.4); Phosphorus 2.9 mg/dl (2.5-4.9); Potassium 3.5 mmol/L (3.5-5.1); Total Protein 5.7 gm/dl (6.0-8.3)
[2022-06-22 05:50] LABS: Basophils # (auto) 0.01 K/uL (0-0.2); Basophils % (auto) 0.1 %; Immature Granulocytes # (auto) 0.02 K/uL (0.00-0.02); Immature Granulocytes % (auto) 0.2 %; Lymphocytes # (auto) 0.28 K/uL (1.2-3.4); Lymphocytes % (auto) 3.2 %; Monocytes # (auto) 0.41 K/uL (0.24-0.82); Monocytes % (auto) 4.7 %; Neutrophils # (auto) 8.05 K/uL (1.4-6.5); Neutrophils % (auto) 91.8 %
--- NOTE | 2022-06-22 06:37 | Surgery Progress Note ---
Date of Service June 22, 2022 Assessment & Plan (1) Septic shock: Plan: Patient with common bile duct obstruction and cholangitis Has gallstones and dilated gallbladder-edema likely from obstructed common bile duct Required postoperative temporary pacemaker Patient normally takes Eliquis for arrhythmia We will hold off on laparoscopic cholecystectomy-we will likely proceed at a later date when patient recovers from current Acute situation Admission and Anticipated Discharge Date Admission Date: June 21, 2022 Subjective Patient awake with some confusion She has a temporary pacemaker in her right jugular vein Temp last evening at 38 1 Liver function studies improved Physical Exam Physical Exam: Her abdomen is flat and soft Temporary pacing wire in right neck Constitutional: Patient awake with some confusion Eyes: Sclera anicteric Respiratory: Breathing comfortably Cardiovascular: Rate/Rhythm: + bradycardic and + irregularly irregular Gastrointestinal (Abdomen): See above Musculoskeletal: Extremities warm No apparent motor dysfunction Psychiatric: Patient awake but with some confusion Results & Data ([facility]) Vital Signs (Past 12 Hours) Vital Signs Pulse Resp BP Pulse Ox O2 Del Method O2 Flow Rate 06/22/22 06:00 55 L 13 96 06/22/22 05:00 56 L 17 99 06/22/22 05:00 125/59 L 06/22/22 04:00 56 L 14 95 06/22/22 04:00 121/48 L 06/22/22 03:00 55 L 12 99 06/22/22 03:00 129/54 L 06/22/22 02:01 148/64 H 06/22/22 02:01 55 L 15 100 06/22/22 02:00 57 L 13 99 06/22/22 01:50 56 L 11 L 98 06/22/22 01:40 55 L 13 99 06/22/22 01:30 55 L 14 99 06/22/22 01:20 56 L 14 99 06/22/22 01:10 56 L 12 99 06/22/22 01:00 56 L 13 99 06/22/22 01:00 98/38 L 06/22/22 00:50 56 L 14 99 06/22/22 00:40 56 L 13 100 06/22/22 00:30 56 L 13 100 06/22/22 00:20 56 L 11 L 99 06/22/22 00:10 57 L 12 100 06/22/22 00:01 125/60 06/22/22 00:01 57 L 7 L 100 06/22/22 00:00 60 24 98 06/21/22 23:50 58 L 18 98 06/21/22 23:40 57 L 15 100 06/21/22 23:30 56 L 15 100 06/21/22 23:20 62 15 99 06/21/22 23:10 56 L 16 100 06/21/22 23:37 65 06/21/22 23:00 107 H 15 100 06/21/22 23:00 124/58 L 06/21/22 22:00 53 L 12 98 06/21/22 22:00 109/47 L 06/21/22 21:00 54 L 12 98 06/21/22 21:00 101/46 L 06/21/22 20:00 57 L 14 99 06/21/22 20:00 106/47 L 06/21/22 19:15 61 15 98 06/21/22 19:15 106/49 L 06/21/22 19:00 70 15 98 06/21/22 19:00 105/58 L 06/21/22 20:00 Nasal Cannula 2 PG Care Time/CCT Total # of Minutes Spent Total Time Spent with Patient: Total time spent is greater than 50% in coordination of care (as documented) at patient's floor/unit and/or counseling patient: Coding Level of Care Code 54497 SUB INP/OBS CARE 07/03MIN Diagnoses Septic shock A41.9; R65.21
[2022-06-22] MEDS: PIPERACILLIN/TAZOBACTAM 4.5 GM CI (over 4 hours) IV SCH ×3 (06:39→22:51)
[2022-06-22] MEDS: ICU ELECTROLYTE REPLACEMENT PROTOCOL SCH ×2 (06:39→18:02)
[2022-06-22] MEDS: MAGNESIUM SULFATE / D5W 1 GM/100 ML BAG IV SCH ×2 (07:59→10:07)
[2022-06-22] MEDS: POTASSIUM CHLORIDE / WTR 10 MEQ/100 ML PLCT IV SCH ×4 (08:02→11:31)
--- NOTE | 2022-06-22 09:30 | Fluoroscopy Report ---
FL ERCP biliary ductal CLINICAL HISTORY: ERCP TECHNIQUE: 8 views were obtained with the C-arm in the OR with the above procedure. Total fluoroscopy time was 21.5 seconds. Radiation dose was 5.24 mGy. Comparison: None available at the time of this dictation. FINDINGS/IMPRESSION: Intraoperative images were obtained of ERCP. Please correlate with intraoperative fluoroscopy and operative report. ACT 112: Negative or not required by law. Electronically signed by: Mt Méndez M.D. 06/22/2022 9:28 AM
--- NOTE | 2022-06-22 09:31 | Critical Care Progress Note ---
Date of Service June 22, 2022 Assessment & Plan (1) Acute cholecystitis: (2) Elevated liver enzymes: (3) Atrial fibrillation with rapid ventricular response: (4) Anticoagulant long-term use: (5) Diabetes mellitus: (6) Septic shock: Plan Impression: 86-year-old female presenting with acute cholangitis status post ERCP with sphincterotomy and stent placement. Case is complicated by use of anticoagulants for chronic atrial fibrillation as well as what appears to be tachybradycardia syndrome with sinus pauses. 24-hour events: Patient was admitted from the ER. She was taken directly to the OR for ERCP. Sphincterotomy and stent placement was conducted. The patient transitioned into atrial fibrillation. She also had sinus pauses. She is seen by cardiology. She taken to the [employer] Manager for temporary pacing wire and started on amiodarone. Overnight she converted to sinus rhythm. Blood cultures were positive for gram-negative rods Recommendations: 1. Neurologic: Continue to follow at this point time. Pain management as needed. 2. Cardiovascular: Septic shock due to cholangitis. Lactate has cleared. Judicious fluids with Normosol at 100 cc an hour. Patient is currently on amiodarone per cardiology. She does not appear required pacing and appears to have converted to sinus rhythm. Continue to follow. Defer management of the pacing wire to cardiology. Hold additional anticoagulation given sphincterotomy and questionable GI bleed 3. Pulmonary: Chest x-ray was clear. Continue oxygen as needed for saturations greater than or equal to 90%. 4. Renal: No acute issues. Continue to follow urine output. Keep Teixeira catheter until increasing mobilization. ICU electrolyte replacement protocol. 5. Endocrine: Glycemic control per protocol. 6. GI: Cholangitis. N.p.o. currently. Can advance diet if cardiology feels no procedures are imminent. General surgery consult reviewed and appreciated as well as GI consult. Trend LFTs. Antibiotics as noted below. Will require cholecystectomy at some point time. 7. ID: Cholangitis: Blood cultures positive for gram-negative rods, speciation and sensitivity pending. Day #2 Zosyn. Continue for now. 8. Heme-onc: Mild anemia which is stable. Continue to trend at this point time. No indication for transfusion or additional blood products. Holding Eliquis. Continue SCDs. Will start DVT chemical prophylaxis Patient appears to be responding appropriately to therapy. If we can get the pacing wire out, she can likely transfer out of the intensive care unit and critical care services will sign off. Total of 50 minutes time was spent managing and evaluating and cording care for this patient Admission and Anticipated Discharge Date Admission Date: June 21, 2022 Subjective Patient seen and examined. EMR reviewed. Discussed with critical care nurse at bedside. The patient is hemodynamically stable. She feels like she is making some progress. She denies any abdominal pain. No nausea or vomiting. She is converted to sinus rhythm. She remains on the amiodarone infusion. Does not appear to have required pacing. Review of Systems Review of Systems: All systems reviewed & are unremarkable except as noted in Subjective Physical Exam Eyes: PERRL Respiratory: normal respiratory effort; no respiratory distress and no labored breathing Cardiovascular: Rate/Rhythm: regular rate and regular rhythm; not tachycardic Gastrointestinal (Abdomen): Inspection/Auscultation: abdomen normal to inspection; abdomen not distended Percussion/Palpation: + abdomen tender and abdomen soft; no guarding, abdomen not rigid, no abdominal mass and no ascites Skin: no rashes, warm and dry Psychiatric: A+Ox3, euthymic affect Results & Data Results & Data ([facility]) Vital Signs (Past 12 Hours) Vital Signs Pulse Resp BP Pulse Ox 06/22/22 06:00 55 L 13 96 06/22/22 05:00 56 L 17 99 06/22/22 05:00 125/59 L 06/22/22 04:00 56 L 14 95 06/22/22 04:00 121/48 L 06/22/22 03:00 55 L 12 99 06/22/22 03:00 129/54 L 06/22/22 02:01 148/64 H 06/22/22 02:01 55 L 15 100 06/22/22 02:00 57 L 13 99 06/22/22 01:50 56 L 11 L 98 06/22/22 01:40 55 L 13 99 06/22/22 01:30 55 L 14 99 06/22/22 01:20 56 L 14 99 06/22/22 01:10 56 L 12 99 06/22/22 01:00 56 L 13 99 06/22/22 01:00 98/38 L 06/22/22 00:50 56 L 14 99 06/22/22 00:40 56 L 13 100 06/22/22 00:30 56 L 13 100 06/22/22 00:20 56 L 11 L 99 06/22/22 00:10 57 L 12 100 06/22/22 00:01 125/60 06/22/22 00:01 57 L 7 L 100 06/22/22 00:00 60 24 98 06/21/22 23:50 58 L 18 98 06/21/22 23:40 57 L 15 100 06/21/22 23:30 56 L 15 100 06/21/22 23:20 62 15 99 06/21/22 23:10 56 L 16 100 06/21/22 23:37 65 06/21/22 23:00 107 H 15 100 06/21/22 23:00 124/58 L 06/21/22 22:00 53 L 12 98 06/21/22 22:00 109/47 L Critical Care Results & Data Vital Signs (Past 12 Hours) Vital Signs Pulse Resp BP Pulse Ox 06/22/22 06:00 55 L 13 96 06/22/22 05:00 56 L 17 99 06/22/22 05:00 125/59 L 06/22/22 04:00 56 L 14 95 06/22/22 04:00 121/48 L 06/22/22 03:00 55 L 12 99 06/22/22 03:00 129/54 L 06/22/22 02:01 148/64 H 06/22/22 02:01 55 L 15 100 06/22/22 02:00 57 L 13 99 06/22/22 01:50 56 L 11 L 98 06/22/22 01:40 55 L 13 99 06/22/22 01:30 55 L 14 99 06/22/22 01:20 56 L 14 99 06/22/22 01:10 56 L 12 99 06/22/22 01:00 56 L 13 99 06/22/22 01:00 98/38 L 06/22/22 00:50 56 L 14 99 06/22/22 00:40 56 L 13 100 06/22/22 00:30 56 L 13 100 06/22/22 00:20 56 L 11 L 99 06/22/22 00:10 57 L 12 100 06/22/22 00:01 125/60 06/22/22 00:01 57 L 7 L 100 01/14/23 00:00 60 24 98 06/21/22 23:50 58 L 18 98 06/21/22 23:40 57 L 15 100 06/21/22 23:30 56 L 15 100 06/21/22 23:20 62 15 99 06/21/22 23:10 56 L 16 100 06/21/22 23:37 65 06/21/22 23:00 107 H 15 100 06/21/22 23:00 124/58 L 06/21/22 22:00 53 L 12 98 06/21/22 22:00 109/47 L Lab & Micro Results (Past 24 Hours) RBC 2.99 M/uL (3.93-5.22) L 06/22/22 WBC 8.77 K/ul (4.8-10.8) 06/22/22 Hgb 9.0 g/dl (12.0-16.0) L 06/22/22 Hct 27.6 % (34.1-44.9) L 06/22/22 MCV 92.3 fL (80.0-100.0) 06/22/22 MCH 30.1 pg (25.0-34.0) 06/22/22 MCHC 32.6 g/dL (32.0-36.0) 06/22/22 RDW Standard Deviation 49.6 fL (36.4-46.3) H 06/22/22 RDW Coefficient of Variation 14.6 % (11.5-14.5) H 06/22/22 Plt Count 144 K/uL (130-400) 06/22/22 MPV 10.3 fL (9.4-12.3) 06/22/22 Neutrophils (%) (Auto) 91.8 % 06/22/22 Lymphocytes (%) (Auto) 3.2 % 06/22/22 Monocytes # (Auto) 0.41 K/uL (0.24-0.82) 06/22/22 Eosinophils # (Auto) 0.00 K/uL (0-0.50) 06/22/22 Immature Granulocyte % (Auto) 0.2 % 06/22/22 Neutrophils # (Auto) 8.05 K/uL (1.4-6.5) H 06/22/22 Lymphocytes # (Auto) 0.28 K/uL (1.2-3.4) L 06/22/22 Monocytes # (Auto) 0.41 K/uL (0.24-0.82) 06/22/22 Eosinophils # (Auto) 0.00 K/uL (0-0.50) 06/22/22 Basophils # (Auto) 0.01 K/uL (0-0.2) 06/22/22 Immature Granulocyte # (Auto) 0.02 K/uL (0.00-0.02) 3 Na 142 mmol/L (136-145) 06/22/22 K 3.5 mmol/L (3.5-5.1) 06/22/22 Cl 107 mmol/L (98-107) 06/22/22 CO2 28 mmol/L (21-32) 06/22/22 Anion Gap 7 (3-11) 06/22/22 BUN 13 mg/dl (6-23) 06/22/22 Creatinine 0.73 mg/dl (0.6-1.2) 06/22/22 Estimated GFR ( Amer) 85.8 ml/min 06/22/22 Estimated GFR (Non-Af Amer) 74.1 ml/min 06/22/22 BUN/Creatinine Ratio 17.8 (10-20) 06/22/22 Glu 146 mg/dl (70-99(Fasting)) H 06/22/22 Ca 8.4 mg/dl (8.5-10.1) L 06/22/22 Phosphorus Level 2.9 mg/dl (2.5-4.9) 06/22/22 Total Bilirubin 1.0 mg/dl (0.2-1.0) 06/22/22 Direct Bilirubin 0.5 mg/dl (0-0.2) H 06/22/22 AST 339 U/L (13-39) H 06/22/22 ALT 384 U/L (7-52) H 06/22/22 Alkaline Phosphatase 126 U/L (34-104) H 06/22/22 TP 5.7 gm/dl (6.0-8.3) L 06/22/22 Albumin 3.2 gm/dl (3.4-5.0) L 06/22/22 Mg 1.9 mg/dl (1.7-2.4) 06/22/22 04:46 Calcium Level 8.4 mg/dl (8.5-10.1) L 06/22/22 04:46 Microbiology 06/21/22 07:46 Aerobic Blood Culture - Preliminary Blood Gram negative bacilli Anaerobic Blood Culture - Preliminary Gram negative bacilli 06/21/22 07:40 Aerobic Blood Culture - Preliminary Blood No growth in Aerobic bottle after 24 hours. Anaerobic Blood Culture - Preliminary Gram negative bacilli I & O Totals 24 Hours 06/21/22 06/22/22 06/23/22 06:59 06:59 06:59 Intake Total 3853.333 / 3853.333 100 / 100 Output Total 950 / 950 Balance 2903.333 / 2903.333 100 / 100 Cumulative 06/21/22 06:34 thru 06/22/22 09:02 Intake Total 3953.333 Output Total 950 Balance 3003.333 RT Ventilator Mngmt (Last Documented) Ventilator Ordered Settings Respiratory Rate 13 06/22/22 06:00 Ventilator - PT Measurements Respiratory Rate 13 Coding Level of Care Code 18334 SUB INP/OBS CARE 3/50MIN Diagnoses Acute cholecystitis K81.0 Elevated liver enzymes R74.8 Atrial fibrillation with rapid ventricular response I48.91 Anticoagulant long-term use Z79.01 Diabetes mellitus E11.9 Septic shock A41.9; R65.21
[2022-06-22] MEDS: INSULIN ASPART PER UNIT SC SCH ×4 (09:32→21:20)
--- NOTE | 2022-06-22 10:58 | XCELERA ---
[id number] \\[id number]
--- NOTE | 2022-06-22 11:19 | Hospitalist Progress Note ---
Date of Service June 22, 2022 Assessment & Plan (1) Sepsis due to Escherichia coli: Plan: Severe gram negative sepsis secondary to E Coli Likely source is cholangitis Patient fluid resuscitated Currently on IV Zosyn Lactate is now wnl (2) Acute cholecystitis: Plan: Acute cholecystitis with cholangitis and cholelithiasis Patient presents with abdominal pain Found to have suggestions of acute cholecystitis and cholangitis on CT Empirically started on IV Zosyn Cultures growing E Coli She is post ERCP with stent placement She will need removal of gall bladder in a couple of days Appreciate gen surg recs (3) Hematemesis: Plan: Complaints of coffee ground emesis Could be due to eosophageal tear and given her hx of cirrhosis, will need to r/o variceal bleed GI on consult, plan for EGD at a later date Hb currently stable On Protonix (4) Elevated liver enzymes: Plan: Likely due to gall stones and acute cholecystitis She is now post ERCP (5) Atrial fibrillation with rapid ventricular response: Plan: Found to be in rapid ventricular rate Currently on Diltiazem drip Rate control with Amiodarone drip On temporary pacer Appreciate cardiolgy recs (6) Diabetes mellitus: Plan: Blood glucose under good control patient currently NPO will institute insulin sliding scale, ICU diabetic protocol (7) 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 Physical Exam Physical Exam: The patient is awake, alert and oriented 3, well developed and well nourished, normocephalic and atraumatic, lying in bed and in no acute distress. HEENT--PERRL, EOMI, mucous membranes and oropharynx mildly dry Neck--supple. No JVD. No bruits. Thyroid normal, trachea midline, no adenopathy. Heart--normal S1 and S2. No murmurs, rubs or gallops. Lungs--clear bilaterally, no respiratory distress, no accessory muscle use. Abdomen--normal bowel sounds and soft. Mild epigastric and left sided abdominal pain Extremities--no cyanosis or clubbing. No edema. Dermatologic--normal skin turgor, normal color, no abnormal lymph nodes, no rash. Neurologic--cranial nerves II through XII grossly intact. Rheumatologic--normal range of motion. Psychiatric--normal affect. Results & Data Results & Data ([facility]) Vital Signs (Past 12 Hours) Vital Signs Temp Pulse Resp BP Pulse Ox O2 Del Method 06/22/22 09:00 54 L 14 94 Room Air 06/22/22 09:00 102/52 L 06/22/22 08:00 56 L 12 96 06/22/22 08:00 113/49 L 06/22/22 07:00 55 L 14 94 06/22/22 07:00 114/57 L 06/22/22 08:00 98.2 F 06/22/22 06:00 55 L 13 96 06/22/22 05:00 56 L 17 99 06/22/22 05:00 125/59 L 06/22/22 04:00 56 L 14 95 06/22/22 04:00 121/48 L 06/22/22 03:00 55 L 12 99 06/22/22 03:00 129/54 L 06/22/22 02:01 148/64 H 06/22/22 02:01 55 L 15 100 06/22/22 02:00 57 L 13 99 06/22/22 01:50 56 L 11 L 98 06/22/22 01:40 55 L 13 99 06/22/22 01:30 55 L 14 99 06/22/22 01:20 56 L 14 99 06/22/22 01:10 56 L 12 99 06/22/22 01:00 56 L 13 99 06/22/22 01:00 98/38 L 06/22/22 00:50 56 L 14 99 06/22/22 00:40 56 L 13 100 06/22/22 00:30 56 L 13 100 06/22/22 00:20 56 L 11 L 99 06/22/22 00:10 57 L 12 100 06/22/22 00:01 125/60 06/22/22 00:01 57 L 7 L 100 06/22/22 00:00 60 24 98 06/21/22 23:50 58 L 18 98 06/21/22 23:40 57 L 15 100 06/21/22 23:30 56 L 15 100 06/21/22 23:20 62 15 99 06/21/22 23:37 65 PG Care Time/CCT Total # of Minutes Spent Total Time Spent with Patient: Total time spent is greater than 50% in coordination of care (as documented) at patient's floor/unit and/or counseling patient: Coding Level of Care Code 58178 SUB INP/OBS CARE 2/35MIN Diagnoses Sepsis due to Escherichia coli A41.51 Acute cholecystitis K81.0 Hematemesis K92.0 Nausea presence: unspecified Elevated liver enzymes R74.8 Atrial fibrillation with rapid ventricular response I48.91 Diabetes mellitus E11.9 Squamous cell carcinoma of left upper extremity C44.629 Time Spent (min) 35 (1) Hematemesis Nausea presence: unspecified Qualified Code(s): K92.0 - Hematemesis
--- NOTE | 2022-06-22 11:20 | Cardiology Progress Note ---
Date of Service June 22, 2022 Assessment & Plan (1) Atrial fibrillation with rapid ventricular response: (2) Anticoagulant long-term use: (3) Acute cholecystitis: (4) Septic shock: Plan 1. Atrial fibrillation: She has a history of atrial fibrillation with rapid heart rate however the identified episodes have been very infrequent, the only episode prior to her current admission that I am aware of being documented was a decade ago. She was however not very symptomatic so she may have more frequent episodes than we realize. The degree of heart rate control as an outpatient during atrial fibrillation is unknown. She presented here in sinus rhythm but quickly reverted to atrial fibrillation with a rapid heart rate. She will need medications to control the heart rate and possibly the rhythm over the long run. I would consider long-term use of amiodarone to control her rhythm, although she does have significant LFT elevations which may be a contraindication. This will have to be monitored. Certainly for the time being but will simplify her management if we can maintain sinus rhythm. I would therefore continue amiodarone for now, she has been in sinus rhythm and sinus bradycardia since conversion last evening. 2. Anticoagulation: She had been on Eliquis on a long-term basis, at least as of April 2022 it remains on her medication list. Although it was thought that she was not taking it on presentation her daughter believes that she took it last on the evening of June 20, 2022. For the long run we will need to continue anticoagulation although for the short-term we we will need to hold Eliquis. If she has recurrent atrial fibrillation and her clinical status allows it we can add heparin until she recovers sufficiently to use Eliquis. As of this evening she will be off of Eliquis for at least 48 hours therefore should be stable for surgery. 3. Acute cholecystitis: Her presentation appears to be acute cholecystitis and she has been treated with stent placement. I believe cholecystectomy is considered. 4. Septic shock: She presented with septic shock but appears to be recovering well from that. 5. Bradycardia: She had severe bradycardia and required a temporary pacemaker which is now in place. On review of the rhythm strips this appears to be an abnormal sinus node recovery time, it appears that the atrial fibrillation terminates and it takes some time for rhythm to restart. This may have been exacerbated by her illness and diltiazem therapy. It is not clear to me whether she will need a permanent pacemaker, certainly she should not have one placed now while there is a risk of her having ongoing sepsis. Maintenance of sinus rhythm (with the use of amiodarone for now) will limit these pauses. I would continue to observe her rhythm and not plan permanent pacemaker unless we document further bradycardia or pauses. 6. Temporary pacemaker: At this point I would leave the temporary pacemaker in place even though she is not using it, I have however turned it off. If she has significant bradycardia or pauses we can easily turn it back on and then it is likely she will need a permanent pacemaker but if she does not need it over the next several days we can probably remove it safely and not plan a permanent pacemaker. I believe cholecystectomy might be planned in the near future, it might be prudent to leave the pacemaker in place through surgery even if she does not use it much. However I do not want to leave it in for more than about 3 days unless needed. Admission and Anticipated Discharge Date Admission Date: June 21, 2022 Subjective She seems to be doing well today, she is awake and alert. Her daughter is at the bedside. She has no cardiovascular complaints. Physical Exam Physical Exam: Constitutional: Alert, cooperative and in no distress. HEENT: Unremarkable. She has a transvenous pacer in her right IJ. Neck: No jugular venous distention, carotid pulses are normal and equal bilaterally without bruits. Pulmonary: Clear to auscultation bilaterally. Cardiac: Regular somewhat slow rhythm with a soft holosystolic murmur at the apex, no gallop or rub. Abdomen: Soft, nontender with normal bowel sounds. Extremities: No edema. Distal pulses intact. Neurologic: No focal findings. Gait was not tested. Skin: No rash, ecchymoses or petechiae. Results & Data ([facility]) Vital Signs (Past 12 Hours) Vital Signs Temp Pulse Resp BP Pulse Ox O2 Del Method 06/22/22 09:00 54 L 14 94 Room Air 06/22/22 09:00 102/52 L 06/22/22 08:00 56 L 12 96 06/22/22 08:00 113/49 L 06/22/22 07:00 55 L 14 94 06/22/22 07:00 114/57 L 06/22/22 08:00 36.8 C 06/22/22 06:00 55 L 13 96 06/22/22 05:00 56 L 17 99 06/22/22 05:00 125/59 L 06/22/22 04:00 56 L 14 95 06/22/22 04:00 121/48 L 06/22/22 03:00 55 L 12 99 06/22/22 03:00 129/54 L 06/22/22 02:01 148/64 H 06/22/22 02:01 55 L 15 100 06/22/22 02:00 57 L 13 99 06/22/22 01:50 56 L 11 L 98 06/22/22 01:40 55 L 13 99 06/22/22 01:30 55 L 14 99 06/22/22 01:20 56 L 14 99 06/22/22 01:10 56 L 12 99 06/22/22 01:00 56 L 13 99 06/22/22 01:00 98/38 L 06/22/22 00:50 56 L 14 99 06/22/22 00:40 56 L 13 100 06/22/22 00:30 56 L 13 100 06/22/22 00:20 56 L 11 L 99 06/22/22 00:10 57 L 12 100 06/22/22 00:01 125/60 06/22/22 00:01 57 L 7 L 100 06/22/22 00:00 60 24 98 06/21/22 23:50 58 L 18 98 06/21/22 23:40 57 L 15 100 06/21/22 23:30 56 L 15 100 06/21/22 23:20 62 15 99 06/21/22 23:37 65 Laboratory Results Cardiac Enzymes 06/22/22 Range/Units 04:46 AST 339 H (13-39) U/L CBC 06/22/22 Range/Units 04:54 WBC 8.77 (4.8-10.8) K/ul RBC 2.99 L (3.93-5.22) M/uL Hgb 9.0 L (12.0-16.0) g/dl Hct 27.6 L (34.1-44.9) % Plt Count 144 (130-400) K/uL Neut # (Auto) 8.05 H (1.4-6.5) K/uL Lymph # (Auto) 0.28 L (1.2-3.4) K/uL [place] # (Auto) 0.41 (0.24-0.82) K/uL Eos # (Auto) 0.00 (0-0.50) K/uL Baso # (Auto) 0.01 (0-0.2) K/uL Comprehensive Metabolic Panel 06/22/22 Range/Units 04:46 Sodium 142 (136-145) mmol/L Potassium 3.5 (3.5-5.1) mmol/L Chloride 107 (98-107) mmol/L Carbon Dioxide 28 (21-32) mmol/L BUN 13 (6-23) mg/dl Creatinine 0.73 (0.6-1.2) mg/dl Glucose 146 H (70-99(Fasting)) mg/dl Calcium 8.4 L (8.5-10.1) mg/dl Direct Bilirubin 0.5 H (0-0.2) mg/dl AST 339 H (13-39) U/L ALT 384 H (7-52) U/L Alkaline Phosphatase 126 H (34-104) U/L Total Protein 5.7 L (6.0-8.3) gm/dl Albumin 3.2 L (3.4-5.0) gm/dl Intake and Output 06/21/22 06/22/22 06/22/22 22:59 06:59 14:59 Intake Total 220 / 3853.333 1320.0 / 3853.333 300 / 300 Output Total 350 / 950 600 / 950 Balance -130 / 2903.333 720.0 / 2903.333 300 / 300 Intake: IV 220 / 3553.333 1320.0 / 3553.333 300 / 300 Amiodarone / D5w 150 mg In 100 100 / 100 ml @ 600 mls/hr IV NOW STA Rx#: [id number] Amiodarone / D5w 360 mg In 200 200 / 200 ml @ 1 MG/MIN 33.333 mls/hr IV ONE ONE Rx#:[id number] Magnesium Sulfate / D5w 1 gm In 100 / 100 100 ml @ 50 mls/hr IV Q2H [facility] Rx#:[id number] Normosol-R 1,000 ml @ 100 mls/ 1000 / 1000 hr IV .Q10H [facility] Rx#:[id number] Piperacillin/Tazobactam 4.5 gm 120 / 240.0 120.0 / 240.0 In Dextrose 5% 100 ml @ 30 mls/ hr IV Q8H [facility] Rx#:[id number] Potassium Chloride / Wtr 10 meq 200 / 200 In 100 ml @ 100 mls/hr IV Q1H [facility] Rx#:[id number] Output: Urine Amount (Catheter) 350 / 950 600 / 950 [place]ira/Indwelling 350 / 950 600 / 950 Other: Weight 73.1 kg 71.4 kg Weight Measurement Method Built in [facility] Built in [facility] Diagnostic Findings Telemetry: Atrial fibrillation until conversions to sinus rhythm and sinus bradycardia on the evening of June 21, 2022. Occasional very brief episodes of PAT overnight, the rhythm has been stable recently. No use of the pacemaker evident. Echocardiogram:An echocardiogram today shows aortic sclerosis without significant stenosis, mild to moderate mitral regurgitation and borderline left ventricular dilatation with normal left ventricular function and wall motion. PG Care Time/CCT Total # of Minutes Spent Total Time Spent with Patient: Total time spent is greater than 50% in coordination of care (as documented) at patient's floor/unit and/or counseling patient: Coding Level of Care Code 89236 SUB INP/OBS CARE 3/50MIN Diagnoses Atrial fibrillation with rapid ventricular response I48.91 Anticoagulant long-term use Z79.01 Acute cholecystitis K81.0 Septic shock A41.9; R65.21
[2022-06-22] MEDS: AMIODARONE / D5W 360 MG/200 ML BAG IV SCH ×2 (11:31→22:08)
[2022-06-22] MEDS: PANTOprazole 40 MG in SYRINGE 0 ML IV SCH (11:34)
--- NOTE | 2022-06-22 14:14 | Gastroenterology Progress Note ---
Date of Service June 22, 2022 Assessment & Plan (1) Sepsis due to Escherichia coli: (2) Acute cholecystitis: (3) Cholangitis: Plan: Liver panel improving No complaints of pain Surgery to proceed with Lap Belkys when acute issues resolve. Admission and Anticipated Discharge Date Admission Date: June 21, 2022 Subjective Feeling a little better today per daughter who is at bedside. Rylee denies any abdominal pain, and nursing reports no fevers, chills, or overt GI bleeding. Physical Exam Constitutional: WD/WN, vitals as above Respiratory: normal respiratory effort, lungs clear to auscultation Gastrointestinal (Abdomen): normal bowel sounds, soft, nontender, no hepatosplenomegaly Results & Data Results & Data ([facility]) Vital Signs (Past 12 Hours) Vital Signs Temp Pulse Resp BP Pulse Ox O2 Del Method 06/22/22 09:00 54 L 14 94 Room Air 06/22/22 09:00 102/52 L 06/22/22 08:00 56 L 12 96 06/22/22 08:00 113/49 L 06/22/22 07:00 55 L 14 94 06/22/22 07:00 114/57 L 06/22/22 08:00 36.8 C 06/22/22 06:00 55 L 13 96 06/22/22 05:00 56 L 17 99 06/22/22 05:00 125/59 L 06/22/22 04:00 56 L 14 95 06/22/22 04:00 121/48 L 06/22/22 03:00 55 L 12 99 06/22/22 03:00 129/54 L PG Care Time/CCT Total # of Minutes Spent Total Time Spent with Patient: Total time spent is greater than 50% in coordination of care (as documented) at patient's floor/unit and/or counseling patient: Coding Level of Care Code 07042 SUB INP/OBS CARE 3/50MIN Diagnoses Sepsis due to Escherichia coli A41.51 Acute cholecystitis K81.0 Cholangitis K83.09
[2022-06-22] MEDS ORDERED: ACETAMINOPHEN SUSP 325 MG/10.15 ML UDC PO PRN (17:22)
[2022-06-22] MEDS ORDERED: GLUCOSE 10 TAB/TUBE PO PRN (17:30)
[2022-06-22] MEDS ORDERED: CARBOHYDRATES FOR HYPOGLYCEMIA PO PRN (17:30)
[2022-06-22] MEDS ORDERED: GLUCOSE 40% GEL 15 GM TUBE PO PRN (17:30)
[2022-06-22] MEDS ORDERED: DEXTROSE 50% 50 ML SYRINGE IV PRN (17:30)
[2022-06-22] MEDS ORDERED: GLUCAGON FOR INJ 1 MG VIAL IM PRN (17:30)
[2022-06-23] MEDS ORDERED: ACETAMINOPHEN 1,000 MG/100 ML VIAL IV STA ×2 (01:43→20:32)
[2022-06-23] MEDS: NORMOSOL-R 1,000 ML IV SCH ×2 (02:51→07:57)
[2022-06-23 03:42] LABS: Basophils # (auto) 0.03 K/uL (0-0.2); Basophils % (auto) 0.4 %; Eosinophils # (auto) 0.05 K/uL (0-0.50); Eosinophils % (auto) 0.7 %; Hematocrit (blood only) 28.7 % (34.1-44.9); Hemoglobin 9.3 g/dl (12.0-16.0); Immature Granulocytes # (auto) 0.03 K/uL (0.00-0.02); Immature Granulocytes % (auto) 0.4 %; Lymphocytes # (auto) 0.41 K/uL (1.2-3.4); Lymphocytes % (auto) 5.5 %; Mean Corpuscular Hemoglobin 29.9 pg (25.0-34.0); Mean Corpuscular Hgb Conc 32.4 g/dL (32.0-36.0); Mean Corpuscular Volume 92.3 fL (80.0-100.0); Mean Platelet Volume 10.1 fL (9.4-12.3); Monocytes # (auto) 0.61 K/uL (0.24-0.82); Monocytes % (auto) 8.2 %; Neutrophils # (auto) 6.29 K/uL (1.4-6.5); Neutrophils % (auto) 84.8 %; Platelet Count 144 K/uL (130-400); RDW Coefficient of Variation 14.7 % (11.5-14.5); RDW Standard Deviation 49.8 fL (36.4-46.3); Red Blood Count 3.11 M/uL (3.93-5.22); White Blood Count 7.42 K/ul (4.8-10.8)
[2022-06-23 04:10] LABS: BUN Creatinine Ratio 13.3 (10-20); Calcium 8.1 mg/dl (8.5-10.1); Creatinine Clr Calc Pharmacy 46.3 ml/min; Est GFR (African American) 73.5 ml/min; Est GFR (Non-African American) 63.4 ml/min; Magnesium 2.3 mg/dl (1.7-2.4); Phosphorus 1.5 mg/dl (2.5-4.9); Potassium 4.1 mmol/L (3.5-5.1)
[2022-06-23] MEDS ORDERED: SODIUM PHOSPHATE 3 MMOL/1 ML INFUSION IV STA ×2 (04:29→08:04)
[2022-06-23] MEDS: ICU ELECTROLYTE REPLACEMENT PROTOCOL SCH ×2 (04:39→17:34)
[2022-06-23] MEDS ORDERED: SODIUM PHOSPHATE 21 MMOL in SODIUM CHLORIDE 0.9% 500 ML IV ONE (04:45)
[2022-06-23] MEDS: AMIODARONE / D5W 360 MG/200 ML BAG IV SCH ×3 (04:56→17:36)
[2022-06-23] MEDS: PIPERACILLIN/TAZOBACTAM 4.5 GM CI (over 4 hours) IV SCH (06:22)
--- NOTE | 2022-06-23 06:24 | Surgery Progress Note ---
Date of Service June 23, 2022 Assessment & Plan (1) Cholangitis: Plan: Patient with persistent fever and history of positive blood cultures with cholangitis Has stent in place, labs including LFTs are pending-stent can become occluded but normally we would see this with a rise And her LFTs Cannot completely rule out acute cholecystitis/necrotizing cholecystitis in this situation I do not really think additional studies may be helpful in this situation I do think she is at risk for surgery in this acute situation-would discuss with anesthesia Another option would be considering cholecystostomy tube however this would not be done here and she would require transfer We will check a.m. labs and discussed with other specialties Admission and Anticipated Discharge Date Admission Date: June 21, 2022 Subjective Patient is awake but confused Somewhat combative Fever to 38, history of positive blood cultures with cholangitis Does not complain of abdominal pain Review of Systems Review of Systems: All systems reviewed & are unremarkable except as noted in Subjective Physical Exam Physical Exam: Patient is very awake but she is somewhat combative and will not really allow me to examine her She does have restraints in place but does grasp my hands She is tachycardic and apparently in A. fib with rapid rate She has her temporary pacemaker in place Constitutional: well developed; no acute distress Eyes: + anicteric sclerae Respiratory: normal respiratory effort; no respiratory distress Cardiovascular: Rate/Rhythm: + tachycardic Gastrointestinal (Abdomen): Difficult to assess, patient uncooperative Musculoskeletal: Head/Neck/Chest: head atraumatic Skin: no rashes, warm and dry Neurologic: awake and + confused Psychiatric: Orientation: alert Results & Data ([facility]) Vital Signs (Past 12 Hours) Vital Signs Temp Pulse Resp BP Pulse Ox O2 Del Method 06/23/22 05:20 131 H 15 94 06/23/22 05:10 114 H 15 94 06/23/22 05:01 37.9 C H 149/89 H 06/23/22 05:01 153 H 18 93 Room Air 06/23/22 05:00 147 H 27 H 06/23/22 04:50 113 H 16 06/23/22 04:40 114 H 14 06/23/22 04:30 119 H 14 06/23/22 04:20 142 H 21 90 06/23/22 04:10 116 H 13 91 06/23/22 04:01 133/102 H 06/23/22 04:01 112 H 15 88 L 06/23/22 04:00 38 C H 134 H 26 H 133/102 H 91 06/23/22 03:00 115 H 15 93 06/23/22 03:00 149/103 H 06/23/22 02:00 38.3 C H 124 H 28 H 93 06/23/22 02:00 131/93 06/23/22 01:01 38 C H 130/86 06/23/22 01:01 114 H 19 90 06/23/22 01:00 109 H 17 94 06/23/22 00:00 125 H 18 96 06/23/22 00:00 150/123 H 06/23/22 00:00 60 06/22/22 23:00 37.6 C H 63 20 96 06/22/22 23:00 137/56 L 06/22/22 22:00 62 15 98 06/22/22 22:00 143/49 H 06/22/22 21:00 60 20 95 06/22/22 21:00 124/53 L 06/22/22 20:00 56 L 19 93 06/22/22 20:00 121/49 L 06/22/22 19:01 114/50 L 06/22/22 19:01 57 L 24 94 06/22/22 19:00 56 L 17 94 Room Air PG Care Time/CCT Total # of Minutes Spent Total Time Spent with Patient: Total time spent is greater than 50% in coordination of care (as documented) at patient's floor/unit and/or counseling patient: Coding Level of Care Code 88622 SUB INP/OBS CARE 2/35MIN Diagnoses Cholangitis K83.09
--- NOTE | 2022-06-23 07:54 | Cardiology Progress Note ---
Date of Service June 23, 2022 Assessment & Plan (1) Atrial fibrillation with rapid ventricular response: (2) Anticoagulant long-term use: (3) Acute cholecystitis: (4) Septic shock: Plan 1. Atrial fibrillation: She has a history of atrial fibrillation with rapid heart rate however the identified episodes have been very infrequent, the only episode prior to her current admission that I am aware of being documented was a decade ago. She was however not very symptomatic so she may have more frequent episodes than we realize. The degree of heart rate control as an outpatient during atrial fibrillation is unknown. She presented here in sinus rhythm but quickly reverted to atrial fibrillation with a rapid heart rate. On IV amiodarone she converted back to sinus rhythm and remained so until the evening of June 22, 2022 when she converted back to atrial fibrillation with a rapid heart rate. At that time she was on amiodarone but not on medications for heart rate control. She will need medications to control the heart rate and possibly the rhythm over the long run. I would consider long-term use of amiodarone to control her rhythm, although she does have significant LFT elevations which may be a contraindication. This will have to be monitored. Certainly for the time being but will simplify her management if we can maintain sinus rhythm. I would therefore continue amiodarone for now. I am going to give her another bolus to try to convert her to sinus rhythm while the pacemaker is still in place. 2. Anticoagulation: She had been on Eliquis on a long-term basis, at least as of April 2022 it remains on her medication list. Although it was thought that she was not taking it on presentation her daughter believes that she took it last on the evening of June 20, 2022. For the long run we will need to continue anticoagulation although for the short-term we we will need to hold Eliquis. With recurrent atrial fibrillation we can add heparin until she recovers sufficiently to use Eliquis, although throughout today it is probably not an issue since it would be less than 24 hours and hopefully she will convert back to sinus. She has been off of Eliquis for more than 48 hours therefore should be stable for surgery if indicated. 3. Acute cholecystitis: Her presentation appears to be acute cholecystitis and she has been treated with stent placement. I believe cholecystectomy is considered but possibly in the future. 4. Septic shock: She presented with septic shock but appears to be recovering well from that. 5. Bradycardia: She had severe bradycardia and required a temporary pacemaker which is now in place. On review of the rhythm strips this appears to be an abnormal sinus node recovery time, it appears that the atrial fibrillation terminates and it takes some time for rhythm to restart. This may have been exacerbated by her illness and diltiazem therapy. It is not clear to me whether she will need a permanent pacemaker, certainly she should not have one placed now while there is a risk of her having ongoing sepsis. Maintenance of sinus rhythm (with the use of amiodarone for now) will limit these pauses. Now we are forced to give her rate controlling medications, will need to monitor for recurrent pauses. I would continue to observe her rhythm and not plan permanent pacemaker unless we document further bradycardia or pauses. 6. Temporary pacemaker: At this point I would leave the temporary pacemaker in place even though she is not using it, I have however turned it off. If she has significant bradycardia or pauses we can easily turn it back on and then it is likely she will need a permanent pacemaker but if she does not need it over the next several days we can probably remove it safely and not plan a permanent pacemaker. Admission and Anticipated Discharge Date Admission Date: June 21, 2022 Subjective She is quite confused this morning, she is awake and alert and talkative although she is understandable she is not making much sense. She also went back into atrial fibrillation last evening, the rate has been somewhat fast over the period she did get 5 mg of metoprolol this morning and may have slowed her rate somewhat but still elevated. She has not had any pauses noted. Physical Exam Physical Exam: Constitutional: Alert and in no distress but quite confused this morning. HEENT: Unremarkable Neck: No jugular venous distention, carotid pulses are irregular but otherwise normal and equal bilaterally without bruits. Pulmonary: Clear to auscultation bilaterally. Cardiac: Irregular rapid rhythm with no murmur, gallop or rub. Abdomen: Soft, nontender with normal bowel sounds. Extremities: No edema. Distal pulses intact. Neurologic: No focal findings. Gait was not tested . Skin: No rash, ecchymoses or petechiae. Results & Data ([facility]) Vital Signs (Past 12 Hours) Vital Signs Temp Pulse Resp BP Pulse Ox O2 Del Method 06/23/22 05:20 131 H 15 94 01/15/23 05:10 114 H 15 94 06/23/22 05:01 37.9 C H 149/89 H 06/23/22 05:01 153 H 18 93 Room Air 06/23/22 05:00 147 H 27 H 06/23/22 04:50 113 H 16 06/23/22 04:40 114 H 14 06/23/22 04:30 119 H 14 06/23/22 04:20 142 H 21 90 06/23/22 04:10 116 H 13 91 06/23/22 04:01 133/102 H 06/23/22 04:01 112 H 15 88 L 06/23/22 04:00 38 C H 134 H 26 H 133/102 H 91 06/23/22 03:00 115 H 15 93 06/23/22 03:00 149/103 H 06/23/22 02:00 38.3 C H 124 H 28 H 93 06/23/22 02:00 131/93 06/23/22 01:01 38 C H 130/86 06/23/22 01:01 114 H 19 90 06/23/22 01:00 109 H 17 94 06/23/22 00:00 125 H 18 96 06/23/22 00:00 150/123 H 06/23/22 00:00 60 06/22/22 23:00 37.6 C H 63 20 96 06/22/22 23:00 137/56 L 06/22/22 22:00 62 15 98 06/22/22 22:00 143/49 H 06/22/22 21:00 60 20 95 06/22/22 21:00 124/53 L 06/22/22 20:00 56 L 19 93 06/22/22 20:00 121/49 L Laboratory Results CBC 06/23/22 Range/Units 03:29 WBC 7.42 (4.8-10.8) K/ul RBC 3.11 L (3.93-5.22) M/uL Hgb 9.3 L (12.0-16.0) g/dl Hct 28.7 L (34.1-44.9) % Plt Count 144 (130-400) K/uL Neut # (Auto) 6.29 (1.4-6.5) K/uL Lymph # (Auto) 0.41 L (1.2-3.4) K/uL [place] # (Auto) 0.61 (0.24-0.82) K/uL Eos # (Auto) 0.05 (0-0.50) K/uL Baso # (Auto) 0.03 (0-0.2) K/uL Comprehensive Metabolic Panel 06/23/22 Range/Units 03:29 Sodium 141 (136-145) mmol/L Potassium 4.1 (3.5-5.1) mmol/L Chloride 107 (98-107) mmol/L Carbon Dioxide 28 (21-32) mmol/L BUN 11 (6-23) mg/dl Creatinine 0.83 (0.6-1.2) mg/dl Glucose 135 H (70-99(Fasting)) mg/dl Calcium 8.1 L (8.5-10.1) mg/dl Intake and Output 06/22/22 06/23/22 06/23/22 22:59 06:59 14:59 Intake Total 497.298 / 3753.581 1416.283 / 3753.581 Output Total 350 / 5 107 / 2024 Balance 147.298 / 1728.581 341.283 / 1728.581 Intake: IV 497.298 / 3633.581 1416.283 / 3633.581 Acetaminophen 1,000 mg In 100 100 / 100 ml @ 400 mls/hr IV NOW STA Rx#: [id number] Amiodarone / D5w 360 mg In 200 177.298 / 573.581 196.283 / 573.581 ml @ 1 MG/MIN 33.333 mls/hr IV .Q6H ROSARIO Rx#:[id number] Magnesium Sulfate / D5w 1 gm In 100 / 200 100 ml @ 50 mls/hr IV Q2H ROSARIO Rx#:[id number] Normosol-R 1,000 ml @ 100 mls/ 1000 / 2000 hr IV .Q10H ROSARIO Rx#:[id number] Piperacillin/Tazobactam 4.5 gm 120 / 360 120 / 360 In Dextrose 5% 100 ml @ 30 mls/ hr IV Q8H ROSARIO Rx#:[id number] Potassium Chloride / Wtr 10 meq 100 / 400 In 100 ml @ 100 mls/hr IV Q1H ROSARIO Rx#:[id number] Output: Urine Amount (Catheter) 2024 Teixeira/Indwelling 2024 Other: Weight 74.1 kg Weight Measurement Method Built in [facility] Diagnostic Findings Telemetry: Sinus rhythm until around 11:30 PM on June 22, 2022 when she converted to atrial fibrillation with a heart rate of around 130 bpm on average. This remained overnight, this morning after 5 mg metoprolol her rate is better. PG Care Time/CCT Total # of Minutes Spent Total Time Spent with Patient: Total time spent is greater than 50% in coordination of care (as documented) at patient's floor/unit and/or counseling patient: Coding Level of Care Code 48320 SUB INP/OBS CARE 3/50MIN Diagnoses Atrial fibrillation with rapid ventricular response I48.91 Anticoagulant long-term use Z79.01 Acute cholecystitis K81.0 Septic shock A41.9; R65.21 Time Spent (min) 65
[2022-06-23] MEDS ORDERED: METOPROLOL TARTRATE 1 MG/ML VIAL IV SCH (08:00)
[2022-06-23] MEDS: INSULIN ASPART PER UNIT SC SCH ×4 (08:04→19:58)
[2022-06-23] MEDS ORDERED: OLANZapine 10 MG/2.1 ML SDV IM PRN ×2 (08:04→19:45)
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
[2022-06-23] MEDS ORDERED: METOPROLOL TARTRATE 1 MG/ML VIAL IV STA (08:25)
[2022-06-23] MEDS ORDERED: 0.2 MICRON FILTER SET 1 EACH IV ONE (08:42)
[2022-06-23] MEDS ORDERED: AMIODARONE / D5W 150 MG/100 ML BAG IV STA (08:42)
[2022-06-23] MEDS: PANTOprazole 40 MG in SYRINGE 0 ML IV SCH (08:56)
[2022-06-23 10:00] LABS: Albumin Level 3.1 gm/dl (3.4-5.0); Bilirubin Direct 0.3 mg/dl (0-0.2); Bilirubin,Total 0.8 mg/dl (0.2-1.0); Total Protein 5.8 gm/dl (6.0-8.3)
[2022-06-23] MEDS ORDERED: SODIUM PHOSPHATE 9 MMOL in SODIUM CHLORIDE 0.9% 250 ML IV ONE (10:30)
--- NOTE | 2022-06-23 11:18 | Hospitalist Progress Note ---
Date of Service June 23, 2022 Assessment & Plan (1) Sepsis due to Escherichia coli: Plan: Severe gram negative sepsis secondary to E Coli Likely source is cholangitis/ cholecystitis Improving Currently on IV Unasyn Lactate is now wnl (2) Acute cholecystitis: Plan: Acute cholecystitis with cholangitis and cholelithiasis Patient presents with abdominal pain Found to have suggestions of acute cholecystitis and cholangitis on CT Initially Empirically started on IV Zosyn, now on Unasyn Cultures growing E Coli She is post ERCP with stent placement She will need removal of gall bladder at some point after her acute illness Appreciate gen surg recs (3) Hematemesis: Plan: Complaints of coffee ground emesis Could be due to eosophageal tear and given her hx of cirrhosis, will need to r/o variceal bleed GI on consult, plan for EGD at a later date Hb currently stable On Protonix (4) Elevated liver enzymes: Plan: Likely due to gall stones and acute cholecystitis She is now post ERCP Trend enzymes (5) Atrial fibrillation with rapid ventricular response: Plan: Found to be in rapid ventricular rate Currently on Rate control with Amiodarone drip and metoprolol Patient flips in and out of sinus rhyhtm Appreciate cardiolgy recs (6) Bradycardia: Plan: Patient became bradycardic during ERCP, had temporary pacemaker in place, currently turned off patient may need permanent pacemaker in the future appreciate cardiology (7) Diabetes mellitus: Plan: Blood glucose under good control will institute insulin sliding scale, ICU diabetic protocol (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 Daughters by the bedside Review of Systems Review of Systems: unreliable due to confusion Physical Exam Physical Exam: The patient is awake, alert ,confused HEENT--PERRL, EOMI, mucous membranes and oropharynx mildly dry Neck--supple. No JVD. No bruits. Thyroid normal, trachea midline, no adenopathy. Heart--normal S1 and S2. No murmurs, rubs or gallops. Lungs--clear bilaterally, no respiratory distress, no accessory muscle use. Abdomen--normal bowel sounds and soft. Mild epigastric and left sided abdominal pain Extremities--no cyanosis or clubbing. No edema. Dermatologic--normal skin turgor, normal color, no abnormal lymph nodes, no rash. Neurologic--cranial nerves II through XII grossly intact. Rheumatologic--normal range of motion. Psychiatric--normal affect. Results & Data Results & Data ([facility]) Vital Signs (Past 12 Hours) Vital Signs Temp Pulse Resp BP Pulse Ox O2 Del Method 06/23/22 08:32 112 H 17 92 06/23/22 08:32 131/82 06/23/22 08:00 119 H 23 92 06/23/22 08:00 129/85 06/23/22 07:52 129/95 06/23/22 07:52 118 H 15 92 06/23/22 07:01 125 H 14 92 06/23/22 07:01 121/77 06/23/22 07:00 123 H 15 93 06/23/22 06:45 131 H 20 90 06/23/22 08:31 103 H 131/82 06/23/22 08:00 116 H 06/23/22 08:00 116 H 129/95 06/23/22 05:20 131 H 15 94 06/23/22 05:10 114 H 15 94 06/23/22 05:01 100.2 F H 149/89 H 06/23/22 05:01 153 H 18 93 Room Air 06/23/22 05:00 147 H 27 H 06/23/22 04:50 113 H 16 06/23/22 04:40 114 H 14 06/23/22 04:30 119 H 14 06/23/22 04:20 142 H 21 90 06/23/22 04:10 116 H 13 91 06/23/22 04:01 133/102 H 06/23/22 04:01 112 H 15 88 L 06/23/22 04:00 100.4 F H 134 H 26 H 133/102 H 91 06/23/22 03:00 115 H 15 93 06/23/22 03:00 149/103 H 06/23/22 02:00 100.9 F H 124 H 28 H 93 06/23/22 02:00 131/93 06/23/22 01:01 100.4 F H 130/86 06/23/22 01:01 114 H 19 90 06/23/22 01:00 109 H 17 94 06/23/22 00:00 125 H 18 96 06/23/22 00:00 150/123 H 06/23/22 00:00 60 PG Care Time/CCT Total # of Minutes Spent Total Time Spent with Patient: Total time spent is greater than 50% in coordination of care (as documented) at patient's floor/unit and/or counseling patient: Coding Level of Care Code 22295 SUB INP/OBS CARE 2/35MIN Diagnoses Sepsis due to Escherichia coli A41.51 Acute cholecystitis K81.0 Hematemesis K92.0 Nausea presence: unspecified Elevated liver enzymes R74.8 Atrial fibrillation with rapid ventricular response I48.91 Bradycardia R00.1 Diabetes mellitus E11.9 Squamous cell carcinoma of left upper extremity C44.629 Time Spent (min) 35 (1) Hematemesis Nausea presence: unspecified Qualified Code(s): K92.0 - Hematemesis
[2022-06-23] MEDS: ACETAMINOPHEN 325 MG TAB PO PRN ×2 (11:52→19:57)
[2022-06-23] MEDS: METOPROLOL TARTRATE 25 MG TAB PO SCH ×3 (11:52→21:52)
[2022-06-23] MEDS: AMPICILLIN/SULBACTAM SOD 3,000 MG in 0.9 % SODIUM CHLORIDE 100 ML IV SCH ×2 (13:12→19:00)
[2022-06-23] MEDS ORDERED: ATROPINE SULFATE 0.1 MG/ML 10ML SYR IV PRN (15:13)
--- NOTE | 2022-06-23 21:08 | Electrocardiogram Report ---
Test Reason : Blood Pressure : / mmHG Vent. Rate : 070 BPM Atrial Rate : 070 BPM P-R Int : 000 ms QRS Dur : 142 ms QT Int : 476 ms P-R-T Axes : 000 038 -36 degrees QTc Int : 514 ms Ventricular-paced rhythm Abnormal ECG When compared with ECG of 21-JUN-2022 09:01, Electronic ventricular pacemaker has replaced Atrial fibrillation Vent. rate has decreased BY 70 BPM Confirmed by Jorge Diaz ([id number]) on 06/23/2022 9:08:36 PM Referred By: Robert Wilson [place] Confirmed By:Jorge Diaz
--- NOTE | 2022-06-23 21:24 | Electrocardiogram Report ---
Test Reason : Blood Pressure : / mmHG Vent. Rate : 056 BPM Atrial Rate : 056 BPM P-R Int : 192 ms QRS Dur : 080 ms QT Int : 482 ms P-R-T Axes : 072 011 034 degrees QTc Int : 465 ms Sinus bradycardia Otherwise normal ECG When compared with ECG of 22-JUN-2022 06:15, (unconfirmed) No significant change was found Confirmed by Jorge Diaz ([id number]) on 06/23/2022 9:24:26 PM Referred By: Robert Wilson [place] Confirmed By:Jorge Diaz
[2022-06-24] MEDS: AMPICILLIN/SULBACTAM SOD 3,000 MG in 0.9 % SODIUM CHLORIDE 100 ML IV SCH ×2 (01:00→05:39)
[2022-06-24] MEDS: AMIODARONE / D5W 360 MG/200 ML BAG IV SCH ×2 (01:14→08:23)
[2022-06-24 07:08] LABS: Albumin Level 3.3 gm/dl (3.4-5.0); BUN Creatinine Ratio 15.6 (10-20); Bilirubin Direct 0.2 mg/dl (0-0.2); Bilirubin,Total 0.9 mg/dl (0.2-1.0); Calcium 7.9 mg/dl (8.5-10.1); Est GFR (Non-African American) 80.2 ml/min; Magnesium 2.1 mg/dl (1.7-2.4); Phosphorus 2.1 mg/dl (2.5-4.9); Potassium 3.8 mmol/L (3.5-5.1); Total Protein 5.9 gm/dl (6.0-8.3)
[2022-06-24 07:37] LABS: Basophils # (auto) 0.01 K/uL (0-0.2); Basophils % (auto) 0.2 %; Hematocrit (blood only) 32.2 % (34.1-44.9); Hemoglobin 10.4 g/dl (12.0-16.0); Immature Granulocytes # (auto) 0.03 K/uL (0.00-0.02); Immature Granulocytes % (auto) 0.5 %; Lymphocytes # (auto) 0.55 K/uL (1.2-3.4); Lymphocytes % (auto) 8.3 %; Mean Corpuscular Hemoglobin 30.4 pg (25.0-34.0); Mean Corpuscular Hgb Conc 32.3 g/dL (32.0-36.0); Mean Corpuscular Volume 94.2 fL (80.0-100.0); Mean Platelet Volume 10.7 fL (9.4-12.3); Monocytes # (auto) 0.58 K/uL (0.24-0.82); Monocytes % (auto) 8.8 %; Neutrophils # (auto) 5.45 K/uL (1.4-6.5); Neutrophils % (auto) 82.2 %; Platelet Count 153 K/uL (130-400); RDW Coefficient of Variation 14.9 % (11.5-14.5); RDW Standard Deviation 51.7 fL (36.4-46.3); Red Blood Count 3.42 M/uL (3.93-5.22); White Blood Count 6.62 K/ul (4.8-10.8)
[2022-06-24] MEDS: INSULIN ASPART PER UNIT SC SCH (08:29)
--- NOTE | 2022-06-24 08:54 | Ultrasound Report ---
US gallbladder HISTORY: 86 years-old Female Assess for distention and inflammation acute right upper quadrant abdom inal pain COMPARISON: CT abdomen and pelvis June 21, 2022 TECHNIQUE: Multiple real-time sonographic images of the abdominal right upper quadrant were obtained assessing grayscale appearance and color flow FINDINGS: The study is limited secondary to patient lack of cooperation throughout the study. Unremarkable appe arance of the visualized pancreas. Unremarkable appearance of the liver. Gallbladder wall measures up to 3 mm. Layering stones within the gallbladder lumen are noted. Negative sonographic Carrear's sign. No definite pericholecystic fluid identified. IMPRESSION: 1. Cholelithiasis with the gallbladder wall measuring within the upper limits of normal. No perichole cystic fluid identified to suggest acute cholecystitis. The sonographic Carrera sign was negative. Fin dings may be correlated with nuclear medicine hepatobiliary scan if of further clinical concern. 2. No biliary ductal dilation. ACT 112: Negative or not required by law. The above report was generated using voice recognition software. It may contain grammatical, syntax o r spelling errors. Electronically signed by: Sammy Moore M.D. 06/24/2022 8:53 AM
--- NOTE | 2022-06-24 09:20 | Communication Note ---
Date of Service: June 24, 2022 Pt was seen, chart reviewed. Case discussed with Dr. Schulz, Dr Magana and Rylee's grand-daughter. Persistent fevers and positive blood cultures. ABD US reviewed. LFTs decreasing. Recommend transfer to tertiary center for IR evaluation. Thank you for allowing us to participate in the care of this patient. Please call with any acute changes, questions or concerns. Please see addendum below with additional recommendation from my supervising physician.
[2022-06-24] MEDS: METOPROLOL TARTRATE 25 MG TAB PO SCH ×2 (09:21→09:29)
--- NOTE | 2022-06-24 09:27 | Surgery Progress Note ---
Date of Service June 24, 2022 Assessment & Plan (1) Cholangitis: Plan: Patient is very high risk for any procedures I cannot prove that she does not have developing necrotizing cholecystitis I do not think she would tolerate a HIDA scan and I am unsure if this will really help I believe she needs a cholecystostomy tube to decompress her gallbladder Unfortunately this requires transfer and this should likely be to a tertiary care center because of her cardiac issues I have discussed this with the GI team and the medical team The medical team is beginning transfer to [facility] Admission and Anticipated Discharge Date Admission Date: June 21, 2022 Subjective Patient continues with persistent fever Her liver functions are slightly better She appears flushed She continues to have tacky bradycardia problems and her current heart rate is 130 I did repeat her ultrasound which does show a thickened gallbladder but no mario cholecystic fluid Review of Systems Review of Systems: All systems reviewed & are unremarkable except as noted in HPI & below Physical Exam Physical Exam: Patient is somewhat sedated and she her cheeks appear flushed She has very mild distention with no tenderness in the upper quadrant Results & Data ([facility]) Vital Signs (Past 12 Hours) Vital Signs Temp Pulse Pulse Resp BP BP Pulse Ox 06/24/22 08:00 38.6 C H 63 22 146/64 H 89 L 06/24/22 08:00 06/24/22 08:00 63 06/24/22 03:59 38.7 C H 67 22 155/62 H 93 06/24/22 00:00 78 06/23/22 23:28 38 C H 67 23 135/72 93 06/23/22 21:31 O2 Del Method 06/24/22 08:00 Room Air 06/24/22 08:00 Room Air 06/24/22 08:00 06/24/22 03:59 Room Air 06/24/22 00:00 06/23/22 23:28 Room Air 06/23/22 21:31 Room Air PG Care Time/CCT Total # of Minutes Spent Total Time Spent with Patient: Total time spent is greater than 50% in coordination of care (as documented) at patient's floor/unit and/or counseling patient: Coding Level of Care Code 64242 SUB INP/OBS CARE 2/35MIN Diagnoses Cholangitis K83.09
[2022-06-24] MEDS ORDERED: METOPROLOL TARTRATE 1 MG/ML VIAL IV STA (09:29)
[2022-06-24] MEDS ORDERED: METOPROLOL TARTRATE 1 MG/ML VIAL IV ONE (09:31)
[2022-06-24] MEDS: PANTOprazole 40 MG in SYRINGE 0 ML IV SCH (11:24)
--- NOTE | 2022-06-24 15:46 | Discharge Summary ---
Date of Service June 24, 2022 Admission HPI Per Admitting Provider This is an 86 YO [place] resident with a hx of Squamous cell ca of the skin, s/p resection, Afib on anticoagulant who was brought from her facilty after she had a coffee round emesis and abdominal pain. She is a poor historian and most of the history was obtained from her daughter at bedside and also from the ED Doctor. Upon further evaluation at the ED, her Liver enzymes were elevated, T cristopher, CT abdomen and pelvis also showed evidence of gall stones, colitis. Blood cultures were obtained and she was empirically started on IV Zosyn. General surgery and Gastroenterology have been consulted. She will be admitted to the hospital for further mgt Principal Diagnosis sepsis, secondary to cholangitis Discharge Exam The patient is awake, alert ,confused HEENT--PERRL, EOMI, mucous membranes and oropharynx mildly dry Neck--supple. No JVD. No bruits. Thyroid normal, trachea midline, no adenopathy. Heart--normal S1 and S2. No murmurs, rubs or gallops. Lungs--clear bilaterally, no respiratory distress, no accessory muscle use. Abdomen--normal bowel sounds and soft. Mild epigastric and left sided abdominal pain Extremities--no cyanosis or clubbing. No edema. Dermatologic--normal skin turgor, normal color, no abnormal lymph nodes, no rash. Neurologic--cranial nerves II through XII grossly intact. Rheumatologic--normal range of motion. Psychiatric--normal affect. Discharge Data Allergies Allergy/AdvReac Type Severity Reaction Status Date / Time bee venom protein (honey bee) Allergy Severe Swelling Verified 06/11/22 09:45 of Lip/Tongue/Throat Consultations 06/21/22 09:00 Consult General Surgery Stat 06/21/22 09:05 ED Decision to Admit Stat 06/21/22 09:29 ED Decision to Admit Stat 06/21/22 13:01 Consult Electrical Unit Rebuilder Routine 06/21/22 14:20 Consult Cardiology Routine Consult Gastroenterology Routine 06/21/22 14:41 Consult Cardiology Routine Procedures Performed Operation Date: 06/21/22 08:35 Actual Procedures p Endoscopic Retrograde Cholangiopancreato with stent placement. - Zoltan Andino DO Operation Date: 06/21/22 14:30 Actual Procedures p Ins/RemTemporary Transvenous Pacer - Clifford Ortega MD, PhD s Ultrasound Vascular Access - Clifford Ortega MD, PhD Ordered Studies 06/21/22 [place] ERCP biliary ductal Routine 06/21/22 06:52 CT abd pelvis IV con only Stat 06/21/22 11:50 US upper EUS PACS images Routine 06/21/22 14:08 CL Cath Imgs for PACS use only Stat 06/24/22 06:46 US gallbladder Urgent Hospital Course (1) Sepsis due to Escherichia coli: Severe gram negative sepsis secondary to E Coli Likely source is cholangitis/ cholecystitis Improving Currently on IV Unasyn Lactate is now wnl (2) Acute cholecystitis: Acute cholecystitis with cholangitis and cholelithiasis Patient presents with abdominal pain Found to have suggestions of acute cholecystitis and cholangitis on CT Initially Empirically started on IV Zosyn, now on Unasyn Cultures growing E Coli She is post ERCP with stent placement She will need removal of gall bladder at some point after her acute illness Appreciate gen surg recs (3) Hematemesis: Complaints of coffee ground emesis Could be due to eosophageal tear and given her hx of cirrhosis, will need to r/o variceal bleed GI on consult, plan for EGD at a later date Hb currently stable On Protonix (4) Elevated liver enzymes: Likely due to gall stones and acute cholecystitis She is now post ERCP Trend enzymes (5) Atrial fibrillation with rapid ventricular response: Found to be in rapid ventricular rate Currently on Rate control with Amiodarone drip and metoprolol Patient flips in and out of sinus rhyhtm Appreciate cardiolgy recs (6) Bradycardia: Patient became bradycardic during ERCP, had temporary pacemaker in place, currently turned off patient may need permanent pacemaker in the future appreciate cardiology (7) Diabetes mellitus: Blood glucose under good control will institute insulin sliding scale, ICU diabetic protocol (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 (9) Encephalopathy: probably Metabolic encephalopathy Although patient has some baseline dementia, however, worsening in mentation could be due to sepsis Plan Patient stable for transfer out of ICU when pacemaker leads have been removed Full Code DVT SCD Total Time Total Time Spent Total Time Spent (In Minutes): 35 Discharge Plan Discharge Items Patient Disposition: Transfer Acute Care Hospital Reason For Visit: ABDOMINAL PAIN Discharge Diagnosis: sepsis, cholangitis, afib wrvr Condition on Discharge: Fair Activity: Resume your previous activity Non-emergency contact: Primary Care Provider Call non-emergency contact if: you have any medication questions Follow-up/Referrals: [facility] [Primary Care Provider] - Diet: Regular Addtl Attending Provider Instructions: please make appointment to follow up with your PCP Pending Studies at Discharge: No Stand-Alone Forms: My [facility] Skilled Items Patient informed of condition?: Yes DNR: No Discharge Level of Care: Other Communicable Disease: No Discharge Prognosis: Other Lines: Peripheral IV Urinary Catheter: Yes Medications and DC Order Prescriptions: Continued blood sugar diagnostic Strip See Rx Instructions .ROUTE .COMPLEX Qty: 150 5RF Dose Instruction: TEST ONCE OR TWICE A DAY DIRECTED. Rx Instructions: TEST ONCE OR TWICE A DAY DIRECTED. metoprolol tartrate 25 mg tablet 25 mg PO BID Qty: 180 3RF metformin 750 mg tablet extended release 24 hr 750 mg PO BID Qty: 180 3RF simvastatin 40 mg tablet 40 mg PO QPM Qty: 90 3RF furosemide 20 mg tablet 20 mg PO DAILY PRN (Reason: edema) Qty: 30 5RF nitrofurantoin macrocrystal 100 mg capsule 100 mg PO DAILY Qty: 90 1RF Rx Instructions: must administer with a meal/food sitagliptin phosphate 50 mg tablet 50 mg PO QAM Qty: 90 3RF escitalopram oxalate [Lexapro] 5 mg tablet 5 mg PO DAILY Qty: 90 3RF vitamins A,C,L-pwsp-msdeft 1 tab PO BID Label Comments: 1 tablet PO BID; ferrous sulfate 1 dose PO QAM Label Comments: 1 TABLET DAILY PO Rx Instructions: 1 TABLET DAILY PO anastrozole See Rx Instructions PO .COMPLEX Rx Instructions: 1 TAB PO DAILY (DME) lancets [Lite Touch Lancets] 28 gauge misc See Dose Instructions .ROUTE .MEDSUPPLY Qty: 25 Rx Instructions: As directed acetaminophen 650 mg Tablet Extended Release 650 mg PO Q6H PRN (Reason: Pain) cyanocobalamin (vitamin B-12) 1,000 mcg/mL Solution 1,000 mcg IM MONTHLY cranberry 500 mg Capsule 500 mg PO DAILY Rx Instructions: administer with meals calcium carbonate-vitamin D3 500 mg-3.125 mcg (125 unit) Tablet 1 tab PO DAILY Calmoseptine 0.44-20.6 % Ointment In Packet 1 applic topical DIRECTED PRN (Reason: Rash) Antacid (calcium carb-mag hyd) 1,000-200 mg Tablet,Chewable 2 tab PO DAILY PRN (Reason: Acid Reflux) Discharge Orders: Discharge Order (Routine); Ordered 06/24/22 Ordered By: Savanah Mayberry Admission Data Admit Date/Time: 06/21/22 09:31 Attending Provider: Savanah Mayberry Admit Provider: Savanah Mayberry [facility] Other Providers: Jonatan Magana ; Jong Weldon ; Savanah Mayberry ; Brian Wilde ; Jorge Diaz ; Zoltan Andino ; Clifford Ortega Other Interventions: Discharge Summary Assessment (RN) Last Done: 06/24/22 11:30 Coding Level of Care Code HOSP INP/OBS DISCH >30 MIN Diagnoses Sepsis due to Escherichia coli A41.51 Acute cholecystitis K81.0 Hematemesis K92.0 Nausea presence: unspecified Elevated liver enzymes R74.8 Atrial fibrillation with rapid ventricular response I48.91 Bradycardia R00.1 Diabetes mellitus E11.9 Squamous cell carcinoma of left upper extremity C44.629 Encephalopathy G93.40 Time Spent (min) 35
== END 2022-06-24 11:41 | disposition short-term general hospital (02) | DRG 853 ==
LOC: ED 06:40 → ASU 11:59 → 1E 11:59